=== PATIENT | female | born 1965 | race Caucasian/White ===

== ENCOUNTER 2017-11-10 23:12 | Inpatient (IN) ==
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
[2017-11-10 23:53] LABS: Basophils % 0.3 %; Eosinophils # 0.1 K/mcL (0.0-0.6); Eosinophils % 1.3 %; Hematocrit 29.4 % (35.3-44.9); Hemoglobin 9.9 g/dL (11.5-15.4); Immature Granulocytes % 0.4 % (0-4); Lymphocytes # 1.1 K/mcL (0.6-4.6); Lymphocytes % 15.2 %; Mean Corpuscular HGB Conc 33.7 g/dL (31.6-35.5); Mean Corpuscular Hemoglobin 29.4 pg (28.0-33.3); Mean Corpuscular Volume 87.2 fL (83.0-100.0); Mean Platelet Volume 10.5 fL (9.4-12.4); Monocytes # 0.7 K/mcL (0.0-1.3); Monocytes % 8.6 %; Neutrophils # 5.6 K/mcL (1.6-8.9); Platelet Count 255 K/mcL (140-400); Red Blood Count 3.37 M/mcL (3.82-4.97); Red Cell Distribution Width 12.6 % (11.5-14.5); Segmented Neutrophils % 74.2 %
[2017-11-11 00:05] LABS: BUN/Creatinine Ratio 14 (6-26); Blood Urea Nitrogen 47 mg/dL (6-20); Calcium 8.9 mg/dL (8.6-10.3); Carbon Dioxide 28 mEq/L (23-29); Chloride 93 mEq/L (98-107); Glucose 217 mg/dL (70-105); Osmolality,Calculated 301 (280-300); Potassium 3.4 mEq/L (3.5-5.1); Sodium 136 mEq/L (136-145); eGFR For African Americans 18 (> 60); eGFR For Non-African Americans 15 (> 60)
[2017-11-11 00:18] LABS: Bilirubin,Urine Negative (Negative); Blood,Urine Small (Negative); Clarity,Urine Turbid (Clear); Color,Urine Yellow (Yellow); Glucose,Urine (UA) 250 mg/dL (Normal); Ketones,Urine Negative (Negative); Leukocyte Esterase,Urine Large (Negative); Nitrite,Urine Negative (Negative); Protein,Urine Trace mg/dL (Neg-Trace); Specific Gravity,Urine 1.018 (1.010-1.025); Urobilinogen,Urine Normal (Normal)
[2017-11-11 00:23] LABS: Bacteria,Urine Many per hpf (None-Few); Squamous Epithelial Cell,Urine Many per lpf (None-Few); WBC,Urine TNTC per hpf (0-3)
[2017-11-11 00:45] LABS: Hyaline Casts,Urine Few per lpf (None-Few); Mucus,Urine Moderate (Few); Trichomonas,Urine Present (None Seen); Yeast,Urine Moderate per hpf (None Seen)
[2017-11-11 01:21] LABS: Acetaminophen < 10 mcg/mL (10-20); Ethanol < 10 mg/dL (Less than 10); Salicylate < 2.5 mg/dL (15.0-30.0)
[2017-11-11 01:24] LABS: Amphetamine Screen,Urine Negative ng/mL (Cutoff=1000); Barbiturate Screen,Urine Negative ng/mL (Cutoff=200); Benzodiazepines Screen,Urine Negative ng/mL (Cutoff=200); Cannabinoid Screen,Urine Negative ng/mL (Cutoff = 50); Cocaine Screen,Urine Positive ng/mL (Cutoff= 300); Opiate Screen,Urine Negative ng/mL (Cutoff=300); Phencyclidine Screen,Urine Negative ng/mL (Cutoff=25)
[2017-11-11] MEDS ORDERED: metroNIDAZOLE 500 MG TABLET PO ONE (02:34)
[2017-11-11] MEDS ORDERED: cefTRIAXone 1,000 MG in Water for inj. (sterile) 20 ML 10 ML IVP ONE (02:35)
[2017-11-11] MEDS ORDERED: 0.9 % Sodium Chloride 1,000 ML IVC ONE (02:35)
[2017-11-11] MEDS ORDERED: Naloxone 0.4 MG/ML INJ IVP PRN (05:39)
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
[2017-11-11] MEDS ORDERED: Dextrose Gel 15 GM/37.5 ML TUBE PO PRN ×2 (05:51)
[2017-11-11] MEDS ORDERED: *HR* Dextrose 50 % in Water (Syg) 50 ML SYRINGE IVP PRN (05:51)
[2017-11-11] MEDS ORDERED: D5% in Water 1,000 ML IVC PRN (05:51)
[2017-11-11] MEDS ORDERED: Artificial Tears SOLN 15 ML BOTTLE OP PRN (06:00)
[2017-11-11] MEDS: *HR* Heparin 5,000 UNIT/ML VIAL SQ SCH ×2 (07:03→17:53)
[2017-11-11] MEDS: 0.9 % Sodium Chloride 1,000 ML IVC SCH ×2 (07:06→13:20)
[2017-11-11] MEDS: Insulin DETEMIR 100 UNIT/ML X5UNITS SQ SCH (08:25)
[2017-11-11] MEDS: Insulin LISPRO 300 UNITS/3 ML VIAL SQ SCH ×4 (08:25→22:41)
[2017-11-11] MEDS: OXcarbazepine 150 MG TABLET PO SCH ×3 (15:43→23:48)
[2017-11-11] MEDS: Iron Polysaccharide Complex 150 MG CAPSULE PO SCH (15:53)
[2017-11-11] MEDS: Multivit/Ca/Min/Fe/FA 1 TAB TABLET PO SCH (15:53)
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
[2017-11-11] MEDS ORDERED: OXcarbazepine 150 MG TABLET PO SCH (21:00)
[2017-11-11] MEDS ORDERED: OXCARBAZEPINE 600 MG PO SCH (21:00)
[2017-11-11] MEDS: cefTRIAXone 1,000 MG in Water for inj. (sterile) 20 ML 10 ML IVP SCH (23:38)
[2017-11-12 04:26] LABS: Basophils % 0.6 %; Eosinophils # 0.1 K/mcL (0.0-0.6); Eosinophils % 2.3 %; Hematocrit 26.7 % (35.3-44.9); Hemoglobin 8.8 g/dL (11.5-15.4); Immature Granulocytes % 0.6 % (0-4); Lymphocytes # 1.4 K/mcL (0.6-4.6); Lymphocytes % 27.3 %; Mean Corpuscular Volume 88.1 fL (83.0-100.0); Mean Platelet Volume 11.1 fL (9.4-12.4); Monocytes # 0.5 K/mcL (0.0-1.3); Monocytes % 10.1 %; Platelet Count 225 K/mcL (140-400); Red Blood Count 3.03 M/mcL (3.82-4.97); Red Cell Distribution Width 12.6 % (11.5-14.5); Segmented Neutrophils % 59.1 %
[2017-11-12 04:39] LABS: Calcium 8.2 mg/dL (8.6-10.3); Magnesium 1.2 mg/dL (1.6-2.6); Potassium 3.5 mEq/L (3.5-5.1)
[2017-11-12] MEDS: *HR* Heparin 5,000 UNIT/ML VIAL SQ SCH ×2 (05:46→17:07)
[2017-11-12] MEDS: Multivit/Ca/Min/Fe/FA 1 TAB TABLET PO SCH (07:36)
[2017-11-12] MEDS: Iron Polysaccharide Complex 150 MG CAPSULE PO SCH (07:36)
[2017-11-12] MEDS: Insulin LISPRO 300 UNITS/3 ML VIAL SQ SCH ×4 (07:39→21:21)
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
[2017-11-12] MEDS: Insulin DETEMIR 100 UNIT/ML X5UNITS SQ SCH (12:21)
[2017-11-12] MEDS: cefTRIAXone 1,000 MG in Water for inj. (sterile) 20 ML 10 ML IVP SCH (17:07)
[2017-11-12] MEDS: OXcarbazepine 150 MG TABLET PO SCH (21:20)
[2017-11-13 05:41] LABS: Basophils # 0.1 K/mcL (0.0-0.2); Basophils % 0.7 %; Eosinophils # 0.2 K/mcL (0.0-0.6); Eosinophils % 3.2 %; Hematocrit 28.2 % (35.3-44.9); Hemoglobin 9.3 g/dL (11.5-15.4); Immature Granulocytes % 1.6 % (0-4); Lymphocytes # 1.8 K/mcL (0.6-4.6); Lymphocytes % 27.1 %; Mean Corpuscular Hemoglobin 29.3 pg (28.0-33.3); Mean Platelet Volume 10.9 fL (9.4-12.4); Monocytes # 0.5 K/mcL (0.0-1.3); Monocytes % 7.7 %; Platelet Count 261 K/mcL (140-400); Red Blood Count 3.17 M/mcL (3.82-4.97); Red Cell Distribution Width 12.7 % (11.5-14.5); Segmented Neutrophils % 59.7 %
[2017-11-13] MEDS: *HR* Heparin 5,000 UNIT/ML VIAL SQ SCH ×2 (05:44→16:59)
[2017-11-13 06:10] LABS: Calcium 8.4 mg/dL (8.6-10.3); Potassium 4.4 mEq/L (3.5-5.1)
[2017-11-13] MEDS: Insulin LISPRO 300 UNITS/3 ML VIAL SQ SCH ×4 (07:38→22:28)
[2017-11-13] MEDS: Insulin DETEMIR 100 UNIT/ML X5UNITS SQ SCH (08:38)
[2017-11-13] MEDS: Multivit/Ca/Min/Fe/FA 1 TAB TABLET PO SCH (08:38)
[2017-11-13] MEDS: Iron Polysaccharide Complex 150 MG CAPSULE PO SCH (08:38)
--- NOTE | 2017-11-13 10:10 | Urology - Consult Note ---
Date of Encounter: 11/13/17 Time of Encounter: 10:08 - Assessment and Plan (1) Hydronephrosis Current Visit: Yes Status: Acute Assessment and plan: 52-year-old woman with a history of right hydronephrosis. She is following with my partner, Dr. Boone, who is corning her workup. Although she does have a urinary tract infection, she does not show any signs of sepsis. There is preserved right renal function. No current need for right ureteral stent placement for right nephrostomy tube at this time. I discussed this case with Dr. Boone. He plans on following up with her as an outpatient which seems reasonable. I answered all of her questions. Qualifiers: Hydronephrosis type: with ureteropelvic junction obstruction Qualified Code (s): Q62.11 - Congenital occlusion of ureteropelvic junction (2) UTI (urinary tract infection) Current Visit: Yes Status: Acute Assessment and plan: 52-year-old woman with a history of a urinary tract infection growing out Staphylococcus. She is currently on ceftriaxone. We will see what the final cultures show for sensitivity. Hopefully, we will be able to transition her to an oral antibiotic such as Bactrim or dicloxacillin. Qualifiers: Urinary tract infection type: acute cystitis Hematuria presence: without hematuria Qualified Code(s): N30.00 - Acute cystitis without hematuria Urology CN:[facility] Consult date: 11/13/17 Reason for consult Urology: Hydronephrosis History of present illness: 52-year-old woman who is well-known to the urology service was seen in consultation for right-sided hydronephrosis. She was recently admitted for medical clearance prior to admission to a long-term. In her workup she was noted to have a urinary tract infection. Currently, gram-positive cocci are growing out. She has been treated for this infection. During her workup a renal and bladder ultrasound was performed which showed evidence of right hydronephrosis. She has a long history of right sided hydronephrosis and recently underwent a nuclear renal scan with IV Lasix. This showed concern for a partial right sided obstruction, but her renal function was well-preserved. She is not having much in the way of right-sided flank pain at this time. She does not show any signs of sepsis. She says she is urinating well. Past Med Surg Social Fam HX - Past Medical History Medical history: diabetes, other Psychiatric history: bipolar, depression - Past Surgical History Surgical History: no surgical history - Social History Smoking Status: Never smoker Smokeless Tobacco Status: No Alcohol use: none Drug use: cocaine, other - Family History Father Living Status: Still Living Medications and Allergies Artificial Tear Drops [Isopto Tears] 1 drop OP AD 04/01/15 [History] Cyclobenzaprine [Flexeril] 10 mg PO TID PRN 04/01/15 [History] Insulin ASPART [NovoLOG] 5 - 15 unit SQ TIDWM 04/01/15 [History] Calcitriol [Rocaltrol] 0.25 mcg PO MOWEFR 11/11/17 [History] Insulin Degludec [Tresiba Flextouch U-100] 20 unit SQ DAILY 11/11/17 [History] Iron Polysaccharide Complex [Pro Fe] 180 mg PO QAM 11/11/17 [History] Multivit-Minerals/Folic Acid [Adult Multi Gummies] 200 mcg PO DAILY 11/11/17 [ History] OXcarbazepine [Oxcarbazepine] 600 mg PO HS 11/11/17 [History] Sertraline [Zoloft] 25 mg PO DAILY 11/11/17 [History] 3 Allergy/AdvReac Type Severity Reaction Status Date / Time No Known Allergies Allergy Verified 11/11/17 12:56 Review of Systems - Constitutional no chills, no fever(s) - EENT Nose, mouth and throat: no dizziness - Cardiovascular no chest pain - Respiratory no dyspnea - Gastrointestinal no nausea, no vomiting - Genitourinary Genitourinary: no flank pain, no hematuria - Musculoskeletal no back pain - Integumentary no erythema, no rash - Neurological no weakness - Psychiatric no suicidal ideation - Hematologic/Lymphatic no easy bleeding - Allergic/Immunologic no wheezing Exam Initial Vital Signs Temp Pulse Resp BP Pulse Ox 98.6 F 88 18 98/64 96 11/10/17 23:14 11/10/17 23:14 11/10/17 23:14 11/10/17 23:14 11/10/17 23:14 - General physical appearance Present: well developed, well nourished, no distress - Eyes Absent: icteric - ENT Present: normal nares - Neck Present: trachea midline - Respiratory Present: normal respiratory effort - Cardiovascular Cardiovascular exam IM: RRR - Abdomen Abdomen: Present: soft Urology Results - Labs 11/13/17 04:45 11/13/17 04:45 Abnormal lab results RBC 3.17 M/mcL (3.82-4.97) L 11/13/17 04:45 Hgb 9.3 g/dL (11.5-15.4) L 11/13/17 04:45 Hct 28.2 % (35.3-44.9) L 11/13/17 04:45 BUN 34 mg/dL (6-20) H 11/13/17 04:45 Creatinine 2.18 mg/dL (0.60-1.20) H 11/13/17 04:45 Est GFR ( Amer) 29 (> 60) L 11/13/17 04:45 Est GFR (Non-Af Amer) 24 (> 60) L 11/13/17 04:45 Glucose 60 mg/dL (70-105) L 11/13/17 04:45 POC Glucose 229 mg/dL (58-89) H 11/12/17 19:09 Calcium 8.4 mg/dL (8.6-10.3) L 11/13/17 04:45 Magnesium 1.2 mg/dL (1.6-2.6) L 11/12/17 03:07 Urine Clarity Turbid (Clear) A 11/11/17 00:03 Urine Glucose (UA) 250 mg/dL (Normal) H 11/11/17 00:03 Urine Blood Small (Negative) H 11/11/17 00:03 Ur Leukocyte Esterase Large (Negative) H 11/11/17 00:03 Urine Microscopic RBC 3-5 per hpf (0-3) H 11/11/17 00:03 Urine Microscopic WBC TNTC per hpf (0-3) H 11/11/17 00:03 Ur Squamous Epith Cells Many per lpf (None-Few) H 11/11/17 00:03 Urine Bacteria Many per hpf (None-Few) H 11/11/17 00:03 Urine Mucus Moderate (Few) H 11/11/17 00:03 Urine Trichomonas Present (None Seen) A 11/11/17 00:03 Urine Yeast Moderate per hpf (None Seen) H 11/11/17 00:03 Salicylates < 2.5 mg/dL (15.0-30.0) L 11/10/17 23:32 Acetaminophen < 10 mcg/mL (10-20) L 11/10/17 23:32 Urine Cocaine Screen Positive ng/mL (Cutoff= 300) H 11/11/17 00:03 Diabetes panel 11/13/17 Range/Units 04:45 Sodium 139 (136-145) mEq/L Potassium 4.4 (3.5-5.1) mEq/L Chloride 101 (98-107) mEq/L Carbon Dioxide 29 (23-29) mEq/L BUN 34 H (6-20) mg/dL Creatinine 2.18 H (0.60-1.20) mg/dL Glucose 60 L (70-105) mg/dL Calcium 8.4 L (8.6-10.3) mg/dL Calcium panel 11/13/17 Range/Units 04:45 Calcium 8.4 L (8.6-10.3) mg/dL Pituitary panel 11/13/17 Range/Units 04:45 Sodium 139 (136-145) mEq/L Potassium 4.4 (3.5-5.1) mEq/L Chloride 101 (98-107) mEq/L Carbon Dioxide 29 (23-29) mEq/L BUN 34 H (6-20) mg/dL Creatinine 2.18 H (0.60-1.20) mg/dL Glucose 60 L (70-105) mg/dL Calcium 8.4 L (8.6-10.3) mg/dL Adrenal panel 11/13/17 Range/Units 04:45 Sodium 139 (136-145) mEq/L Potassium 4.4 (3.5-5.1) mEq/L Chloride 101 (98-107) mEq/L Carbon Dioxide 29 (23-29) mEq/L BUN 34 H (6-20) mg/dL Creatinine 2.18 H (0.60-1.20) mg/dL Glucose 60 L (70-105) mg/dL Calcium 8.4 L (8.6-10.3) mg/dL All other labs normal. - Imaging CT scan - abdomen: report reviewed, image reviewed CT scan - pelvis: report reviewed, image reviewed US - abdomen: report reviewed, image reviewed Additional studies: Nuclear renal scan reviewed. Consult Discharge Plan - Plan Referrals: Tanner Renteria, PAC [Primary Care Provider] -
[2017-11-13] MEDS ORDERED: hydrOXYzine pamoate 25 MG CAPSULE PO STA ×2 (11:20→16:20)
--- NOTE | 2017-11-13 12:25 | Nephrology Consult Note ---
<Jony Haley - Last Filed: 11/13/17 15:48> Date of Encounter: 11/13/17 Time of Encounter: 12:24 Assessment and Plan (1) Acute kidney injury superimposed on chronic kidney disease Status: Acute JAKE on CKD III. Patient reports CKD3 since 2014. Cr on admission was 3.30 ( baseline 1.5-1.75). Was improving, and is now stable around 2.18. Renal U/S identified a mild R hydronephrosis. And she also has a UTI on this admission, and has recently started using Crack Cocaine. All are most likely contributors to her JAKE. Will further workup JAKE. - Fifi, UCr, Ueosinophils, Uric Acid - pending. - renal diet - continue fluid resuscitation - avoid nephrotoxins. (2) Crack cocaine use Status: Acute Patient educated to quit using crack cocaine. (3) Hep C w/o coma, chronic Status: Acute Patient self reports hx of hep C. Ordered hep panel. (4) Stage 3 chronic kidney disease due to type 2 diabetes mellitus Status: Chronic see above (5) Trichomonas infection Status: Acute (6) UTI (urinary tract infection) Status: Acute per primary team Qualifiers: Urinary tract infection type: acute cystitis Hematuria presence: without hematuria Qualified Code(s): N30.00 - Acute cystitis without hematuria History of Present Illness - Reason for Consult Consult date: 11/13/17 Acute Kidney Injury, Chronic Kidney Disease Requesting physician: Satnam Vaca - Chief Complaint UTI - History of Present Illness Ms Kuhn is a 52 yo F w/ pmh of CKD presents with UTI, R hydro, trichomonas infection, DM. Nephrology is consulted due to JAKE on CKD. Patient is poor historian, and was talking tangentially. Patient states that she has had hx of ckd 3 since 2014, and that she take renal vitamins for it. Patient says she is stressed about her housing situation. Patient states she has been feeling tired for the last few months. She has been sober for 7 years, and decided 1 month ago to start smoking crack on an every other day basis with her new boyfriend. It helps her not to feel tired all the time. patient also states she has hep C and is interested in treatment. Patient denies current chest pain , sob, n/v/f/c. Past Med Surg Social Fam HX - Past Medical History Medical history: diabetes, other Psychiatric history: bipolar, depression - Past Surgical History Surgical History: no surgical history - Social History Smoking Status: Never smoker Smokeless Tobacco Status: No Alcohol use: none Drug use: cocaine, other - Family History Father Living Status: Still Living Medications and Allergies Artificial Tear Drops [Isopto Tears] 1 drop OP AD 04/01/15 [History] Cyclobenzaprine [Flexeril] 10 mg PO TID PRN 04/01/15 [History] Insulin ASPART [NovoLOG] 5 - 15 unit SQ TIDWM 04/01/15 [History] Calcitriol [Rocaltrol] 0.25 mcg PO MOWEFR 11/11/17 [History] Insulin Degludec [Tresiba Flextouch U-100] 20 unit SQ DAILY 11/11/17 [History] Iron Polysaccharide Complex [Pro Fe] 180 mg PO QAM 11/11/17 [History] Multivit-Minerals/Folic Acid [Adult Multi Gummies] 200 mcg PO DAILY 11/11/17 [ History] OXcarbazepine [Oxcarbazepine] 600 mg PO HS 11/11/17 [History] Sertraline [Zoloft] 25 mg PO DAILY 11/11/17 [History] Amoxicillin [Amoxil] 500 mg PO BIDWM #11 capsule 11/15/17 [Rx] 3 Allergy/AdvReac Type Severity Reaction Status Date / Time No Known Allergies Allergy Verified 11/11/17 12:56 Review of Systems All Systems: reviewed and no additional remarkable complaints except as stated Exam - Vital Signs Vital signs: Initial Vital Signs Temp Pulse Resp BP Pulse Ox 98.6 F 88 18 98/64 96 11/10/17 23:14 11/10/17 23:14 11/10/17 23:14 11/10/17 23:14 11/10/17 23:14 Vital Signs - Last 8 Hours Temp Pulse Resp BP Pulse Ox 11/13/17 10:25 99.4 F 90 18 143/73 99 11/13/17 10:17 98.6 F 82 15 111/66 100 11/13/17 08:41 100 11/13/17 07:25 97.6 F 72 16 98/63 100 Intake and Output 11/12/17 11/13/17 11/13/17 23:59 07:59 15:59 Intake Total 440 / 440 Output Total 800 / 800 0 / 0 Balance -360 / -360 0 / 0 Intake: Oral 440 / 440 Output: Urine 800 / 800 0 / 0 Other: Meal Dinner Percent of Meal Consumed 100% Weight 56.155 kg Blood Glucose* 229 99 250 Patient Weight 11/13/17 23:59 Weight 56.155 kg - General Appearance General appearance: appears started age, fatigue, anxious EENT: mucous membranes moist Neck: supple Respiratory: clear Cardiology: regular rate, regular rhythm Gastrointestinal: hypoactive bowel sounds Neurologic: alert and oriented x3 Psychiatric: pressured speech Results - Lab Results 11/13/17 04:45 11/13/17 04:45 Most recent lab results Calcium 8.4 mg/dL (8.6-10.3) L 11/13/17 04:45 Magnesium 1.2 mg/dL (1.6-2.6) L 11/12/17 03:07 Consult Discharge Plan - Plan Instructions: Acute Kidney Injury (DC), Urinary Tract Infection in Women (DC), Hydronephrosis (DC) Additional Instructions: Please follow up with your primary care physician within five days after your discharge from the hospital Please follow up with nephrology within two to four weeks after your discharge from the hospital. Please obtain the prescribed lab work prior to your follow up with your primary care physician. Continue oral antibiotics as prescribed. Resume all other home medications as prescribed by your primary care physician. Referrals: Galilea Jaffe [Advanced Practice Nurse] - 11/20/17 1:30 pm (Please follow up as schedule...) Gregg Kim DO [Partnered Physician] - 11/28/17 9:30 am (Please follow up as schedule...) Prescriptions: Amoxicillin [Amoxil] 500 mg PO BIDWM #11 capsule <Shirley Grant - Last Filed: 11/20/17 00:20> Date of Encounter: 11/13/17 Exam - Vital Signs Vital signs: Initial Vital Signs Temp Pulse Resp BP Pulse Ox 98.6 F 88 18 98/64 96 11/10/17 23:14 11/10/17 23:14 11/10/17 23:14 11/10/17 23:14 11/10/17 23:14 Results - Lab Results 11/15/17 05:31 11/15/17 05:31 Most recent lab results Calcium 8.6 mg/dL (8.6-10.3) 11/15/17 05:31 Phosphorus 4.3 mg/dL (2.7-4.5) 11/15/17 05:31 Magnesium 1.3 mg/dL (1.6-2.6) L 11/15/17 05:31 Urine Creatinine 45 mg/dL 11/13/17 15:59 Urine Sodium 96.5 mEq/L 11/13/17 15:59 - Attending Attestation I examined this patient and my medical decision-making was reviewed with the Resident Physician. I agree with the documented findings, disposition and treatment plan as described except to the extent set forth below. Pt seen and examined with PMH of stage 3 CKD admitted for "medical clearance" and found with elevated SCr from baseline. She was also noted with UTI and mild R hydronephrosis on US with urology consulted. Etiology of JAKE likley pre-renal vz obstructive, notable also is recent use of crack cocaine which can cause vasospams. Agree with continued fluid resuscitation. JAKE workup started. Avoid nephrotoxins if possible. 

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
[2017-11-13 17:25] LABS: Uric Acid 8.6 mg/dL (2.3-7.6)
[2017-11-13 18:35] LABS: Hepatitis A Antibody IgM Nonreactive (Nonreactive); Hepatitis B Core IgM Nonreactive (Nonreactive); Hepatitis B Surface Antigen Nonreactive (Nonreactive)
[2017-11-13] MEDS: OXcarbazepine 150 MG TABLET PO SCH (22:29)
[2017-11-13 23:54] LABS: Sodium, Urine 96.5 mEq/L
[2017-11-14 04:25] LABS: Basophils % 0.6 %; Eosinophils # 0.1 K/mcL (0.0-0.6); Hematocrit 26.5 % (35.3-44.9); Hemoglobin 8.7 g/dL (11.5-15.4); Lymphocytes # 1.8 K/mcL (0.6-4.6); Lymphocytes % 27.4 %; Mean Corpuscular HGB Conc 32.8 g/dL (31.6-35.5); Mean Corpuscular Hemoglobin 29.3 pg (28.0-33.3); Mean Corpuscular Volume 89.2 fL (83.0-100.0); Mean Platelet Volume 10.5 fL (9.4-12.4); Monocytes # 0.6 K/mcL (0.0-1.3); Monocytes % 9.8 %; Neutrophils # 3.7 K/mcL (1.6-8.9); Platelet Count 248 K/mcL (140-400); Red Blood Count 2.97 M/mcL (3.82-4.97); Red Cell Distribution Width 12.7 % (11.5-14.5); Segmented Neutrophils % 58.2 %
[2017-11-14 04:43] LABS: Calcium 8.3 mg/dL (8.6-10.3)
[2017-11-14] MEDS: *HR* Heparin 5,000 UNIT/ML VIAL SQ SCH ×2 (05:00→17:36)
[2017-11-14] MEDS: Iron Polysaccharide Complex 150 MG CAPSULE PO SCH (08:29)
[2017-11-14] MEDS: Multivit/Ca/Min/Fe/FA 1 TAB TABLET PO SCH (08:29)
[2017-11-14] MEDS: Insulin LISPRO 300 UNITS/3 ML VIAL SQ SCH ×4 (08:51→22:28)
[2017-11-14] MEDS: Insulin DETEMIR 100 UNIT/ML X5UNITS SQ SCH (08:51)
--- NOTE | 2017-11-14 08:52 | Nephrology Progress Note ---
<TeraJony - Last Filed: 11/14/17 12:50> Date of Encounter: 11/14/17 Time of Encounter: 08:52 - Assessment and Plan (1) Acute kidney injury superimposed on chronic kidney disease Status: Acute JAKE on CKD 3 most likely 2/2 ATN from crack cocaine induced ischemia, and dehydration. This is supported by FENa which is 3.4% suggestive of intrinsic renal damage. Cr has slight improvement and most likely plateaued at this time. Will continue to follow. Patient will need to be followed up outpatient with nephrology after discharge. No SOUND RECORDIST rrequired at this time. Patient is non -oliguric. - avoid nephrotoxins - renal diet - strict I/O - continue oral intake (2) Crack cocaine use Status: Acute advised cessation (3) Hep C w/o coma, chronic Status: Acute labs pending (4) Stage 3 chronic kidney disease due to type 2 diabetes mellitus Status: Chronic see above (5) Trichomonas infection Status: Acute per primary care team (6) UTI (urinary tract infection) Status: Acute per primary care team Qualifiers: Urinary tract infection type: acute cystitis Hematuria presence: without hematuria Qualified Code(s): N30.00 - Acute cystitis without hematuria Subjective Principal diagnosis: JAKE Interval history: Mr Kuhn is a 52 yo F w/ pmh of hep C, CKD3, crack cocaine usage presents with JAKE. Nephrology is consulted for JAKE. Patient is seen and examined. No events overnight and no new complaints. Patient denies f/c/n/v. Objective - Vital Signs Vital signs: Vital Signs Temp Pulse Resp BP Pulse Ox 11/14/17 07:29 97.4 F L 71 18 93/59 97 11/14/17 05:23 98.2 F 118 17 106/65 90 11/13/17 23:48 97.5 F L 71 16 106/68 100 11/13/17 21:07 98 F 70 16 93/61 99 11/13/17 15:20 98.4 F 80 15 132/81 100 11/13/17 10:25 99.4 F 90 18 143/73 99 11/13/17 10:17 98.6 F 82 15 111/66 100 Intake and Output 11/13/17 11/14/17 11/14/17 23:59 07:59 15:59 Intake Total 250 / 250 400 / 400 240 / 240 Output Total 500 / 500 Balance 250 / 250 -100 / -100 240 / 240 Intake: Oral 250 / 250 400 / 400 240 / 240 Output: Urine 500 / 500 Other: Meal Breakfast Percent of Meal Consumed 75% # Voids 2 2 Weight 55.5 kg Blood Glucose* 332 136 Patient Weight 11/14/17 23:59 Weight 55.5 kg - General Appearance General appearance: Present: well-developed, well-nourished, appears started age Neck: Present: supple Respiratory: Present: clear Cardiology: Present: no edema, regular rate, regular rhythm Gastrointestinal: Present: hypoactive bowel sounds, distended Integumentary: Present: warm and dry Neurologic: Present: alert and oriented x3 Psychiatric: Present: mood/affect appropriate, cooperative, pressured speech - Lab 11/14/17 03:59 11/14/17 03:59 Most recent lab results Calcium 8.3 mg/dL (8.6-10.3) L 11/14/17 03:59 Magnesium 1.2 mg/dL (1.6-2.6) L 11/12/17 03:07 Urine Creatinine 45 mg/dL 11/13/17 15:59 Urine Sodium 96.5 mEq/L 11/13/17 15:59 Consult Discharge Plan - Plan Instructions: Acute Kidney Injury (DC), Urinary Tract Infection in Women (DC), Hydronephrosis (DC) Additional Instructions: Please follow up with your primary care physician within five days after your discharge from the hospital Please follow up with nephrology within two to four weeks after your discharge from the hospital. Please obtain the prescribed lab work prior to your follow up with your primary care physician. Continue oral antibiotics as prescribed. Resume all other home medications as prescribed by your primary care physician. Referrals: Galilea Jaffe [Advanced Practice Nurse] - 11/20/17 1:30 pm (Please follow up as schedule...) Gregg Kim DO [Partnered Physician] - 11/28/17 9:30 am (Please follow up as schedule...) <Shirley Grant - Last Filed: 12/12/17 23:18> Date of Encounter: 11/14/17 Objective - Lab 11/15/17 05:31 11/15/17 05:31 Most recent lab results Calcium 8.6 mg/dL (8.6-10.3) 11/15/17 05:31 Phosphorus 4.3 mg/dL (2.7-4.5) 11/15/17 05:31 Magnesium 1.3 mg/dL (1.6-2.6) L 11/15/17 05:31 Urine Creatinine 45 mg/dL 11/13/17 15:59 Urine Sodium 96.5 mEq/L 11/13/17 15:59 - Attending Attestation I examined this patient and my medical decision-making was reviewed with the Resident Physician. I agree with the documented findings, disposition and treatment plan as described except to the extent set forth below. Pt seen and examined with elevated SCr from baseline consistent with JAKE likely from vasospasms from cocaine use and relative volume depletion. SCr now at 2.12 , GFR 24. UOP not documented. Continue IVF for now. Continue to avoid nephrotoxins if possible.
[2017-11-14 09:59] LABS: % Iron Saturation 45 % (15-50); Iron 133 mcg/dL (50-170); Transferrin 210 mg/dL (203-362)
[2017-11-14 10:22] LABS: Folate 16.4 ng/mL (3.0-16.0)
[2017-11-14] MEDS: hydrOXYzine pamoate 25 MG CAPSULE PO PRN (11:46)
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
[2017-11-14] MEDS: 0.9 % Sodium Chloride 1,000 ML IVC SCH ×2 (15:27→18:11)
[2017-11-14] MEDS: Acetaminophen 325 MG TABLET PO PRN (15:45)
[2017-11-14] MEDS: Amoxicillin 500 MG CAPSULE PO SCH (17:36)
[2017-11-14] MEDS: OXcarbazepine 150 MG TABLET PO SCH (22:28)
[2017-11-15] MEDS: Acetaminophen 325 MG TABLET PO PRN (05:06)
[2017-11-15] MEDS: hydrOXYzine pamoate 25 MG CAPSULE PO PRN (05:07)
[2017-11-15] MEDS: *HR* Heparin 5,000 UNIT/ML VIAL SQ SCH (05:07)
[2017-11-15 06:06] LABS: Basophils % 0.6 %; Eosinophils # 0.1 K/mcL (0.0-0.6); Eosinophils % 2.1 %; Hematocrit 28.6 % (35.3-44.9); Hemoglobin 9.1 g/dL (11.5-15.4); Immature Granulocytes % 2.3 % (0-4); Lymphocytes # 1.4 K/mcL (0.6-4.6); Lymphocytes % 21.1 %; Mean Corpuscular HGB Conc 31.8 g/dL (31.6-35.5); Mean Corpuscular Hemoglobin 28.7 pg (28.0-33.3); Mean Corpuscular Volume 90.2 fL (83.0-100.0); Mean Platelet Volume 11.7 fL (9.4-12.4); Monocytes # 0.6 K/mcL (0.0-1.3); Monocytes % 8.4 %; Neutrophils # 4.5 K/mcL (1.6-8.9); Platelet Count 183 K/mcL (140-400); Red Blood Count 3.17 M/mcL (3.82-4.97); Red Cell Distribution Width 12.9 % (11.5-14.5); Segmented Neutrophils % 65.5 %
[2017-11-15 06:23] LABS: Calcium 8.6 mg/dL (8.6-10.3); Magnesium 1.3 mg/dL (1.6-2.6); Phosphorous 4.3 mg/dL (2.7-4.5); Potassium 4.6 mEq/L (3.5-5.1)
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
[2017-11-15] MEDS: 0.9 % Sodium Chloride 1,000 ML IVC SCH (07:47)
[2017-11-15] MEDS: Insulin LISPRO 300 UNITS/3 ML VIAL SQ SCH ×2 (07:48→12:08)
[2017-11-15] MEDS: Amoxicillin 500 MG CAPSULE PO SCH (08:34)
[2017-11-15] MEDS: Multivit/Ca/Min/Fe/FA 1 TAB TABLET PO SCH (08:34)
[2017-11-15] MEDS: Iron Polysaccharide Complex 150 MG CAPSULE PO SCH (08:34)
[2017-11-15] MEDS: Insulin DETEMIR 100 UNIT/ML X5UNITS SQ SCH (08:35)
[2017-11-15] MEDS ORDERED: Magnesium Oxide 400 MG TABLET PO SCH (09:00)
[2017-11-15 09:19] LABS: Hepatitis C Virus Antibody Reactive (Nonreactive)
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
[2017-11-15 11:41] VITALS: BP 123/67
== END 2017-11-15 15:24 | disposition home or self-care (01) | DRG 683 ==
LOC: 2ANU 23:12 → EMEROO 23:12 → 2ANU 11-11 05:05 → SUATTDRO 11-11 05:39
PROVIDERS: ADMIT Internal Medicine Nephrology; ATTEND Internal Medicine

== ENCOUNTER 2017-11-27 12:29 | Inpatient (IN) ==
--- NOTE | 2017-11-27 12:38 | Emergency Department Note ---
Disposition Clinical Impression: Diabetes, Hypoglycemia Disposition: Home, Self-Care Condition: Good Instructions: How to Check Your Blood Sugar (ED), Diabetes Mellitus Type 1 in Adults (ED), Diabetic Hypoglycemia (ED) Reasons to Return/Additional Instructions: Please be sure to eat every time you take your insulin. You should eat food that has sugar in it if you notice that your blood sugar is below 60. Please follow-up with your primary care physician by Monday. If you have any questions or concerns or signs or symptoms are concerning to you please return to the emergency department. Referrals: Tanner Renteria, PAC [Primary Care Provider] - Forms: ED Satisfaction Letter, Work/School Release General Adult HPI - General Stated complaint: low sugar Time Seen by Provider: 11/27/17 12:32 - Related Data Home Medications Medication Instructions Recorded Confirmed Artificial Tear Drops [Isopto 1 drop OP AD 04/01/15 11/11/17 Tears] Cyclobenzaprine [Flexeril] 10 mg PO TID PRN 04/01/15 11/11/17 Insulin ASPART [NovoLOG] 5 - 15 unit SQ TIDWM 04/01/15 11/11/17 Calcitriol [Rocaltrol] 0.25 mcg PO MOWEFR 11/11/17 11/11/17 Insulin Degludec [Tresiba 20 unit SQ DAILY 11/11/17 11/11/17 Flextouch U-100] Iron Polysaccharide Complex [Pro 180 mg PO QAM 11/11/17 11/11/17 Fe] Multivit-Minerals/Folic Acid 200 mcg PO DAILY 11/11/17 11/11/17 [Adult Multi Gummies] OXcarbazepine [Oxcarbazepine] 600 mg PO HS 11/11/17 11/11/17 Sertraline [Zoloft] 25 mg PO DAILY 11/11/17 11/11/17 Previous Rx's Medication Instructions Recorded Amoxicillin [Amoxil] 500 mg PO BIDWM #11 capsule 11/15/17 Allergies Allergy/AdvReac Type Severity Reaction Status Date / Time No Known Allergies Allergy Verified 11/11/17 12:56 Past Medical History - Past Medical History Medical history: Reports: diabetes, other Surgical history: Reports: no surgical history Psychiatric history: Reports: bipolar, depression - Social History Smoking Status: Never smoker Smokeless Tobacco Status: No Alcohol use: Reports: none Drug use: Reports: cocaine, other Course Vital Signs Temperature 92 F L 11/27/17 12:38 Pulse Rate 62 11/27/17 12:38 Respiratory Rate 18 11/27/17 12:38 Blood Pressure 108/81 11/27/17 12:38 O2 Sat by Pulse Oximetry 100 11/27/17 12:38 Temperature 92 F L 11/27/17 12:38 Pulse Rate 62 11/27/17 12:38 Respiratory Rate 18 11/27/17 12:38 Blood Pressure 108/81 11/27/17 12:38 O2 Sat by Pulse Oximetry 100 11/27/17 12:38 Oxygen Delivery Oxygen Delivery Room Air Medical Decision Making - Lab Data Lab Results 11/27/17 Range/Units 12:36 POC Glucose 167 H (70-99) mg/dL Attestation Statement - Attestation Attestation: I examined this patient and my medical decision-making was reviewed with the Resident Physician. I agree with the documented findings, disposition and treatment plan as described except to the extent set forth below. 7 patient presents to the emergency department for low blood sugar. She was found in the 40s by EMS and given oral glucose and an amp of D50. She is now awake and alert but complains of being shaky. Patient's been a diabetic since the age of 29. Patient awake alert no distress on examination. Abdomen soft. Plan. Meal tray reevaluate. Patient is been monitored for 2 hours. Blood sugar over 200. She ate a meal tray. She is mentating at baseline. Patient is discharged home.
--- NOTE | 2017-11-27 14:17 | Emergency Department Note ---
Disposition Clinical Impression: Hypoglycemia, UTI (urinary tract infection), Sepsis, Crack cocaine use, Hypothermia Diabetes Qualifiers: Diabetes mellitus type: type 1 Diabetes mellitus complication status: without complication Qualified Code(s): E10.9 - Type 1 diabetes mellitus without complications Disposition: Admitted As Inpatient Condition: Good Instructions: How to Check Your Blood Sugar (ED), Diabetes Mellitus Type 1 in Adults (ED), Diabetic Hypoglycemia (ED) Reasons to Return/Additional Instructions: Please be sure to eat every time you take your insulin. You should eat food that has sugar in it if you notice that your blood sugar is below 60. Please follow-up with your primary care physician by Monday. If you have any questions or concerns or signs or symptoms are concerning to you please return to the emergency department. Referrals: Tanner Renteria, PAC [Primary Care Provider] - Forms: ED Satisfaction Letter, Work/School Release Time of Disposition: 14:19 General Adult HPI - General Chief complaint: ED General Medical Stated complaint: low sugar Time Seen by Provider: 11/27/17 12:32 Source: patient, EMS Nursing Notes Reviewed: Yes Vital Signs Reviewed: Yes - History of Present Illness HPI Narrative: Patient took her insulin this morning and did not eat. Found to be in the low 50s to high 40s by EMS. They gave her 1 amp of glucose. A was patient's blood sugar greater than 200. She is now around 125 while here. Mentating appropriately with no complaints Pain Scale: 0 - Related Data Home Medications Medication Instructions Recorded Confirmed Artificial Tear Drops [Isopto 1 drop OP AD 04/01/15 11/27/17 Tears] Insulin ASPART [NovoLOG] 0 unit SQ TID 04/01/15 11/27/17 Calcitriol [Rocaltrol] 0.25 mcg PO MOWEFR 11/11/17 11/27/17 Insulin Degludec [Tresiba 20 unit SQ QAM 11/11/17 11/27/17 Flextouch U-100] Iron Polysaccharide Complex [Pro 180 mg PO QAM 11/11/17 11/27/17 Fe] Multivit-Minerals/Folic Acid 200 mcg PO DAILY 11/11/17 11/27/17 [Adult Multi Gummies] OXcarbazepine [Oxcarbazepine] 600 mg PO HS 11/11/17 11/27/17 Sertraline [Zoloft] 25 mg PO DAILY 11/11/17 11/27/17 Cyclobenzaprine [Flexeril] 10 mg PO TID 11/27/17 11/27/17 lamoTRIgine [Lamictal] 25 mg PO BID 11/27/17 11/27/17 Allergies Allergy/AdvReac Type Severity Reaction Status Date / Time No Known Allergies Allergy Verified 11/27/17 18:07 All systems ED: reviewed and negative except as stated. Constitutional: Denies: fever, chills ENT ED: Denies: congestion Cardiovascular: Denies: chest pain, syncope Respiratory: Denies: cough, dyspnea Gastrointestinal: Denies: abdominal pain, nausea, vomiting, diarrhea Genitourinary: Denies: urgency, dysuria, frequency Musculoskeletal: Denies: back pain, neck pain Integumentary: Denies: rash, abrasion Neurological: Reports: weakness. Denies: headache Past Medical History - Past Medical History Attestation: Yes The following information was validated with the patient. Source: patient Medical history: Reports: diabetes, other Surgical history: Reports: no surgical history Psychiatric history: Reports: bipolar, depression - Social History Smoking Status: Never smoker Smokeless Tobacco Status: No Alcohol use: Reports: none Drug use: Reports: cocaine, other Physical Exam - General Limitations: no limitations General appearance: alert, in no apparent distress - Head Head exam: atraumatic, normocephalic, normal inspection - Eye Eye exam: Present: normal appearance, PERRL, EOMI. Absent: scleral icterus - ENT ENT exam: normal exam, normal oropharynx, mucous membranes moist - Neck Neck exam: Present: normal inspection, full ROM, trachea midline - Chest Chest inspection: Present: normal inspection, symmetric chest wall rise. Absent : tenderness - Respiratory Respiratory exam: Present: normal lung sounds bilaterally. Absent: respiratory distress - Cardiovascular Cardiovascular exam: Present: regular rate, normal rhythm, normal heart sounds - Abdominal Exam Abdominal exam: Present: soft, Non-Tender. Absent: organomegaly - Extremities Exam Extremities exam: Present: normal inspection, full ROM. Absent: tenderness, pedal edema - Back Exam Back exam: Present: normal inspection, full ROM. Absent: tenderness - Neurological Exam Neurological exam: Present: alert, oriented X3 - Psychiatric Psychiatric exam: Present: normal affect, normal mood - Skin Skin exam: Present: warm, dry, intact, normal color Course Course Narrative: Patient brought in by EMS for hypoglycemia was given 1 amp of D50 are to arrival. Blood sugar is within normal limits at this time. She has no complaints currently. We will feed patient and reassess. Uncertain clear heart tones are normal abdomen is soft and nontender. She states that she did take her insulin this morning and did not eat. She states this is happened about a month ago. She states that she attempted to get her blood sugar up prior to calling EMS however was unable to do this. On further evaluation she was taking sugar-free food in to increase her glucose. Education will be provided to the patient on how to control her blood sugar better and that she should eat with insulin administration. She has no complaints currently. - Reevaluation(s) Reevaluation #1: Patient reassessed. She has eaten her food with no issues. She is requesting discharge at this time. I feel this is reasonable. Her blood sugars back to normal limits. We will stress that she make sure to eat when she takes her insulin. Time: 14:16 Vital Signs Temperature 92 F L 11/27/17 12:38 Pulse Rate 62 11/27/17 12:38 Respiratory Rate 18 11/27/17 12:38 Blood Pressure 108/81 11/27/17 12:38 O2 Sat by Pulse Oximetry 100 11/27/17 12:38 Temperature 97 F L 11/27/17 16:43 Pulse Rate 70 11/27/17 16:43 Respiratory Rate 23 11/27/17 16:43 Blood Pressure 124/96 11/27/17 16:43 O2 Sat by Pulse Oximetry 99 11/27/17 16:43 Oxygen Delivery Oxygen Delivery Room Air Medical Decision Making - Lab Data Result diagrams: 11/27/17 14:34 11/27/17 17:17 Lab Results 11/27/17 11/27/17 11/27/17 Range/Units 12:36 14:02 14:21 WBC (4.3-11.1) K/mcL RBC (3.82-4.97) M/mcL Hgb (11.5-15.4) g/dL Hct (35.3-44.9) % MCV (83.0-100.0) fL MCH (28.0-33.3) pg MCHC (31.6-35.5) g/dL RDW (11.5-14.5) % Plt Count (140-400) K/mcL MPV (9.4-12.4) fL Immature Gran % (0-4) % Seg Neutrophils % % Lymphocytes % % Monocytes % % Eosinophils % % Basophils % % Neutrophils # (1.6-8.9) K/mcL Lymphocytes # (0.6-4.6) K/mcL Monocytes # (0.0-1.3) K/mcL Eosinophils # (0.0-0.6) K/mcL Basophils # (0.0-0.2) K/mcL Sodium Potassium Chloride Carbon Dioxide BUN Creatinine Est GFR ( Amer) Est GFR (Non-Af Amer) BUN/Creatinine Ratio Glucose POC Glucose 167 H 154 H 260 H (70-99) mg/dL Calculated Osmolality Lactic Acid (0.5-2.2) mmol/L Calcium Phosphorus Magnesium Total Bilirubin Direct Bilirubin Indirect Bilirubin AST ALT Alkaline Phosphatase Troponin I (< 0.04) ng/mL Serum Total Protein Albumin Globulin Albumin/Globulin Ratio Urine Color (Yellow) Urine Clarity (Clear) Urine pH (5.0-8.0) pH Units Ur Specific [place] (1.010-1.025) Urine Protein (Neg-Trace) mg/dL Urine Glucose (UA) (Normal) mg/dL Urine Ketones (Negative) mg/dL Urine Blood (Negative) Urine Nitrite (Negative) Urine Bilirubin (Negative) Urine Urobilinogen (Normal) mg/dL Ur Leukocyte Esterase (Negative) Urine Microscopic RBC (0-3) per hpf Urine Microscopic WBC (0-3) per hpf Ur Squamous Epith Cells (None-Few) per lpf Urine Bacteria (None-Few) per hpf Hyaline Casts (None-Few) per lpf Urine Yeast (None Seen) per hpf Ur Culture Indicated? (NO) Urine Test (Negative) Jane species DNA (Not Detect) Gardnerella DNA Probe (Not Detect) Trichomonas DNA Probe (Not Detect) Specimen Rejected 11/27/17 11/27/17 11/27/17 Range/Units 14:34 14:34 16:21 WBC 4.6 (4.3-11.1) K/mcL RBC 3.62 L (3.82-4.97) M/mcL Hgb 10.7 L (11.5-15.4) g/dL Hct 32.3 L (35.3-44.9) % MCV 89.2 (83.0-100.0) fL MCH 29.6 (28.0-33.3) pg MCHC 33.1 (31.6-35.5) g/dL RDW 13.1 (11.5-14.5) % Plt Count 129 L (140-400) K/mcL MPV 11.4 (9.4-12.4) fL Immature Gran % 0.2 (0-4) % Seg Neutrophils % 81.8 % Lymphocytes % 12.5 % Monocytes % 4.8 % Eosinophils % 0.0 % Basophils % 0.7 % Neutrophils # 3.7 (1.6-8.9) K/mcL Lymphocytes # 0.6 (0.6-4.6) K/mcL Monocytes # 0.2 (0.0-1.3) K/mcL Eosinophils # 0.0 (0.0-0.6) K/mcL Basophils # 0.0 (0.0-0.2) K/mcL Sodium Cancelled Potassium Cancelled Chloride Cancelled Carbon Dioxide Cancelled BUN Cancelled Creatinine Cancelled Est GFR ( Amer) Cancelled Est GFR (Non-Af Amer) Cancelled BUN/Creatinine Ratio Cancelled Glucose Cancelled POC Glucose (70-99) mg/dL Calculated Osmolality Cancelled Lactic Acid (0.5-2.2) mmol/L Calcium Cancelled Phosphorus Cancelled Magnesium Cancelled Total Bilirubin Cancelled Direct Bilirubin Cancelled Indirect Bilirubin Cancelled AST Cancelled ALT Cancelled Alkaline Phosphatase Cancelled Troponin I 0.04 H* (< 0.04) ng/mL Serum Total Protein Cancelled Albumin Cancelled Globulin Cancelled Albumin/Globulin Ratio Cancelled Urine Color Yellow (Yellow) Urine Clarity Cloudy A (Clear) Urine pH 7.5 (5.0-8.0) pH Units Ur Specific [place] 1.013 (1.010-1.025) Urine Protein Negative (Neg-Trace) mg/dL Urine Glucose (UA) >=1000 H (Normal) mg/dL Urine Ketones Negative (Negative) mg/dL Urine Blood Negative (Negative) Urine Nitrite Negative (Negative) Urine Bilirubin Negative (Negative) Urine Urobilinogen Normal (Normal) mg/dL Ur Leukocyte Esterase Moderate H (Negative) Urine Microscopic RBC 0-3 (0-3) per hpf Urine Microscopic WBC 30-50 H (0-3) per hpf Ur Squamous Epith Cells Many H (None-Few) per lpf Urine Bacteria None Seen (None-Few) per hpf Hyaline Casts None Seen (None-Few) per lpf Urine Yeast Few H (None Seen) per hpf Ur Culture Indicated? NO. (NO) Urine Test (Negative) Jane species DNA (Not Detect) Gardnerella DNA Probe (Not Detect) Trichomonas DNA Probe (Not Detect) Specimen Rejected 11/27/17 11/27/17 11/27/17 Range/Units 16:21 16:39 16:51 WBC (4.3-11.1) K/mcL RBC (3.82-4.97) M/mcL Hgb (11.5-15.4) g/dL Hct (35.3-44.9) % MCV (83.0-100.0) fL MCH (28.0-33.3) pg MCHC (31.6-35.5) g/dL RDW (11.5-14.5) % Plt Count (140-400) K/mcL MPV (9.4-12.4) fL Immature Gran % (0-4) % Seg Neutrophils % % Lymphocytes % % Monocytes % % Eosinophils % % Basophils % % Neutrophils # (1.6-8.9) K/mcL Lymphocytes # (0.6-4.6) K/mcL Monocytes # (0.0-1.3) K/mcL Eosinophils # (0.0-0.6) K/mcL Basophils # (0.0-0.2) K/mcL Sodium Potassium Chloride Carbon Dioxide BUN Creatinine Est GFR ( Amer) Est GFR (Non-Af Amer) BUN/Creatinine Ratio Glucose POC Glucose (70-99) mg/dL Calculated Osmolality Lactic Acid 2.7 H (0.5-2.2) mmol/L Calcium Phosphorus Magnesium Total Bilirubin Direct Bilirubin Indirect Bilirubin AST ALT Alkaline Phosphatase Troponin I (< 0.04) ng/mL Serum Total Protein Albumin Globulin Albumin/Globulin Ratio Urine Color (Yellow) Urine Clarity (Clear) Urine pH (5.0-8.0) pH Units Ur Specific [place] (1.010-1.025) Urine Protein (Neg-Trace) mg/dL Urine Glucose (UA) (Normal) mg/dL Urine Ketones (Negative) mg/dL Urine Blood (Negative) Urine Nitrite (Negative) Urine Bilirubin (Negative) Urine Urobilinogen (Normal) mg/dL Ur Leukocyte Esterase (Negative) Urine Microscopic RBC (0-3) per hpf Urine Microscopic WBC (0-3) per hpf Ur Squamous Epith Cells (None-Few) per lpf Urine Bacteria (None-Few) per hpf Hyaline Casts (None-Few) per lpf Urine Yeast (None Seen) per hpf Ur Culture Indicated? (NO) Urine Test Negative (Negative) Jane species DNA DETECTED A (Not Detect) Gardnerella DNA Probe DETECTED A (Not Detect) Trichomonas DNA Probe Not Detected (Not Detect) Specimen Rejected 11/27/17 11/27/17 11/27/17 Range/Units 16:51 17:17 17:59 WBC (4.3-11.1) K/mcL RBC (3.82-4.97) M/mcL Hgb (11.5-15.4) g/dL Hct (35.3-44.9) % MCV (83.0-100.0) fL MCH (28.0-33.3) pg MCHC (31.6-35.5) g/dL RDW (11.5-14.5) % Plt Count (140-400) K/mcL MPV (9.4-12.4) fL Immature Gran % (0-4) % Seg Neutrophils % % Lymphocytes % % Monocytes % % Eosinophils % % Basophils % % Neutrophils # (1.6-8.9) K/mcL Lymphocytes # (0.6-4.6) K/mcL Monocytes # (0.0-1.3) K/mcL Eosinophils # (0.0-0.6) K/mcL Basophils # (0.0-0.2) K/mcL Sodium 135 L Potassium 4.1 Chloride 100 Carbon Dioxide 25 BUN 43 H Creatinine 1.64 H Est GFR ( Amer) 40 L Est GFR (Non-Af Amer) 33 L BUN/Creatinine Ratio 26 Glucose 482 H POC Glucose 450 H* (70-99) mg/dL Calculated Osmolality 312 H Lactic Acid (0.5-2.2) mmol/L Calcium 9.2 Phosphorus 1.8 L Magnesium 1.3 L Total Bilirubin 0.3 Direct Bilirubin 0.1 Indirect Bilirubin 0.2 AST 65 H ALT 42 Alkaline Phosphatase 181 H Troponin I (< 0.04) ng/mL Serum Total Protein 7.3 Albumin 3.9 Globulin 3.4 Albumin/Globulin Ratio 1.1 Urine Color (Yellow) Urine Clarity (Clear) Urine pH (5.0-8.0) pH Units Ur Specific [place] (1.010-1.025) Urine Protein (Neg-Trace) mg/dL Urine Glucose (UA) (Normal) mg/dL Urine Ketones (Negative) mg/dL Urine Blood (Negative) Urine Nitrite (Negative) Urine Bilirubin (Negative) Urine Urobilinogen (Normal) mg/dL Ur Leukocyte Esterase (Negative) Urine Microscopic RBC (0-3) per hpf Urine Microscopic WBC (0-3) per hpf Ur Squamous Epith Cells (None-Few) per lpf Urine Bacteria (None-Few) per hpf Hyaline Casts (None-Few) per lpf Urine Yeast (None Seen) per hpf Ur Culture Indicated? (NO) Urine Test (Negative) Jane species DNA (Not Detect) Gardnerella DNA Probe (Not Detect) Trichomonas DNA Probe (Not Detect) Specimen Rejected Hemolyzed 11/27/17 Range/Units 18:00 WBC (4.3-11.1) K/mcL RBC (3.82-4.97) M/mcL Hgb (11.5-15.4) g/dL Hct (35.3-44.9) % MCV (83.0-100.0) fL MCH (28.0-33.3) pg MCHC (31.6-35.5) g/dL RDW (11.5-14.5) % Plt Count (140-400) K/mcL MPV (9.4-12.4) fL Immature Gran % (0-4) % Seg Neutrophils % % Lymphocytes % % Monocytes % % Eosinophils % % Basophils % % Neutrophils # (1.6-8.9) K/mcL Lymphocytes # (0.6-4.6) K/mcL Monocytes # (0.0-1.3) K/mcL Eosinophils # (0.0-0.6) K/mcL Basophils # (0.0-0.2) K/mcL Sodium Potassium Chloride Carbon Dioxide BUN Creatinine Est GFR ( Amer) Est GFR (Non-Af Amer) BUN/Creatinine Ratio Glucose POC Glucose 526 H* (70-99) mg/dL Calculated Osmolality Lactic Acid (0.5-2.2) mmol/L Calcium Phosphorus Magnesium Total Bilirubin Direct Bilirubin Indirect Bilirubin AST ALT Alkaline Phosphatase Troponin I (< 0.04) ng/mL Serum Total Protein Albumin Globulin Albumin/Globulin Ratio Urine Color (Yellow) Urine Clarity (Clear) Urine pH (5.0-8.0) pH Units Ur Specific [place] (1.010-1.025) Urine Protein (Neg-Trace) mg/dL Urine Glucose (UA) (Normal) mg/dL Urine Ketones (Negative) mg/dL Urine Blood (Negative) Urine Nitrite (Negative) Urine Bilirubin (Negative) Urine Urobilinogen (Normal) mg/dL Ur Leukocyte Esterase (Negative) Urine Microscopic RBC (0-3) per hpf Urine Microscopic WBC (0-3) per hpf Ur Squamous Epith Cells (None-Few) per lpf Urine Bacteria (None-Few) per hpf Hyaline Casts (None-Few) per lpf Urine Yeast (None Seen) per hpf Ur Culture Indicated? (NO) Urine Test (Negative) Jane species DNA (Not Detect) Gardnerella DNA Probe (Not Detect) Trichomonas DNA Probe (Not Detect) Specimen Rejected
[2017-11-27] MEDS ORDERED: 0.9 % Sodium Chloride 1,000 ML IVC ONE (14:33)
[2017-11-27 16:32] LABS: Basophils % 0.7 %; Hematocrit 32.3 % (35.3-44.9); Hemoglobin 10.7 g/dL (11.5-15.4); Immature Granulocytes % 0.2 % (0-4); Lymphocytes # 0.6 K/mcL (0.6-4.6); Lymphocytes % 12.5 %; Mean Corpuscular HGB Conc 33.1 g/dL (31.6-35.5); Mean Corpuscular Hemoglobin 29.6 pg (28.0-33.3); Mean Corpuscular Volume 89.2 fL (83.0-100.0); Mean Platelet Volume 11.4 fL (9.4-12.4); Monocytes # 0.2 K/mcL (0.0-1.3); Monocytes % 4.8 %; Neutrophils # 3.7 K/mcL (1.6-8.9); Platelet Count 129 K/mcL (140-400); Red Blood Count 3.62 M/mcL (3.82-4.97); Red Cell Distribution Width 13.1 % (11.5-14.5); Segmented Neutrophils % 81.8 %
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
[2017-11-27 16:49] LABS: Bilirubin,Urine Negative (Negative); Blood,Urine Negative (Negative); Clarity,Urine Cloudy (Clear); Color,Urine Yellow (Yellow); Glucose,Urine (UA) >=1000 mg/dL (Normal); Ketones,Urine Negative (Negative); Leukocyte Esterase,Urine Moderate (Negative); Nitrite,Urine Negative (Negative); PH,Urine 7.5 pH Units (5.0-8.0); Protein,Urine Negative (Neg-Trace); Specific Gravity,Urine 1.013 (1.010-1.025); Urobilinogen,Urine Normal (Normal)
[2017-11-27 16:52] LABS: Bacteria,Urine None Seen per hpf (None-Few); Hyaline Casts,Urine None Seen per lpf (None-Few); RBC,Urine 0-3 per hpf (0-3); Squamous Epithelial Cell,Urine Many per lpf (None-Few); WBC,Urine 30-50 per hpf (0-3)
[2017-11-27 17:09] LABS: Yeast,Urine Few per hpf (None Seen)
[2017-11-27 17:48] LABS: Albumin 3.9 g/dL (3.5-5.7); Albumin/Globulin Ratio 1.1 (1.1-2.2); Bilirubin,Direct 0.1 mg/dL (0.0-0.2); Bilirubin,Indirect 0.2 mg/dL (0.0-1.2); Bilirubin,Total 0.3 mg/dL (0.3-1.0); Calcium 9.2 mg/dL (8.6-10.3); Globulin 3.4 g/dL (2.4-3.5); Magnesium 1.3 mg/dL (1.6-2.6); Phosphorous 1.8 mg/dL (2.7-4.5); Potassium 4.1 mEq/L (3.5-5.1); Total Protein 7.3 g/dL (6.4-8.9)
[2017-11-27] MEDS ORDERED: cefTRIAXone 1,000 MG in Water for inj. (sterile) 20 ML 10 ML IVP ONE (17:57)
[2017-11-27] MEDS ORDERED: Insulin Regular, Human 100 UNIT/ML SQ ONE ×2 (18:05→21:00)
[2017-11-27 18:06] LABS: Candida DNA ***DETECTED*** (Not Detect); Gardnerella DNA ***DETECTED*** (Not Detect); Trichomonas DNA Not Detected (Not Detect)
[2017-11-27] MEDS ORDERED: metroNIDAZOLE 500 MG TABLET PO ONE ×2 (18:28→18:29)
[2017-11-27] MEDS ORDERED: SODIUM CHLORIDE 0.9% IVPB ONE (18:30)
[2017-11-27] MEDS ORDERED: GENTAMICIN IVPB ONE (18:30)
[2017-11-27] MEDS ORDERED: Dextrose Gel 15 GM/37.5 ML TUBE PO PRN ×2 (21:00)
[2017-11-27] MEDS ORDERED: *HR* Dextrose 50 % in Water (Syg) 50 ML SYRINGE IVP PRN (21:00)
[2017-11-27] MEDS ORDERED: D5% in Water 1,000 ML IVC PRN (21:00)
[2017-11-27] MEDS ORDERED: Insulin LISPRO 300 UNITS/3 ML VIAL SQ SCH (21:01)
[2017-11-27] MEDS ORDERED: Naloxone 0.4 MG/ML INJ IVP PRN (21:53)
[2017-11-27] MEDS ORDERED: Acetaminophen 325 MG TABLET PO PRN (21:53)
[2017-11-27] MEDS ORDERED: 0.9 % Sodium Chloride 1,000 ML IVC SCH (22:00)
[2017-11-27] MEDS ORDERED: Doxycycline 100 MG in 0.9 % Sodium Chloride Mini Bag 100 ML IVPB SCH (22:02)
[2017-11-27] MEDS ORDERED: OXcarbazepine 150 MG TABLET PO SCH (22:15)
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
[2017-11-27] MEDS: Insulin DETEMIR 100 UNIT/ML X5UNITS SQ SCH (23:15)
[2017-11-27] MEDS: Artificial Tears SOLN 15 ML BOTTLE OP SCH (23:15)
[2017-11-28 00:17] LABS: Amphetamine Screen,Urine Negative ng/mL (Cutoff=1000); Barbiturate Screen,Urine Negative ng/mL (Cutoff=200); Benzodiazepines Screen,Urine Negative ng/mL (Cutoff=200); Cannabinoid Screen,Urine Negative ng/mL (Cutoff = 50); Cocaine Screen,Urine Positive ng/mL (Cutoff= 300); Opiate Screen,Urine Negative ng/mL (Cutoff=300); Phencyclidine Screen,Urine Negative ng/mL (Cutoff=25)
[2017-11-28 01:40] LABS: Activated Partial Thrombo Time 31.6 Seconds (26.0-36.0)
[2017-11-28] MEDS ORDERED: D5% in 0.9% NACL 1,000 ML IVC SCH (02:45)
[2017-11-28 04:14] LABS: Basophils # 0.1 K/mcL (0.0-0.2); Basophils % 0.8 %; Eosinophils % 0.6 %; Hematocrit 31.6 % (35.3-44.9); Hemoglobin 10.3 g/dL (11.5-15.4); Immature Granulocytes % 0.3 % (0-4); Lymphocytes # 1.1 K/mcL (0.6-4.6); Lymphocytes % 17.4 %; Mean Corpuscular HGB Conc 32.6 g/dL (31.6-35.5); Mean Corpuscular Hemoglobin 29.6 pg (28.0-33.3); Mean Corpuscular Volume 90.8 fL (83.0-100.0); Monocytes # 0.5 K/mcL (0.0-1.3); Monocytes % 7.8 %; Neutrophils # 4.5 K/mcL (1.6-8.9); Platelet Count 271 K/mcL (140-400); Red Blood Count 3.48 M/mcL (3.82-4.97); Red Cell Distribution Width 13.2 % (11.5-14.5); Segmented Neutrophils % 73.1 %
[2017-11-28] MEDS: MetroNIDAZOLE 500 MG/100 ML 500 MG/100 ML BAG IVPB SCH ×2 (04:17→08:18)
[2017-11-28 04:33] LABS: Albumin 3.9 g/dL (3.5-5.7); Albumin/Globulin Ratio 1.1 (1.1-2.2); Bilirubin,Total 0.3 mg/dL (0.3-1.0); Calcium 9.3 mg/dL (8.6-10.3); Globulin 3.5 g/dL (2.4-3.5); Magnesium 1.5 mg/dL (1.6-2.6); Potassium 3.9 mEq/L (3.5-5.1); Total Protein 7.4 g/dL (6.4-8.9)
[2017-11-28] MEDS: *HR* Heparin 5,000 UNIT/ML VIAL SQ SCH ×2 (05:55→17:32)
[2017-11-28] MEDS ORDERED: Insulin LISPRO 300 UNITS/3 ML VIAL SQ SCH ×2 (07:30→21:00)
[2017-11-28] MEDS: Multivit/Ca/Min/Fe/FA 1 TAB TABLET PO SCH (08:17)
[2017-11-28] MEDS: lamoTRIgine 25 MG TABLET PO SCH ×3 (08:18→20:24)
[2017-11-28] MEDS: Insulin DETEMIR 100 UNIT/ML X5UNITS SQ SCH ×2 (08:18→20:26)
--- NOTE | 2017-11-28 10:22 | Internal Med Progress Note ---
<Sandy Rhodes - Last Filed: 11/28/17 14:59> Date of Encounter: 11/28/17 Time of Encounter: 10:21 - Assessment and plan (1) Sepsis Current Visit: Yes Status: Suspected Assessment and plan: Resolved Concern for possible sepsis at admission, Temperature 92F. WBC WNL, HR normal. Lactic acid 2.0 (2.7) Also consider secondary to hypoglycemia and/or illicit drug use. -Urinalysis growing leukocyte esterase and yeast -11/27/2017 blood cultures growing GPC -serology containing diana, gardnerella, Staphylococcus -repeat blood cultures and a.m. -continue PO doxycycline day 2 -continue Flagyl day 1 -start vancomycin pharmacy to dose -will give a one time dose of Diflucan for yeast in urine -consult infectious disease, recommendations appreciated -per history of IV drug use will test for HIV Qualifiers: Sepsis type: sepsis due to unspecified organism Qualified Code(s): A41.9 - Sepsis, unspecified organism (2) UTI (urinary tract infection) Current Visit: Yes Status: Acute Assessment and plan: Urinalysis demonstrated leukocyte esterase and yeast. -11/11/2017 urine culture grew S. Aureus -Patient received antibiotics in ER before urine culture collected. Plan -continue PO Doxycylcline based upon last culture results -will give a one time dose of Diflucan for yeast in urine -urine culture pending Qualifiers: Urinary tract infection type: acute cystitis Hematuria presence: without hematuria Qualified Code(s): N30.00 - Acute cystitis without hematuria (3) Hypoglycemia Current Visit: Yes Status: Acute Assessment and plan: Resolved. Likely secondary to not eating. Patient reported that she has been eating less to lose weight. Illicit drug use [place] contributed. -Will continue basal and SSI insulin, Accu checks, diabetic diet (4) Gardnerella vaginitis Current Visit: Yes Status: Acute Assessment and plan: Positive for Gardnerella vaginitis -continue Flagyl day 1 (5) Hypothermia Current Visit: Yes Status: Resolved Assessment and plan: Hypothermia resolved. May has been due to illicit drug use and hypoglycemia. Qualifiers: Encounter type: initial encounter Qualified Code(s): T68.XXXA - Hypothermia , initial encounter (6) Diabetes Current Visit: Yes Status: Chronic Assessment and plan: History of known diabetes on insulin. She reports variable eating due to wanting to lose weight. -see plan above Qualifiers: Diabetes mellitus type: type 1 Diabetes mellitus complication status: without complication Qualified Code(s): E10.9 - Type 1 diabetes mellitus without complications (7) Stage 3 chronic kidney disease due to type 2 diabetes mellitus Current Visit: No Status: Chronic Assessment and plan: She has a history of CKD stage III creatinine 1.55, is currently at baseline -will continue to monitor renal function, avoid nephrotoxic agents (8) IV drug abuse Current Visit: Yes Status: Acute Assessment and plan: She reported a history of IV drug abuse. She reported IV drug use for many years for which she was clean for 7 years and then most recently in August 2017 was the last time she used IV drugs. (9) Crack cocaine use Current Visit: Yes Status: Acute Assessment and plan: She currently uses crack cocaine. She was advised to quit. (10) DVT prophylaxis Current Visit: No Status: Acute Assessment and plan: Heparin SQ (11) Bacteremia Current Visit: Yes Status: Acute Assessment and plan: 11/27/2017 blood cultures growing GPC history of IVDU She does not currently meet Nelson criteria for endocarditis -Order echocardiogram to evaluate for valvular vegetations -start IV vancomycin -consult infectious disease, appreciate recommendations - Time Spent With Patient Total time spent is greater than 50% in coordination of care (as documented) at patient's floor/unit and/or counseling patient: - Subjective Interval history: Sitting up comfortably in bed. She reports only suprapubic tenderness. She denies fever, chills, nausea, chest pain, shortness of breath, dysuria, hematuria. Her only complaints at this time are the blood draws. - Constitutional Vitals: Temp Pulse Resp BP Pulse Ox 97.7 F 93 15 102/63 99 11/28/17 06:51 11/28/17 06:51 11/28/17 06:51 11/28/17 06:51 11/28/17 06:51 General appearance: Present: cooperative, A&O X 3, pleasant, no acute distress, answers questions appropriately Exam: Gen.: Vitals noted. No acute distress. AAOx3 HEENT: oropharynx clear, Normocephalic, atraumatic Neck: Supple. No adenopathy. Cardiac: RRR, no murmur, +S1/S2 Pulmonary: CTA bilaterally, no wheezes, rales or rhonchi, equal chest expansion Abdomen: soft, nontender, Bowel sounds noted, no guarding MSK: ROM intact, no joint swelling noted Extremities: no BLE edema, nontender calf, no cyanosis or clubbing Neuro: A&Ox3, moves all extremities, no focal deficits Psych: Appropriate mood and behavior Internal Medicine: Result - Labs CBC & Chem 7: 11/28/17 04:01 11/28/17 04:01 Labs: Short CBC 11/28/17 Range/Units 04:01 WBC 6.2 (4.3-11.1) K/mcL Hgb 10.3 L (11.5-15.4) g/dL Hct 31.6 L (35.3-44.9) % Plt Count 271 D (140-400) K/mcL Neutrophils # 4.5 (1.6-8.9) K/mcL BMP 11/28/17 04:01 Sodium 138 Potassium 3.9 Chloride 103 Carbon Dioxide 23 BUN 40 H Creatinine 1.55 H Glucose 215 H Calcium 9.3 Cardiac Enzymes 11/28/17 11/28/17 Range/Units 00:50 04:01 Troponin I 0.04 H* 0.05 H* (< 0.04) ng/mL Liver Function 11/28/17 Range/Units 04:01 Total Bilirubin 0.3 (0.3-1.0) mg/dL AST 58 H (13-39) Units/L ALT 40 (7-52) Units/L Alkaline Phosphatase 159 H (34-104) Units/L Albumin 3.9 (3.5-5.7) g/dL - ABG Interpretation ABG results: PT/INR, D-dimer PT 11.0 Seconds (9.4-12.1) 11/28/17 00:50 Consult Discharge Plan - Plan Referrals: Tanner Renteria, PAC [Primary Care Provider] - <Duran Kaiser - Last Filed: 11/28/17 16:44> Date of Encounter: 11/28/17 - Assessment and plan (1) DVT prophylaxis Current Visit: No Status: Acute (2) Stage 3 chronic kidney disease due to type 2 diabetes mellitus Current Visit: No Status: Chronic (3) UTI (urinary tract infection) Current Visit: Yes Status: Acute Qualifiers: Urinary tract infection type: acute cystitis Hematuria presence: without hematuria Qualified Code(s): N30.00 - Acute cystitis without hematuria (4) Diabetes Current Visit: Yes Status: Chronic Qualifiers: Diabetes mellitus type: type 1 Diabetes mellitus complication status: without complication Qualified Code(s): E10.9 - Type 1 diabetes mellitus without complications (5) Crack cocaine use Current Visit: Yes Status: Acute (6) Hypoglycemia Current Visit: Yes Status: Acute (7) Sepsis Current Visit: Yes Status: Suspected Qualifiers: Sepsis type: sepsis due to unspecified organism Qualified Code(s): A41.9 - Sepsis, unspecified organism (8) Hypothermia Current Visit: Yes Status: Resolved Qualifiers: Encounter type: initial encounter Qualified Code(s): T68.XXXA - Hypothermia , initial encounter (9) Gardnerella vaginitis Current Visit: Yes Status: Acute (10) IV drug abuse Current Visit: Yes Status: Acute (11) Bacteremia Current Visit: Yes Status: Acute - Time Spent With Patient Total time spent is greater than 50% in coordination of care (as documented) at patient's floor/unit and/or counseling patient: - Constitutional Vitals: Temp Pulse Resp BP Pulse Ox 98.1 F 77 15 115/72 98 11/28/17 14:46 11/28/17 14:46 11/28/17 14:46 11/28/17 14:46 11/28/17 14:46 Internal Medicine: Result - Labs CBC & Chem 7: 11/28/17 04:01 11/28/17 04:01 Labs: Short CBC 11/28/17 Range/Units 04:01 WBC 6.2 (4.3-11.1) K/mcL Hgb 10.3 L (11.5-15.4) g/dL Hct 31.6 L (35.3-44.9) % Plt Count 271 D (140-400) K/mcL Neutrophils # 4.5 (1.6-8.9) K/mcL BMP 11/28/17 04:01 Sodium 138 Potassium 3.9 Chloride 103 Carbon Dioxide 23 BUN 40 H Creatinine 1.55 H Glucose 215 H Calcium 9.3 Cardiac Enzymes 11/28/17 11/28/17 11/28/17 Range/Units 00:50 04:01 09:59 Troponin I 0.04 H* 0.05 H* < 0.03 (< 0.04) ng/mL Liver Function 04/17/18 Range/Units 04:01 Total Bilirubin 0.3 (0.3-1.0) mg/dL AST 58 H (13-39) Units/L ALT 40 (7-52) Units/L Alkaline Phosphatase 159 H (34-104) Units/L Albumin 3.9 (3.5-5.7) g/dL - ABG Interpretation ABG results: PT/INR, D-dimer PT 11.0 Seconds (9.4-12.1) 11/28/17 00:50 - Attending Attestation I examined this patient and my medical decision-making was reviewed with the Resident Physician Dr. Rhodes. I agree with the documented findings, disposition and treatment plan as described except to the extent set forth below. This is 52 y/o F [place] IVDA pt admitted with hypothermia, hypoglycemia and concern for sepsis. She does have yeast in urine . Pt states she is feeling better and wants to go home today. Gen: A, A, O x3 Chest: Diminished BS b/l Abd Soft, NT, BS Heart: S1S2+ RRR a/p 1. Sepsis 2. Severe hypoglycemia and hypothermia 3. Cocaine dependence 4. IVDA Blood cx growing staph concern for endocarditis no clear source of inf yet changed abx to Vanc ID consulted 2 D Echo ordered repeat blood cx in Am 5. UTI 6. Gardenlla vaginitis Diflucan x 1 dose PO Flagyl
--- NOTE | 2017-11-28 11:35 | Electrocardiograph Report ---
[employer] Test Date: 2017-11-27 Pat Name: Gracie Kuhn Department: 102 Room: 3A13 Gender: F Nsh Teacher: : 1965 Requested By: Melida See Order Number: [id number] Reading MD: Ari Stewart Measurements Intervals Errol Rate: 62 P: NM: 0 QRS: 32 QRSD: 97 T: 67 QT: 490 QTc: 495 Interpretive Statements SUPRAVENTRICULAR RHYTHM PROLONGED QT INTERVAL baseline artifact Electronically Signed On 11-28-2017 11:33:41 EDT by Ari Stewart
[2017-11-28 12:46] LABS: Enterococcus by PCR Not Detected (Not Detect); Staphylococcus aureus by PCR Not Detected (Not Detect); Streptococcus agalactiae(B)PCR Not Detected (Not Detect); Streptococcus by PCR Not Detected (Not Detect); Streptococcus pneumoniae PCR Not Detected (Not Detect); blaKPC Carbapenem-Resist Gene Not Detected (Not Detect); mecA Methicillin-Resist Gene Not Detected (Not Detect); vanA/B Vancomycin-Resist Genes Not Detected (Not Detect)
[2017-11-28 12:47] LABS: Acinetobacter baumannii by PCR Not Detected (Not Detect); Candida albicans by PCR Not Detected (Not Detect); Candida glabrata by PCR Not Detected (Not Detect); Candida krusei by PCR Not Detected (Not Detect); Candida parapsilosis by PCR Not Detected (Not Detect); Candida tropicalis by PCR Not Detected (Not Detect); Escherichia coli by PCR Not Detected (Not Detect); Klebsiella oxytoca by PCR Not Detected (Not Detect); Klebsiella pneumoniae by PCR Not Detected (Not Detect); Pseudomonas aeruginosa by PCR Not Detected (Not Detect); Serratia marcescens by PCR Not Detected (Not Detect); Streptococcus pyogenes (A) PCR Not Detected (Not Detect)
[2017-11-28] MEDS: OXcarbazepine 150 MG TABLET PO SCH ×2 (13:06→20:25)
[2017-11-28] MEDS: hydrOXYzine pamoate 25 MG CAPSULE PO SCH ×2 (13:06→20:24)
[2017-11-28] MEDS: Insulin LISPRO 300 UNITS/3 ML VIAL SQ SCH ×2 (13:06→17:31)
[2017-11-28] MEDS ORDERED: Doxycycline 100 MG in 0.9 % Sodium Chloride Mini Bag 100 ML IVPB SCH (16:00)
[2017-11-28] MEDS: Fluconazole 100 MG TABLET PO SCH (16:10)
[2017-11-28] MEDS: metroNIDAZOLE 500 MG TABLET PO SCH ×2 (16:11→20:24)
[2017-11-28] MEDS: Vancomycin 500 MG in 0.9 % Sodium Chloride Mini Bag 100 ML IVPB SCH (16:11)
[2017-11-28] MEDS: Doxycycline 100 MG CAPSULE PO SCH (20:24)
[2017-11-28] MEDS: Artificial Tears SOLN 15 ML BOTTLE OP SCH (23:25)
[2017-11-29] MEDS ORDERED: Insulin LISPRO 300 UNITS/3 ML VIAL SQ SCH ×3 (03:27→21:00)
[2017-11-29 05:53] LABS: Basophils # 0.1 K/mcL (0.0-0.2); Basophils % 1.1 %; Eosinophils # 0.2 K/mcL (0.0-0.6); Eosinophils % 3.8 %; Hematocrit 30.9 % (35.3-44.9); Immature Granulocytes % 0.2 % (0-4); Lymphocytes # 1.6 K/mcL (0.6-4.6); Lymphocytes % 34.7 %; Mean Corpuscular HGB Conc 32.4 g/dL (31.6-35.5); Mean Corpuscular Hemoglobin 28.8 pg (28.0-33.3); Mean Platelet Volume 9.6 fL (9.4-12.4); Monocytes # 0.4 K/mcL (0.0-1.3); Monocytes % 7.6 %; Neutrophils # 2.5 K/mcL (1.6-8.9); Platelet Count 274 K/mcL (140-400); Red Blood Count 3.47 M/mcL (3.82-4.97); Red Cell Distribution Width 13.4 % (11.5-14.5); Segmented Neutrophils % 52.6 %
[2017-11-29 06:12] LABS: Calcium 9.7 mg/dL (8.6-10.3); Potassium 4.6 mEq/L (3.5-5.1)
[2017-11-29] MEDS: *HR* Heparin 5,000 UNIT/ML VIAL SQ SCH (06:16)
[2017-11-29] MEDS: metroNIDAZOLE 500 MG TABLET PO SCH ×2 (09:33→15:39)
[2017-11-29] MEDS: OXcarbazepine 150 MG TABLET PO SCH (09:33)
[2017-11-29] MEDS: Insulin DETEMIR 100 UNIT/ML X5UNITS SQ SCH (09:33)
[2017-11-29] MEDS: Doxycycline 100 MG CAPSULE PO SCH (09:33)
[2017-11-29] MEDS: lamoTRIgine 25 MG TABLET PO SCH (09:33)
[2017-11-29] MEDS: Fluconazole 100 MG TABLET PO SCH (09:34)
[2017-11-29] MEDS: Multivit/Ca/Min/Fe/FA 1 TAB TABLET PO SCH (09:34)
[2017-11-29] MEDS: Insulin LISPRO 300 UNITS/3 ML VIAL SQ SCH ×2 (09:34→12:14)
[2017-11-29] MEDS: hydrOXYzine pamoate 25 MG CAPSULE PO SCH (09:34)
--- NOTE | 2017-11-29 11:28 | Internal Med Progress Note ---
Date of Encounter: 11/29/17 Time of Encounter: 08:30 - Assessment and plan (1) Sepsis Current Visit: Yes Status: Suspected Assessment and plan: Resolved Concern for possible sepsis at admission, Temperature 92F. WBC WNL, HR normal. Lactic acid 2.0 (2.7) Also consider secondary to hypoglycemia and/or illicit drug use. -Urinalysis growing G+ cocci; awaiting final report. Does have history of MSSA UTI. -11/27/2017 blood cultures growing G+ cocci -serology demonstrated diana, gardnerella, Staphylococcus -BCs recollected this AM and results are pending; will need to correlate BC findings with Urine Cx -cont IV Vanco until further culture data becomes available -d/c Doxy for now as patient is on Vanco IV -continue Flagyl day 2 -pt was given diflucan for diana -HIV test pending -consult infectious disease, awaiting recommendations Qualifiers: Sepsis type: sepsis due to unspecified organism Qualified Code(s): A41.9 - Sepsis, unspecified organism (2) Hypoglycemia Current Visit: Yes Status: Acute Assessment and plan: Likely primary factor for presenting condition and admission; pt has had episodic hypoglycemia on IP basis -- SSI customized to higher treatment threshold with Low-dose scale -- cont FSBG and ADA Diet; will strongly consider D/C Detemir if continues to have episodic hypoglycemia (3) Hypothermia Current Visit: Yes Status: Resolved Assessment and plan: Resolved; illicit drug use vs hypoglycemia as contributing factor. -- if continues to be a concern, may evaluate thyroid function Qualifiers: Encounter type: initial encounter Qualified Code(s): T68.XXXA - Hypothermia , initial encounter (4) Diabetes Current Visit: Yes Status: Chronic Assessment and plan: Known h/o diabetes on insulin; last A1c was 9.5%. All plans as above. Qualifiers: Diabetes mellitus type: type 1 Diabetes mellitus complication status: without complication Qualified Code(s): E10.9 - Type 1 diabetes mellitus without complications (5) Stage 3 chronic kidney disease due to type 2 diabetes mellitus Current Visit: No Status: Chronic Assessment and plan: She has a history of CKD stage III currently at baseline. -will continue to monitor renal function, avoid nephrotoxic agents (6) Bacteremia Current Visit: Yes Status: Acute Assessment and plan: 11/27/2017 blood cultures growing GPC history of IVDU and MSSA UTI She does not currently meet [place] criteria for endocarditis -repeated BC this AM; results pending -Order echocardiogram to evaluate for valvular vegetations; pending. -start IV vancomycin; continue until culture/sensitivity results come back. -consult infectious disease, appreciate recommendations -may need to consult urology depending on results of culture, i.e., whether Urine and Blood cultures coincide (7) IV drug abuse Current Visit: Yes Status: Acute Assessment and plan: She reported a history of IV drug abuse. She reported IV drug use for many years for which she was clean for 7 years and then most recently in August 2017 was the last time she used IV drugs. Plans as above. (8) UTI (urinary tract infection) Current Visit: Yes Status: Acute Assessment and plan: Urinalysis demonstrated leukocyte esterase and yeast; culture so far shows non- MRSA staph -11/11/2017 urine culture grew S. Aureus (virtually [place]-sensitive) -Patient received antibiotics in ER before urine culture collected. Plan -currently treating with IV Vanco & Flagyl; discontinued Doxy and Diflucan Qualifiers: Urinary tract infection type: acute cystitis Hematuria presence: without hematuria Qualified Code(s): N30.00 - Acute cystitis without hematuria (9) Gardnerella vaginitis Current Visit: Yes Status: Acute Assessment and plan: Positive for Gardnerella vaginitis -continue Flagyl day 2 (10) DVT prophylaxis Current Visit: No Status: Acute Assessment and plan: Heparin SQ - Time Spent With Patient Total time spent is greater than 50% in coordination of care (as documented) at patient's floor/unit and/or counseling patient: - Subjective Interval history: States feels fine this AM with no acute complaints and inquires as to when she will be discharged. She understands that several items of work up are pending which may delay discharge. Was hypoglycemic overnight with FSBG of 37. She was on Detemir 10U HS & LD-SSI ; customized LD-SSI to have same scale, but higher treatment threshold due to episodic hypoglycemia. New BCs pending and pt was transitioned to IV Vanco from Doxy for G+c on previous BCs. Was also staph positive in Urine Cx. Does have history of MSSA UTI. Will need to determine whether bacteremia is attributable to urine findings or possibly contaminant/incidental. Pt does have h/o IVDU, but [facility] has not used since August 2017. - Constitutional Vitals: Temp Pulse Resp BP Pulse Ox 97.3 F L 75 16 107/63 98 11/29/17 11:10 11/29/17 11:10 11/29/17 11:10 11/29/17 11:10 11/29/17 11:10 General appearance: Present: cooperative, A&O X 3, pleasant, no acute distress, answers questions appropriately - Head Head exam: Present: atraumatic, normocephalic - Eye Eye exam: Present: PERRL, conjuntiva pink, sclera anicteric. Absent: conjunctival injection, scleral icterus - Neck Neck exam general surgery: Present: supple, trachea midline. Absent: lymphadenopathy - Respiratory Respiratory exam: Present: CTAB. Absent: accessory muscle use, rales, respiratory distress, rhonchi, stridor, wheezes, tachypnea - Cardiovascular Cardiovascular exam: Present: RRR, +S1, +S2, systolic murmur (Grade I-II best heard over LUSB). Absent: diastolic murmur, gallop, rubs - GI/Abdominal GI/Abdominal exam: Present: soft. Absent: distended, guarding, tenderness - Extremities Exam Extremities exam: Present: warm, radial pulses palpable and symmetrical. Absent : calf tenderness, cyanotic, pedal edema - Neurological Exam Neurological exam: Present: alert, oriented X3 - Skin Skin exam: Present: dry, intact, normal color Internal Medicine: Result - Labs CBC & Chem 7: 11/29/17 05:35 11/29/17 05:35 Labs: Short CBC 11/29/17 Range/Units 05:35 WBC 4.7 (4.3-11.1) K/mcL Hgb 10.0 L (11.5-15.4) g/dL Hct 30.9 L (35.3-44.9) % Plt Count 274 (140-400) K/mcL Neutrophils # 2.5 (1.6-8.9) K/mcL BMP 11/29/17 05:35 Sodium 138 Potassium 4.6 Chloride 106 Carbon Dioxide 25 BUN 38 H Creatinine 1.43 H Glucose 207 H Calcium 9.7 - ABG Interpretation ABG results: PT/INR, D-dimer PT 11.0 Seconds (9.4-12.1) 11/28/17 00:50 Consult Discharge Plan - Plan Referrals: Tanner Renteria, PAC [Primary Care Provider] -
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
[2017-11-29] MEDS: Vancomycin 500 MG in 0.9 % Sodium Chloride Mini Bag 100 ML IVPB SCH (15:39)
[2017-11-29 16:00] VITALS: BP 138/73
--- NOTE | 2017-11-29 16:03 | Discharge Summary ---
- NOTES TO OUTPATIENT PROVIDER Notes to Outpatient Provider: f/u with PCP in one week. f//u with Meatcutter in 1-2 weeks. f/u with Urologist as scheduled before Orders not resulted at time of discharge: Pending orders 11/27/17 Culture,Urine [RM] Stat 11/29/17 05:35 Culture,Blood [BC] AM 0400 HIV Qualitative PCR(Detection) Routine 11/30/17 04:00 BMP [Basic Metabolic Panel] AM 0400 Complete Blood Count [HEME] AM 0400 12/01/17 04:00 BMP [Basic Metabolic Panel] AM 0400 Complete Blood Count [HEME] AM 0400 12/02/17 04:00 BMP [Basic Metabolic Panel] AM 0400 Complete Blood Count [HEME] AM 0400 Date of Encounter: 11/29/17 Time of Encounter: 16:01 - Discharge Diagnosis (1) Sepsis Priority: Primary Status: Suspected Qualifiers: Sepsis type: sepsis due to unspecified organism Qualified Code(s): A41.9 - Sepsis, unspecified organism (2) Bacteremia Priority: Secondary Status: Acute Comments: contaminated (3) Hypoglycemia Priority: Primary Status: Acute (4) Stage 3 chronic kidney disease due to type 2 diabetes mellitus Priority: Secondary Status: Chronic (5) UTI (urinary tract infection) Priority: Secondary Status: Acute Qualifiers: Urinary tract infection type: acute cystitis Hematuria presence: without hematuria Qualified Code(s): N30.00 - Acute cystitis without hematuria (6) Diabetes Priority: Secondary Status: Chronic Qualifiers: Diabetes mellitus type: type 1 Diabetes mellitus complication status: without complication Qualified Code(s): E10.9 - Type 1 diabetes mellitus without complications (7) Hypothermia Priority: Primary Status: Resolved Qualifiers: Encounter type: initial encounter Qualified Code(s): T68.XXXA - Hypothermia , initial encounter (8) Gardnerella vaginitis Priority: Secondary Status: Acute (9) IV drug abuse Priority: Primary Status: Acute (10) DVT prophylaxis Priority: Secondary Status: Acute Hospital course: Ms. Kuhn is a 52 year old female known DM, CKD-3, Recurrent UTI IVDA pt admitted with hypothermia, hypoglycemia and concern for sepsis. Pt was started on IV hydration and empirical abx. Her UA showed yeast, no bacteria. Her blood cx 1/2 sets came back as positive for Coag negative Staph. ID evaluated the pt and suggest contaminated bacteremia. No need of any antibiotic now. Also her Urine grew staph, which also seems to be contaminated and pt denied of any urinary symptoms. So ID did not recommend any abx treatment for UTI too. She does have Gardenella positive vaginitis so continued Flagyl for 5 more days. I did grief counselor the pt quitting drugs completely, her UDS came back as positive for cocaine now. Pt remained afebrile and her WBC WNL. Will d/c her home in stable condition today. - Time Spent with Patient Total time spent providing and/or coordinating discharge services: - Discharge Medications Prescriptions: metroNIDAZOLE [Flagyl] 500 mg PO TID #15 tablet Home Medications: Artificial Tear Drops [Isopto Tears] 1 drop OP AD 04/01/15 [History] Insulin ASPART [NovoLOG] 0 unit SQ TID 04/01/15 [History] Calcitriol [Rocaltrol] 0.25 mcg PO MOWEFR 11/11/17 [History] Insulin Degludec [Tresiba Flextouch U-100] 20 unit SQ QAM 11/11/17 [History] Iron Polysaccharide Complex [Pro Fe] 180 mg PO QAM 11/11/17 [History] Multivit-Minerals/Folic Acid [Adult Multi Gummies] 200 mcg PO DAILY 11/11/17 [ History] Sertraline [Zoloft] 25 mg PO DAILY 11/11/17 [History] Cyclobenzaprine [Flexeril] 10 mg PO TID 11/27/17 [History] lamoTRIgine [Lamictal] 25 mg PO BID 11/27/17 [History] DiphenhydraMINE [Benadryl] 25 mg PO HS 11/28/17 [History] OXcarbazepine [Trileptal] 300 mg PO BID 11/28/17 [History] hydrOXYzine pamoate [HydrOXYzine Pamoate] 25 mg PO BID 11/28/17 [History] metroNIDAZOLE [Flagyl] 500 mg PO TID #15 tablet 11/29/17 [Rx] Allergies/Adverse Reactions: 3 Allergy/AdvReac Type Severity Reaction Status Date / Time No Known Allergies Allergy Verified 11/27/17 18:07 Date of admission: 11/27/17 21:53 Primary care physician: Tanner Renteria Consults: 11/28/17 14:23 Consult to Infectious Diseases [CONS] Routine Consulting Provider: Infectious Disease Jessica Reason for Consult: GPC in blood. Hx IVDU. Call Completed: No - Constitutional Vitals: Temp Pulse Resp BP Pulse Ox 98.8 F 68 18 138/73 93 11/29/17 15:58 11/29/17 15:58 11/29/17 15:58 11/29/17 15:58 11/29/17 15:58 General appearance: Present: cooperative, A&O X 3, pleasant, no acute distress, answers questions appropriately - Head Head exam: Present: atraumatic, normal inspection - Respiratory Respiratory exam: Present: decreased breath sounds. Absent: respiratory distress, rhonchi, wheezes - Cardiovascular Cardiovascular exam: Present: RRR, +S1, +S2. Absent: systolic murmur, tachycardia - Extremities Exam Extremities exam: Absent: calf tenderness, pedal edema, tenderness - Back Exam Back exam: Absent: CVA tenderness (L), CVA tenderness (R) - Neurological Exam Neurological exam: Present: alert, oriented X3 - Psychiatric Psychiatric exam: Present: normal affect, normal mood - Patient Status Disposition: Home, Self-Care Condition: Good Overall status at discharge: patient is back to baseline - Discharge Instructions Follow Up With: Tanner Renteria, PAC [Primary Care Provider] - - Diet and Activity Activity: increase activity as tolerated Diet: advance to your usual diet
[2017-11-29] MEDS ORDERED: Aminoglycoside Consult 1 EACH MC ONE (18:15)
--- NOTE | 2017-12-01 14:49 | Electrocardiograph Report ---
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
== END 2017-11-29 18:16 | disposition home or self-care (01) | DRG 872 ==
LOC: 3ANU 12:29 → EMEROO 12:29 → 3ANU 20:14
PROVIDERS: ADMIT Internal Medicine; ATTEND Internal Medicine

== ENCOUNTER 2018-02-12 06:42 | Inpatient (IN) ==
--- NOTE | 2018-02-12 07:04 | Emergency Department Note ---
Disposition Clinical Impression: Hypothermia due to non-environmental cause, Hypoglycemia, Acute kidney injury superimposed on chronic kidney disease UTI (urinary tract infection) Qualifiers: Urinary tract infection type: acute cystitis Hematuria presence: without hematuria Qualified Code(s): N30.00 - Acute cystitis without hematuria Disposition: Admitted As Inpatient Condition: Fair Referrals: Tanner Renteria, PAC [Primary Care Provider] - Forms: ED Satisfaction Letter General Adult HPI - General Chief complaint: ED Neuro Symptoms/Deficit Source: EMS Limitations: no limitations Nursing Notes Reviewed: Yes Vital Signs Reviewed: Yes - History of Present Illness HPI Narrative: Patient is known type II diabetic who presents to the emergency department after being found hypoglycemic. Initial blood glucose was in the 40s. Patient was given 20 units of Tarceva. Patient states that her friend found her not being responsive and that is why she gave her the medicine. Patient states that she normally takes her insulin daily, but did not take any today. Patient never checks her blood glucose at home. Patient states that she has chills but no fever and reporting lower abdominal pain. Patient denies any use of antipsychotics. Patient reports IV drug abuse. Pain Scale: 0 - Related Data Home Medications Medication Instructions Recorded Confirmed Calcitriol [Rocaltrol] 0.25 mcg PO MOWEFR 11/11/17 02/12/18 Insulin Degludec [Tresiba 20 unit SQ QAM 11/11/17 02/12/18 Flextouch U-100] Iron Polysaccharide Complex [Pro 180 mg PO QAM 11/11/17 02/12/18 Fe] Multivit-Minerals/Folic Acid 200 mcg PO DAILY 11/11/17 02/12/18 [Adult Multi Gummies] Sertraline [Zoloft] 25 mg PO DAILY 11/11/17 02/12/18 lamoTRIgine [Lamictal] 25 mg PO BID 11/27/17 02/12/18 DiphenhydraMINE [Benadryl] 25 mg PO HS 11/28/17 02/12/18 OXcarbazepine [Trileptal] 300 mg PO BID 11/28/17 02/12/18 hydrOXYzine pamoate [HydrOXYzine 25 mg PO BID 11/28/17 02/12/18 Pamoate] Cyclobenzaprine [Flexeril] 10 mg PO TID PRN 02/12/18 02/12/18 Allergies Allergy/AdvReac Type Severity Reaction Status Date / Time No Known Allergies Allergy Verified 11/27/17 18:07 All systems ED: reviewed and negative except as stated. Review of Systems: As Per HPI Constitutional: Reports: chills Cardiovascular: Denies: chest pain Respiratory: Denies: cough, dyspnea Gastrointestinal: Reports: abdominal pain. Denies: nausea, vomiting Genitourinary: Denies: urgency, dysuria, frequency Musculoskeletal: Denies: back pain Integumentary: Denies: rash Neurological: Denies: headache Psychiatric: Reports: depression Endocrine: Reports: fatigue Past Medical History - Past Medical History Medical history: Reports: diabetes, renal disease, other Surgical history: Reports: no surgical history Psychiatric history: Reports: bipolar, depression - Social History Smoking Status: Never smoker Smokeless Tobacco Status: No Alcohol use: Reports: none Drug use: Reports: cocaine, other Physical Exam - General Limitations: no limitations General appearance: alert, in no apparent distress - Head Head exam: atraumatic, normocephalic - Eye Eye exam: Present: EOMI. Absent: scleral icterus - ENT ENT exam: normal oropharynx - Neck Neck exam: Present: trachea midline - Chest Chest inspection: Present: symmetric chest wall rise - Respiratory Respiratory exam: Present: normal lung sounds bilaterally. Absent: respiratory distress, accessory muscle use - Cardiovascular Cardiovascular exam: Present: regular rate, normal rhythm. Absent: systolic murmur, diastolic murmur - Abdominal Exam Abdominal exam: Present: soft, Non-Tender. Absent: distention, guarding, rebound, rigidity - Extremities Exam Extremities exam: Present: other (Delayed capillary refill) - Back Exam Back exam: Absent: CVA tenderness (R), CVA tenderness (L) - Neurological Exam Neurological exam: Present: alert, oriented X3, CN II-XII intact - Psychiatric Psychiatric exam: Present: normal affect, normal mood - Skin Skin exam: Present: other (Skin cool). Absent: rash Course Course Narrative: 53-year-old female presents emergency department with concern for hypoglycemia and hypothermia. Patient's current glucose here in the emergency department is 66. Patient given glucose through fruit juice as well as a meal. Patient's initial temperature is 93.3. Patient has difficulty gaining intravenous access. We have consulted the PICC team. We are obtaining CBC, BMP, hepatic panel, lactic acid, blood cultures, urinalysis, TSH. We will also obtain Chest x-ray. Patient has had bacteremia in the past with staph saprophyticus. Patient has been placed in a bear hugger. We will provide warmed intravenous fluids. - Reevaluation(s) Reevaluation #1: Patient's temperature is now 97.7. Patient has no complaints at this time. Still waiting on urinalysis. Patient has elevated creatinine. We have addressed this with 2 L of fluid. We will start vancomycin and Zosyn. Patient had difficult access. We inserted central line. Time: 09:30 Reevaluation #2: Patient has normal lactic acid. Creatinine is elevated at 2.11. Patient received vancomycin and Zosyn. She just received 2 L of fluid. The emergency department. This time, patient was admitted to Dr. Dominguez with both concern for hypoglycemia, hypothermia, acute renal insufficiency on chronic kidney disease. Patient agree with plan. Patient hemodynamically stable at time of admission. Time: 11:30 Vital Signs Temperature 93.3 F L 02/12/18 06:47 Pulse Rate 74 02/12/18 06:47 Respiratory Rate 14 02/12/18 06:47 Blood Pressure 145/100 02/12/18 06:47 O2 Sat by Pulse Oximetry 97 02/12/18 06:47 Temperature 98.1 F 02/12/18 11:16 Pulse Rate 71 02/12/18 11:16 Respiratory Rate 18 02/12/18 11:16 Blood Pressure 110/72 02/12/18 11:16 O2 Sat by Pulse Oximetry 95 02/12/18 11:16 Oxygen Delivery Oxygen Delivery Room Air Procedures - Central Line Placement Right IJ Central Line Inserted*: Yes Central Line Catheter Replacement*: Yes Central Line Insertion: emergent Consent Obtained: written consent Procedural Pause: assemble equipment and verify supplies, perform hand hygiene Patient Placed on Monitor/Pulse Ox: Yes During the Procedure: clinician is wearing sterile gloves, cap, mask,& gown during insertion, sterile field and sterile technique are maintained, patient's face is covered with drape or mask and wearing a cap, everyone in room is wearing a mask Central Line Prep: Povidone-Iodine 1% Prep the Procedure Site: apply chloraprep to the skin using a back and forth scrubbing motion Local Anesthetic: lidocaine 1%, with epi Amount of anesthesia used (mL): 5 Ultrasound Used for Placement: Yes Central Line Lumen Inserted: triple Post Procedure: sutured in place, good blood return, all ports aspirated, flushed, capped, sterile dressing applied, guide wire removed and visualized, dressing is dated Post Procedure X-Ray: tip of catheter in good position, no pneumothorax seen Patient Tolerated Procedure: well, no complications Complications: none Name of Clinician Inserting Central Line: Dr. Haris Lewis Clinician Assisting/Completing Checklist: Dr. Joe Metz Date: 02/12/18 Medical Decision Making - Lab Data Result diagrams: 02/12/18 07:10 02/12/18 07:10 Lab Results 02/12/18 02/12/18 02/12/18 Range/Units 07:10 07:10 07:10 WBC 5.2 (4.3-11.1) K/mcL RBC 3.99 (3.82-4.97) M/mcL Hgb 11.8 (11.5-15.4) g/dL Hct 36.4 (35.3-44.9) % MCV 91.2 (83.0-100.0) fL MCH 29.6 (28.0-33.3) pg MCHC 32.4 (31.6-35.5) g/dL RDW 12.7 (11.5-14.5) % Plt Count 207 (140-400) K/mcL MPV 10.8 (9.4-12.4) fL Immature Gran % 0.8 (0-4) % Seg Neutrophils % 61.1 % Lymphocytes % 29.2 % Monocytes % 6.8 % Eosinophils % 1.7 % Basophils % 0.4 % Neutrophils # 3.2 (1.6-8.9) K/mcL Lymphocytes # 1.5 (0.6-4.6) K/mcL Monocytes # 0.4 (0.0-1.3) K/mcL Eosinophils # 0.1 (0.0-0.6) K/mcL Basophils # 0.0 (0.0-0.2) K/mcL PT 10.2 (9.4-12.1) Seconds INR 0.9 APTT 33.9 (26.0-36.0) Seconds Sodium 143 (136-145) mEq/L Potassium 3.4 L (3.5-5.1) mEq/L Chloride 104 (98-107) mEq/L Carbon Dioxide 30 H (23-29) mEq/L BUN 49 H (6-20) mg/dL Creatinine 2.11 H (0.60-1.20) mg/dL Est GFR ( Amer) 30 L (> 60) Est GFR (Non-Af Amer) 24 L (> 60) BUN/Creatinine Ratio 23 (6-26) Glucose 132 H (70-105) mg/dL Calculated Osmolality 311 H (280-300) Lactic Acid (0.5-2.2) mmol/L Calcium 10.2 (8.6-10.3) mg/dL Total Bilirubin 0.4 (0.3-1.0) mg/dL Direct Bilirubin 0.1 (0.0-0.2) mg/dL Indirect Bilirubin 0.3 (0.0-1.2) mg/dL AST 80 H (13-39) Units/L ALT 84 H (7-52) Units/L Alkaline Phosphatase 172 H (34-104) Units/L Troponin I < 0.03 (< 0.04) ng/mL Serum Total Protein 7.5 (6.4-8.9) g/dL Albumin 4.4 (3.5-5.7) g/dL Globulin 3.1 (2.4-3.5) g/dL Albumin/Globulin Ratio 1.4 (1.1-2.2) Lipase 7 L (11-82) Units/L TSH 0.973 (0.340-5.600) mcIU/mL Urine Color (Yellow) Urine Clarity (Clear) Urine pH (5.0-8.0) pH Units Ur Specific [place] (1.010-1.025) Urine Protein (Neg-Trace) mg/dL Urine Glucose (UA) (Normal) mg/dL Urine Ketones (Negative) mg/dL Urine Blood (Negative) Urine Nitrite (Negative) Urine Bilirubin (Negative) Urine Urobilinogen (Normal) mg/dL Ur Leukocyte Esterase (Negative) Urine Microscopic RBC (0-3) per hpf Urine Microscopic WBC (0-3) per hpf Ur Squamous Epith Cells (None-Few) per lpf Urine Bacteria (None-Few) per hpf Hyaline Casts (None-Few) per lpf Urine Yeast (None Seen) per hpf Ur Culture Indicated? (NO) Urine Creatinine mg/dL Urine Sodium mEq/L Urine Opiates Screen (Lhqkve=183) ng/mL Ur Barbiturates Screen (Mdzett=809) ng/mL Ur Phencyclidine Scrn (Cutoff=25) ng/mL Ur Amphetamines Screen (Mvcgxj=3078) ng/mL U Benzodiazepines Scrn (Kjstff=809) ng/mL Urine Cocaine Screen (Cutoff= 300) ng/mL U Marijuana (THC) Screen (Cutoff = 50) ng/mL Ur Drug Screen Interp 02/12/18 02/12/18 02/12/18 Range/Units 07:42 10:30 10:30 WBC (4.3-11.1) K/mcL RBC (3.82-4.97) M/mcL Hgb (11.5-15.4) g/dL Hct (35.3-44.9) % MCV (83.0-100.0) fL MCH (28.0-33.3) pg MCHC (31.6-35.5) g/dL RDW (11.5-14.5) % Plt Count (140-400) K/mcL MPV (9.4-12.4) fL Immature Gran % (0-4) % Seg Neutrophils % % Lymphocytes % % Monocytes % % Eosinophils % % Basophils % % Neutrophils # (1.6-8.9) K/mcL Lymphocytes # (0.6-4.6) K/mcL Monocytes # (0.0-1.3) K/mcL Eosinophils # (0.0-0.6) K/mcL Basophils # (0.0-0.2) K/mcL PT (9.4-12.1) Seconds INR APTT (26.0-36.0) Seconds Sodium (136-145) mEq/L Potassium (3.5-5.1) mEq/L Chloride (98-107) mEq/L Carbon Dioxide (23-29) mEq/L BUN (6-20) mg/dL Creatinine (0.60-1.20) mg/dL Est GFR ( Amer) (> 60) Est GFR (Non-Af Amer) (> 60) BUN/Creatinine Ratio (6-26) Glucose (70-105) mg/dL Calculated Osmolality (280-300) Lactic Acid 1.3 (0.5-2.2) mmol/L Calcium (8.6-10.3) mg/dL Total Bilirubin (0.3-1.0) mg/dL Direct Bilirubin (0.0-0.2) mg/dL Indirect Bilirubin (0.0-1.2) mg/dL AST (13-39) Units/L ALT (7-52) Units/L Alkaline Phosphatase (34-104) Units/L Troponin I (< 0.04) ng/mL Serum Total Protein (6.4-8.9) g/dL Albumin (3.5-5.7) g/dL Globulin (2.4-3.5) g/dL Albumin/Globulin Ratio (1.1-2.2) Lipase (11-82) Units/L TSH (0.340-5.600) mcIU/mL Urine Color Yellow (Yellow) Urine Clarity Cloudy A (Clear) Urine pH 6.0 (5.0-8.0) pH Units Ur Specific [place] 1.016 (1.010-1.025) Urine Protein Negative (Neg-Trace) mg/dL Urine Glucose (UA) 500 H (Normal) mg/dL Urine Ketones Negative (Negative) mg/dL Urine Blood Negative (Negative) Urine Nitrite Negative (Negative) Urine Bilirubin Negative (Negative) Urine Urobilinogen Normal (Normal) mg/dL Ur Leukocyte Esterase Large H (Negative) Urine Microscopic RBC 0-3 (0-3) per hpf Urine Microscopic WBC 50-100 H (0-3) per hpf Ur Squamous Epith Cells Many H (None-Few) per lpf Urine Bacteria None Seen (None-Few) per hpf Hyaline Casts None Seen (None-Few) per lpf Urine Yeast Few H (None Seen) per hpf Ur Culture Indicated? NO. A (NO) Urine Creatinine mg/dL Urine Sodium mEq/L Urine Opiates Screen Negative (Faslvz=312) ng/mL Ur Barbiturates Screen Negative (Bkystd=095) ng/mL Ur Phencyclidine Scrn Negative (Cutoff=25) ng/mL Ur Amphetamines Screen Negative (Ziyxdx=1572) ng/mL U Benzodiazepines Scrn Negative (Biqyvn=856) ng/mL Urine Cocaine Screen Positive H (Cutoff= 300) ng/mL U Marijuana (THC) Screen Negative (Cutoff = 50) ng/mL Ur Drug Screen Interp See Below 02/12/18 Range/Units 10:30 WBC (4.3-11.1) K/mcL RBC (3.82-4.97) M/mcL Hgb (11.5-15.4) g/dL Hct (35.3-44.9) % MCV (83.0-100.0) fL MCH (28.0-33.3) pg MCHC (31.6-35.5) g/dL RDW (11.5-14.5) % Plt Count (140-400) K/mcL MPV (9.4-12.4) fL Immature Gran % (0-4) % Seg Neutrophils % % Lymphocytes % % Monocytes % % Eosinophils % % Basophils % % Neutrophils # (1.6-8.9) K/mcL Lymphocytes # (0.6-4.6) K/mcL Monocytes # (0.0-1.3) K/mcL Eosinophils # (0.0-0.6) K/mcL Basophils # (0.0-0.2) K/mcL PT (9.4-12.1) Seconds INR APTT (26.0-36.0) Seconds Sodium (136-145) mEq/L Potassium (3.5-5.1) mEq/L Chloride (98-107) mEq/L Carbon Dioxide (23-29) mEq/L BUN (6-20) mg/dL Creatinine (0.60-1.20) mg/dL Est GFR ( Amer) (> 60) Est GFR (Non-Af Amer) (> 60) BUN/Creatinine Ratio (6-26) Glucose (70-105) mg/dL Calculated Osmolality (280-300) Lactic Acid (0.5-2.2) mmol/L Calcium (8.6-10.3) mg/dL Total Bilirubin (0.3-1.0) mg/dL Direct Bilirubin (0.0-0.2) mg/dL Indirect Bilirubin (0.0-1.2) mg/dL AST (13-39) Units/L ALT (7-52) Units/L Alkaline Phosphatase (34-104) Units/L Troponin I (< 0.04) ng/mL Serum Total Protein (6.4-8.9) g/dL Albumin (3.5-5.7) g/dL Globulin (2.4-3.5) g/dL Albumin/Globulin Ratio (1.1-2.2) Lipase (11-82) Units/L TSH (0.340-5.600) mcIU/mL Urine Color (Yellow) Urine Clarity (Clear) Urine pH (5.0-8.0) pH Units Ur Specific [place] (1.010-1.025) Urine Protein (Neg-Trace) mg/dL Urine Glucose (UA) (Normal) mg/dL Urine Ketones (Negative) mg/dL Urine Blood (Negative) Urine Nitrite (Negative) Urine Bilirubin (Negative) Urine Urobilinogen (Normal) mg/dL Ur Leukocyte Esterase (Negative) Urine Microscopic RBC (0-3) per hpf Urine Microscopic WBC (0-3) per hpf Ur Squamous Epith Cells (None-Few) per lpf Urine Bacteria (None-Few) per hpf Hyaline Casts (None-Few) per lpf Urine Yeast (None Seen) per hpf Ur Culture Indicated? (NO) Urine Creatinine 47 mg/dL Urine Sodium 53.8 mEq/L Urine Opiates Screen (Wnkefc=975) ng/mL Ur Barbiturates Screen (Fpnsnl=639) ng/mL Ur Phencyclidine Scrn (Cutoff=25) ng/mL Ur Amphetamines Screen (Anafuw=3111) ng/mL U Benzodiazepines Scrn (Vzjokd=047) ng/mL Urine Cocaine Screen (Cutoff= 300) ng/mL U Marijuana (THC) Screen (Cutoff = 50) ng/mL Ur Drug Screen Interp - EKG Data EKG #1 EKG attestation: Yes I reviewed and interpreted this EKG. EKG results narrative: 7:23 Ventricular rate 71 bpm, QRS duration 86 ms, QT 430 ms, QTC 452 ms, normal axis. Sinus rhythm with ventricular rate of 71 bpm. There is no high-grade AV block. No changes from previous electrocardiogram obtained on 11/28/2017.
[2018-02-12] MEDS ORDERED: 0.9 % Sodium Chloride 1,000 ML IVC ONE ×2 (07:51→09:53)
[2018-02-12 07:59] LABS: Basophils % 0.4 %; Eosinophils # 0.1 K/mcL (0.0-0.6); Eosinophils % 1.7 %; Hematocrit 36.4 % (35.3-44.9); Hemoglobin 11.8 g/dL (11.5-15.4); Immature Granulocytes % 0.8 % (0-4); Lymphocytes # 1.5 K/mcL (0.6-4.6); Lymphocytes % 29.2 %; Mean Corpuscular HGB Conc 32.4 g/dL (31.6-35.5); Mean Corpuscular Hemoglobin 29.6 pg (28.0-33.3); Mean Corpuscular Volume 91.2 fL (83.0-100.0); Mean Platelet Volume 10.8 fL (9.4-12.4); Monocytes # 0.4 K/mcL (0.0-1.3); Monocytes % 6.8 %; Neutrophils # 3.2 K/mcL (1.6-8.9); Platelet Count 207 K/mcL (140-400); Red Blood Count 3.99 M/mcL (3.82-4.97); Red Cell Distribution Width 12.7 % (11.5-14.5); Segmented Neutrophils % 61.1 %
--- NOTE | 2018-02-12 08:00 | Emergency Department Note ---
Disposition Clinical Impression: Hypothermia due to non-environmental cause Disposition: Still a Patient Forms: ED Satisfaction Letter General Adult HPI - General Chief complaint: ED Neuro Symptoms/Deficit Source: EMS Limitations: no limitations - History of Present Illness Pain Scale: 0 - Related Data Home Medications Medication Instructions Recorded Confirmed Artificial Tear Drops [Isopto 1 drop OP AD 04/01/15 11/27/17 Tears] Insulin ASPART [NovoLOG] 0 unit SQ TID 04/01/15 11/27/17 Calcitriol [Rocaltrol] 0.25 mcg PO MOWEFR 11/11/17 11/27/17 Insulin Degludec [Tresiba 20 unit SQ QAM 11/11/17 11/27/17 Flextouch U-100] Iron Polysaccharide Complex [Pro 180 mg PO QAM 11/11/17 11/27/17 Fe] Multivit-Minerals/Folic Acid 200 mcg PO DAILY 11/11/17 11/27/17 [Adult Multi Gummies] Sertraline [Zoloft] 25 mg PO DAILY 11/11/17 11/27/17 Cyclobenzaprine [Flexeril] 10 mg PO TID 11/27/17 11/27/17 lamoTRIgine [Lamictal] 25 mg PO BID 11/27/17 11/27/17 DiphenhydraMINE [Benadryl] 25 mg PO HS 11/28/17 11/28/17 OXcarbazepine [Trileptal] 300 mg PO BID 11/28/17 11/28/17 hydrOXYzine pamoate [HydrOXYzine 25 mg PO BID 11/28/17 11/28/17 Pamoate] Previous Rx's Medication Instructions Recorded metroNIDAZOLE [Flagyl] 500 mg PO TID #15 tablet 11/29/17 Allergies Allergy/AdvReac Type Severity Reaction Status Date / Time No Known Allergies Allergy Verified 11/27/17 18:07 Constitutional: Reports: chills Cardiovascular: Denies: chest pain Respiratory: Denies: cough, dyspnea Gastrointestinal: Reports: abdominal pain. Denies: nausea, vomiting Genitourinary: Denies: urgency, dysuria, frequency Neurological: Denies: headache Endocrine: Reports: fatigue Past Medical History - Past Medical History Medical history: Reports: diabetes, renal disease, other Surgical history: Reports: no surgical history Psychiatric history: Reports: bipolar, depression - Social History Smoking Status: Never smoker Smokeless Tobacco Status: No Alcohol use: Reports: none Drug use: Reports: cocaine, other Physical Exam - General Limitations: no limitations General appearance: alert, in no apparent distress Course - Reevaluation(s) Reevaluation #1: Attestation note I examined this patient and my medical decision-making was reviewed with the emergency medicine resident. I agree with the documented findings, disposition and treatment plan as described except to the extent set forth below. Patient seen with emergency medicine resident Dr. Haris Lewis, Please see a copy of his note for details of the H&P, ED evaluation, management and disposition. I have independently evaluated the patient and confirmed appropriate portions of the history and physical exam. Briefly: 53-year-old female admitted history to active IV drug use. Use crack cocaine recently, arrival by EMS for hypoglycemia and sleepiness. Her blood sugar was 45 on scene. It possibly one of her friends gave her insulin. Patient is hypothermic at 93 rectally getting up air hunger patient does have a history of bacteremia in the past. Although no known history of endocarditis. Patient is getting active rewarming she will be getting a midline place by ultrasound. She will get warm IV fluids workup for sepsis among other pollock derangements. Providing 45 minutes critical care service for this patient, admission anticipated, disposition pending. Patient is awake and alert 3 no external signs of trauma Time: 07:58 Vital Signs Temperature 93.3 F L 02/12/18 06:47 Pulse Rate 74 02/12/18 06:47 Respiratory Rate 14 02/12/18 06:47 Blood Pressure 145/100 02/12/18 06:47 O2 Sat by Pulse Oximetry 97 02/12/18 06:47 Temperature 93.3 F L 02/12/18 06:47 Pulse Rate 74 02/12/18 06:47 Respiratory Rate 14 02/12/18 06:47 Blood Pressure 145/100 02/12/18 06:47 O2 Sat by Pulse Oximetry 97 02/12/18 06:47 Oxygen Delivery Oxygen Delivery Room Air
[2018-02-12 08:07] LABS: INR 0.9; Prothrombin Time 10.2 Seconds (9.4-12.1)
[2018-02-12 08:09] LABS: Activated Partial Thrombo Time 33.9 Seconds (26.0-36.0)
[2018-02-12 08:19] LABS: Troponin I < 0.03 ng/mL (< 0.04)
[2018-02-12 08:20] LABS: Alanine Aminotransferase 84 Units/L (7-52); Albumin 4.4 g/dL (3.5-5.7); Albumin/Globulin Ratio 1.4 (1.1-2.2); Alkaline Phosphatase 172 Units/L (34-104); Aspartate Amino Transferase 80 Units/L (13-39); BUN/Creatinine Ratio 23 (6-26); Bilirubin,Direct 0.1 mg/dL (0.0-0.2); Bilirubin,Indirect 0.3 mg/dL (0.0-1.2); Bilirubin,Total 0.4 mg/dL (0.3-1.0); Blood Urea Nitrogen 49 mg/dL (6-20); Calcium 10.2 mg/dL (8.6-10.3); Carbon Dioxide 30 mEq/L (23-29); Chloride 104 mEq/L (98-107); Globulin 3.1 g/dL (2.4-3.5); Glucose 132 mg/dL (70-105); Lipase 7 Units/L (11-82); Osmolality,Calculated 311 (280-300); Potassium 3.4 mEq/L (3.5-5.1); Sodium 143 mEq/L (136-145); Total Protein 7.5 g/dL (6.4-8.9); eGFR For African Americans 30 (> 60); eGFR For Non-African Americans 24 (> 60)
[2018-02-12 08:32] LABS: Thyroid Stimulating Hormone 0.973 mcIU/mL (0.340-5.600)
[2018-02-12] MEDS ORDERED: Piperacillin/Tazobactam 3.375 GM in 0.9 % Sodium Chloride Mini Bag 100 ML IVPB ONE (09:44)
[2018-02-12 10:40] LABS: Bilirubin,Urine Negative (Negative); Blood,Urine Negative (Negative); Clarity,Urine Cloudy (Clear); Color,Urine Yellow (Yellow); Glucose,Urine (UA) 500 mg/dL (Normal); Ketones,Urine Negative (Negative); Leukocyte Esterase,Urine Large (Negative); Nitrite,Urine Negative (Negative); Protein,Urine Negative (Neg-Trace); Specific Gravity,Urine 1.016 (1.010-1.025); Urobilinogen,Urine Normal (Normal)
[2018-02-12 10:42] LABS: Bacteria,Urine None Seen per hpf (None-Few); Hyaline Casts,Urine None Seen per lpf (None-Few); RBC,Urine 0-3 per hpf (0-3); Squamous Epithelial Cell,Urine Many per lpf (None-Few); WBC,Urine 50-100 per hpf (0-3)
[2018-02-12 10:57] LABS: Yeast,Urine Few per hpf (None Seen)
[2018-02-12 11:01] LABS: Amphetamine Screen,Urine Negative ng/mL (Cutoff=1000); Barbiturate Screen,Urine Negative ng/mL (Cutoff=200); Benzodiazepines Screen,Urine Negative ng/mL (Cutoff=200); Cannabinoid Screen,Urine Negative ng/mL (Cutoff = 50); Cocaine Screen,Urine Positive ng/mL (Cutoff= 300); Opiate Screen,Urine Negative ng/mL (Cutoff=300); Phencyclidine Screen,Urine Negative ng/mL (Cutoff=25)
[2018-02-12 11:17] LABS: Sodium, Urine 53.8 mEq/L
[2018-02-12] MEDS ORDERED: Naloxone 0.4 MG/ML INJ IVP PRN (12:00)
[2018-02-12] MEDS ORDERED: D5% in Water 1,000 ML IVC PRN (12:06)
[2018-02-12] MEDS ORDERED: Dextrose Gel 15 GM/37.5 ML TUBE PO PRN ×2 (12:06)
[2018-02-12] MEDS ORDERED: *HR* Dextrose 50 % in Water (Syg) 50 ML SYRINGE IVP PRN (12:06)
--- NOTE | 2018-02-12 12:16 | Internal Med History&Physical ---
<Jo Ann Rosen Severo - Last Filed: 02/12/18 12:13> Date of Encounter: 02/12/18 Time of Encounter: 12:14 Internal Medicine - H&P: HPI Chief complaint: Lethargy, hypothermia and hypoglycemia Admitted From: Home Plans for Post Hospital Care: Home History of present illness: Ms. Kuhn is a 53 year old female with history of drug abuse, DKA, DM, stage III CKD, Hep C, and IVDU. The patient indicated that she was lethargy at home and was able to call one of her friends who called the squad for he. She indicated that she had not been eating, she's been using crack alot lately and has not had any appetite. The patient states her last use was on Monday. She also reportedly had a friend give her a dose of insulin, trying to help her. I asked the patient if she takes her insulin at home and she was not sure, but she didn't think so. The patient was crying the entire interview, concerned because she doesn't have many friends and has had to move frequently. Temp was 93.3 on arrival, bs was 45, both were corrected in the ED. Wbc is 5.2, K was 3.4 , HGB is 11.8., creat was 2.11. The patient urine was + for cocaine. The UA showed infection, large leukocyte esterase, wbc 50-100, and urine glucose 500. Will continue IV zosyn, as started in the ED. A midline is in place. Past Med Surg Social Fam HX - Past Medical History Medical history: diabetes, renal disease, other Additional medical history: CKD Psychiatric history: bipolar, depression - Past Surgical History Surgical History: no surgical history - Social History Smoking Status: Never smoker Smokeless Tobacco Status: No Alcohol use: none Drug use: cocaine, other - Family History Father Living Status: Still Living Hx Family Cardiac Disorders: No Internal Medicine - H&P: Meds Calcitriol [Rocaltrol] 0.25 mcg PO MOWEFR 11/11/17 [History] Insulin Degludec [Tresiba Flextouch U-100] 20 unit SQ QAM 11/11/17 [History] Iron Polysaccharide Complex [Pro Fe] 180 mg PO QAM 11/11/17 [History] Multivit-Minerals/Folic Acid [Adult Multi Gummies] 200 mcg PO DAILY 11/11/17 [ History] Sertraline [Zoloft] 25 mg PO DAILY 11/11/17 [History] lamoTRIgine [Lamictal] 25 mg PO BID 11/27/17 [History] DiphenhydraMINE [Benadryl] 25 mg PO HS 11/28/17 [History] OXcarbazepine [Trileptal] 300 mg PO BID 11/28/17 [History] hydrOXYzine pamoate [HydrOXYzine Pamoate] 25 mg PO BID 11/28/17 [History] Cyclobenzaprine [Flexeril] 10 mg PO TID PRN 02/12/18 [History] 3 Allergy/AdvReac Type Severity Reaction Status Date / Time No Known Allergies Allergy Verified 11/27/17 18:07 All Systems PM: A 10-system review of systems was performed and is negative for pertinent findings except as documented above in the HPI. - Constitutional Constitutional: no chills, no fever(s), no night sweats - EENT Eyes: no change in vision, no discharge, no pain, no photophobia Ears: no ear discharge, no ear pain, no tinnitus Nose, mouth and throat: no dysphagia, no nasal discharge, no neck pain, no sore throat - Cardiovascular Cardiovascular ROS IM: no chest pain, no diaphoresis, no dyspnea, no lightheadedness, no palpitations, no syncope - Respiratory Respiratory: no cough, no dyspnea, no wheezing, no excessive phlegm production - Gastrointestinal Gastrointestinal: no abdominal pain, no diarrhea, no hematemesis, no hematochezia, no melena, no nausea, no vomiting - Genitourinary Genitourinary: no change in urinary stream, no dysuria, no flank pain, no hematuria - Musculoskeletal Musculoskeletal ROS IM: no numbness, no tingling - Integumentary Integumentary IM: no rash, no unusual bruising - Neurological Neurological ROS: other (Lethargy), no confusion, no convulsions, no focal weakness, no numbness, no tingling, no tremor(s) - Endocrine Endocrine IM: other (Hypothermic) - Hematologic/Lymphatic Hematologic/Lymphatic: no easy bruising - Constitutional Vitals: Temp Pulse Resp BP Pulse Ox 98.1 F 71 18 110/72 95 02/12/18 11:16 02/12/18 11:16 02/12/18 11:16 02/12/18 11:16 02/12/18 11:16 General appearance: Present: A&O X 3, answers questions appropriately - Head Head exam: Present: atraumatic, normocephalic - Eye Eye exam: Present: PERRL, conjuntiva pink, sclera anicteric Pupils: Present: PERRL - Neck Neck exam general surgery: Present: supple, trachea midline. Absent: lymphadenopathy - Respiratory Respiratory exam: Present: CTAB. Absent: accessory muscle use, rales, rhonchi, wheezes - Cardiovascular Cardiovascular exam: Present: RRR, +S1, +S2. Absent: diastolic murmur, gallop, rubs, systolic murmur - GI/Abdominal GI/Abdominal exam: Present: normal bowel sounds, soft, no peritoneal signs. Absent: distended, tenderness - Extremities Exam Extremities exam: Present: warm, radial pulses palpable and symmetrical. Absent : calf tenderness, cyanotic, pedal edema - Neurological Exam Neurological exam: Present: CN II-XII intact, oriented X3, no focal deficits. Absent: pronater drift, facial droop, speech deficit - Skin Skin exam: Present: dry, intact Internal Med - H&P Results - Labs CBC & Chem 7: 02/12/18 07:10 02/12/18 07:10 - Assessment and plan (1) Hypoglycemia Current Visit: Yes Status: Acute Assessment and plan: Accu checks q 2 x3 then will reevaluate Diabetic diet Monitor daily labs IVF's (2) Hypothermia due to non-environmental cause Current Visit: Yes Status: Acute Assessment and plan: Likely 2/2 the patient hypoglycemic status Monitor vital signs Monitor daily labs IVF'S (3) Acute kidney injury superimposed on chronic kidney disease Current Visit: Yes Status: Acute Assessment and plan: Creat up to 2.1, likely due to dehydration Will continue IVF's Monitor daily labs (4) Hypokalemia Current Visit: No Status: Resolved Assessment and plan: Will supplement with 20 meq kcl x1 Monitor serum k -via daily labs (5) UTI (urinary tract infection) Current Visit: Yes Status: Acute Assessment and plan: Continuous IVF's IV zosyn q8h Monitor daily labs Qualifiers: Urinary tract infection type: acute cystitis Hematuria presence: without hematuria Qualified Code(s): N30.00 - Acute cystitis without hematuria (6) Crack cocaine use Current Visit: No Status: Acute Assessment and plan: Elicit drug use, Last use was Monday Social service consult Will add ativan prn (7) Hepatitis C Current Visit: No Status: Acute Assessment and plan: Management outpatient Qualifiers: Viral hepatitis chronicity: chronic Hepatic coma status: without hepatic coma Qualified Code(s): B18.2 - Chronic viral hepatitis C (8) Anxiety Current Visit: No Status: Chronic Assessment and plan: Will add ativan prn Resume home meds - Time Spent With Patient Total time spent is greater than 50% in coordination of care (as documented) at patient's floor/unit and/or counseling patient: less than 15 minutes <Arlet Massey - Last Filed: 02/12/18 14:05> Date of Encounter: 02/12/18 Time of Encounter: 13:59 Internal Medicine - H&P: HPI History of present illness: Ms. Kuhn is a 53 year old female All Systems PM: A 10-system review of systems was performed and is negative for pertinent findings except as documented above in the HPI. - Constitutional Vitals: Temp Pulse Resp BP Pulse Ox 98.1 F 77 14 116/81 100 02/12/18 13:12 02/12/18 13:12 02/12/18 13:12 02/12/18 13:12 02/12/18 13:12 Internal Med - H&P Results - Labs CBC & Chem 7: 02/12/18 07:10 02/12/18 07:10 - Attending Attestation I examined this patient and my medical decision-making was reviewed with the Nurse Practitioner, Jo Ann Rosen. I agree with the documented findings, disposition and treatment plan as described with any changes as documented below. 53-year-old female patient with history of polysubstance abuse presented to the ER with complaints of decreased mentation due to hypoglycemia with hypothermia. She received dextrose solution in the ER with improvement in her blood sugars and her mental status. Her hypothermia has also resolved. Patient denies any complaints at this time. No chest pain or palpitations. She feels much better. On examination, patient appears dry. Heart sounds are normal. Breath sounds are normal. Patient is oriented. Labs show elevated BUN and creatinine slightly above her baseline although within her prior range. She does have chronic kidney disease stage III. Hypoglycemia: Improved. Patient may have received long-acting insulin. We will monitor blood sugars closely. Hypothermia: Likely from hypoglycemia. Now resolved. Prior bacteremia: ED physician concerned that patient had prior bacteremia and may be having another episode of bacteremia. However I do not see any clinical features of this and reviewing her labs it appears that she had one positive blood culture with staph saprophyticus previously. This was most likely contaminant as another set of blood culture drawn at the same time was negative. I recommended following up on blood cultures as outpatient. However the ED physician was not comfortable letting the patient go from the ER. I discussed this with the patient. Patient also wishes to stay in the hospital overnight. I do not believe she needs any further antibiotics at this time. We will await culture results. Cocaine abuse: Patient admits to using cocaine yesterday. Counseled about cessation. 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 Possible UTI: Patient notes urinalysis shows 50-100 WBC but many squamous epithelial cells. She received antibiotics in the ER. We will stop Zosyn. Place patient on ceftriaxone. - Time Spent With Patient Total time spent is greater than 50% in coordination of care (as documented) at patient's floor/unit and/or counseling patient:
[2018-02-12] MEDS ORDERED: *HR* LORazepam 0.5 MG TABLET PO PRN (12:53)
[2018-02-12 13:13] LABS: Estimated Average Glucose 163 mg/dl; Hemoglobin A1C 7.3 %
[2018-02-12] MEDS: 0.9 % Sodium Chloride 1,000 ML IVC SCH (13:50)
[2018-02-12] MEDS: Piperacillin/Tazobactam 3.375 GM in 0.9 % Sodium Chloride Mini Bag 100 ML IVPB SCH (17:25)
[2018-02-12] MEDS: OXcarbazepine 150 MG TABLET PO SCH (21:12)
[2018-02-12] MEDS: lamoTRIgine 25 MG TABLET PO SCH (21:12)
[2018-02-12] MEDS: hydrOXYzine pamoate 25 MG CAPSULE PO SCH (21:12)
[2018-02-12] MEDS: Insulin LISPRO 300 UNITS/3 ML VIAL SQ SCH (21:29)
[2018-02-12] MEDS ORDERED: Piperacillin/Tazobactam 3.375 GM in 0.9 % Sodium Chloride Mini Bag 100 ML IVPB SCH (22:00)
[2018-02-13] MEDS: 0.9 % Sodium Chloride 1,000 ML IVC SCH (02:16)
[2018-02-13] MEDS: Piperacillin/Tazobactam 3.375 GM in 0.9 % Sodium Chloride Mini Bag 100 ML IVPB SCH (02:16)
[2018-02-13 04:01] LABS: Basophils % 0.7 %; Eosinophils # 0.1 K/mcL (0.0-0.6); Eosinophils % 2.6 %; Hematocrit 26.4 % (35.3-44.9); Immature Granulocytes % 0.2 % (0-4); Lymphocytes # 1.5 K/mcL (0.6-4.6); Lymphocytes % 35.9 %; Mean Corpuscular Hemoglobin 30.4 pg (28.0-33.3); Mean Corpuscular Volume 92.3 fL (83.0-100.0); Mean Platelet Volume 10.4 fL (9.4-12.4); Monocytes # 0.4 K/mcL (0.0-1.3); Monocytes % 9.5 %; Neutrophils # 2.2 K/mcL (1.6-8.9); Platelet Count 154 K/mcL (140-400); Red Blood Count 2.86 M/mcL (3.82-4.97); Red Cell Distribution Width 12.8 % (11.5-14.5); Segmented Neutrophils % 51.1 %
[2018-02-13 04:11] LABS: Hemoglobin 8.7 g/dL (11.5-15.4)
[2018-02-13 04:19] LABS: Calcium 8.7 mg/dL (8.6-10.3); Potassium 3.9 mEq/L (3.5-5.1)
--- NOTE | 2018-02-13 06:22 | Electrocardiograph Report ---
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
[2018-02-13] MEDS: lamoTRIgine 25 MG TABLET PO SCH ×2 (08:27→21:02)
[2018-02-13] MEDS: OXcarbazepine 150 MG TABLET PO SCH ×2 (08:28→21:02)
[2018-02-13] MEDS: Insulin LISPRO 300 UNITS/3 ML VIAL SQ SCH ×4 (08:28→21:02)
[2018-02-13] MEDS: Iron Polysaccharide Complex 150 MG CAPSULE PO SCH (08:28)
[2018-02-13] MEDS: hydrOXYzine pamoate 25 MG CAPSULE PO SCH ×2 (08:28→21:02)
[2018-02-13] MEDS: Multivit/Ca/Min/Fe/FA 1 TAB TABLET PO SCH (08:28)
--- NOTE | 2018-02-13 20:40 | Internal Med Progress Note ---
Date of Encounter: 02/13/18 Time of Encounter: 09:30 - Assessment and plan (1) Hypoglycemia Current Visit: Yes Status: Resolved Assessment and plan: hypoglycemic on admission, reports compliants with insulin regimen BS had been sporadic with very minimal sliding scale coverage Hold long acting insulin at this time and continue to monitor. A1c 7.3 range, likely would not need insulin. Would start on Trulicity on discharge rather than resuming insulin again before seeing PCP. (2) Acute kidney injury superimposed on chronic kidney disease Current Visit: Yes Status: Acute Assessment and plan: JAKE 2/2 dehydration IVF support. Cr improving. monitor BMPs (3) Hypothermia due to non-environmental cause Current Visit: Yes Status: Resolved Assessment and plan: Likely 2/2 hypoglycemia, resolved (4) UTI (urinary tract infection) Current Visit: Yes Status: Acute Assessment and plan: urine not clean, patient afebrile with no leukocytosis Not likely need any antibiotics. Will reassess for any symptoms. Zosyn discontinued. Qualifiers: Urinary tract infection type: acute cystitis Hematuria presence: without hematuria Qualified Code(s): N30.00 - Acute cystitis without hematuria - Time Spent With Patient Total time spent is greater than 50% in coordination of care (as documented) at patient's floor/unit and/or counseling patient: - Subjective Interval history: Reports feeling fine. No acute events overnight, denies any complaints today. - Constitutional Vitals: Temp Pulse Resp BP Pulse Ox 98.7 F 70 17 111/65 96 02/13/18 20:12 02/13/18 20:12 02/13/18 20:12 02/13/18 20:12 02/13/18 20:12 General appearance: Present: A&O X 3, answers questions appropriately Exam: General: Alert and oriented. Somewhat lethargic with eyes mostly closed but is fully alert when communicating. Skin: Normal color, no rash, no lesions. HEENT: EOMI, pupils equal, round and reactive. Cardiovascular: Regular rate, regular rythm. No murmurs appreciated. Lungs:Normal breath sounds, no wheezes or crackles. Abdomen:Soft, non-tender, no rigidity. Extremities:No deformity, no edema or tenderness, no joint swelling or clubbing. Neurological:Normal cognition, no weakness, no numbness. Rest of the physical exam is non contributory Internal Medicine: Result - Labs CBC & Chem 7: 02/13/18 03:30 02/13/18 03:30 Labs: Short CBC 02/13/18 Range/Units 03:30 WBC 4.2 L (4.3-11.1) K/mcL Hgb 8.7 L D (11.5-15.4) g/dL Hct 26.4 L (35.3-44.9) % Plt Count 154 (140-400) K/mcL Neutrophils # 2.2 (1.6-8.9) K/mcL BMP 02/13/18 03:30 Sodium 146 H Potassium 3.9 Chloride 114 H Carbon Dioxide 24 BUN 41 H Creatinine 1.88 H Glucose 93 Calcium 8.7 - ABG Interpretation ABG results: PT/INR, D-dimer PT 10.2 Seconds (9.4-12.1) 02/12/18 07:10 Consult Discharge Plan - Plan Referrals: Tanner Renteria, PAC [Primary Care Provider] -
[2018-02-14] MEDS: Insulin LISPRO 300 UNITS/3 ML VIAL SQ SCH ×3 (07:53→18:07)
[2018-02-14] MEDS: Iron Polysaccharide Complex 150 MG CAPSULE PO SCH (08:01)
[2018-02-14] MEDS: Multivit/Ca/Min/Fe/FA 1 TAB TABLET PO SCH (08:01)
[2018-02-14] MEDS: OXcarbazepine 150 MG TABLET PO SCH ×2 (08:01→20:02)
[2018-02-14] MEDS: lamoTRIgine 25 MG TABLET PO SCH ×2 (08:02→20:02)
[2018-02-14] MEDS: hydrOXYzine pamoate 25 MG CAPSULE PO SCH ×2 (08:02→20:02)
[2018-02-14] MEDS ORDERED: Aminoglycoside Consult 1 EACH MC ONE (08:19)
[2018-02-14 09:29] LABS: Eosinophils # 0.2 K/mcL (0.0-0.6); Eosinophils % 4.1 %; Immature Granulocytes % 0.3 % (0-4); Lymphocytes # 1.4 K/mcL (0.6-4.6); Lymphocytes % 36.7 %; Mean Corpuscular HGB Conc 33.3 g/dL (31.6-35.5); Mean Corpuscular Hemoglobin 30.1 pg (28.0-33.3); Mean Corpuscular Volume 90.3 fL (83.0-100.0); Mean Platelet Volume 10.2 fL (9.4-12.4); Monocytes # 0.4 K/mcL (0.0-1.3); Monocytes % 8.9 %; Neutrophils # 1.9 K/mcL (1.6-8.9); Platelet Count 151 K/mcL (140-400); Red Blood Count 2.99 M/mcL (3.82-4.97); Red Cell Distribution Width 12.8 % (11.5-14.5)
[2018-02-14 09:52] LABS: Albumin 3.3 g/dL (3.5-5.7); Albumin/Globulin Ratio 1.5 (1.1-2.2); Bilirubin,Total 0.4 mg/dL (0.3-1.0); Globulin 2.2 g/dL (2.4-3.5); Potassium 4.5 mEq/L (3.5-5.1); Total Protein 5.5 g/dL (6.4-8.9)
[2018-02-14] MEDS: *HR* Heparin 5,000 UNIT/ML VIAL SQ SCH ×2 (10:19→18:08)
[2018-02-14] MEDS ORDERED: Insulin LISPRO 300 UNITS/3 ML VIAL SQ SCH (11:18)
--- NOTE | 2018-02-14 15:32 | Internal Med Progress Note ---
Date of Encounter: 02/14/18 Time of Encounter: 12:00 - Assessment and plan (1) Hypoglycemia Current Visit: Yes Status: Resolved Assessment and plan: hypoglycemic on admission, reports compliant with insulin regimen BS had been sporadic with very minimal sliding scale coverage. BS has been ranging from 100-300s but can go as low as 40 and high as 500. Endocrine consulted. Cautious with giving insulin at this time but may need a small dose of long acting insulin, should not cause an acute drop in BS. A1c 7.3 (2) Acute kidney injury superimposed on chronic kidney disease Current Visit: Yes Status: Acute Assessment and plan: JAKE 2/2 dehydration IVF support. Cr improved since admission but still elevated. monitor BMPs (3) UTI (urinary tract infection) Current Visit: Yes Status: Suspected Assessment and plan: Suspected UTI, however asymptomatic UA not a clean catch with many squamous epithelial cells Not likely UTI, will treat if patient develop symptoms Qualifiers: Urinary tract infection type: acute cystitis Hematuria presence: without hematuria Qualified Code(s): N30.00 - Acute cystitis without hematuria - Time Spent With Patient Total time spent is greater than 50% in coordination of care (as documented) at patient's floor/unit and/or counseling patient: - Subjective Interval history: Denies any complaints today, feels fine. Afraid of BS dropping too low and has expressed not wanting to take coverage sliding scale insulin. - Constitutional Vitals: Temp Pulse Resp BP Pulse Ox 98.4 F 82 16 128/73 99 02/14/18 11:06 02/14/18 11:06 02/14/18 11:06 02/14/18 11:06 02/14/18 11:06 General appearance: Present: A&O X 3, answers questions appropriately Exam: General: Alert and oriented. Somewhat lethargic with eyes mostly closed but is fully alert when communicating. Skin: Normal color, no rash, no lesions. HEENT: EOMI, pupils equal, round and reactive. Cardiovascular: Regular rate, regular rhythm. No murmurs appreciated. Lungs:Normal breath sounds, no wheezes or crackles. Abdomen:Soft, non-tender, no rigidity. Extremities:No deformity, no edema or tenderness, no joint swelling or clubbing. Neurological:Normal cognition, no weakness, no numbness. Internal Medicine: Result - Labs CBC & Chem 7: 02/14/18 09:11 02/14/18 09:11 - ABG Interpretation ABG results: PT/INR, D-dimer PT 10.2 Seconds (9.4-12.1) 02/12/18 07:10 Consult Discharge Plan - Plan Referrals: Tanner Renteria, PAC [Primary Care Provider] -
[2018-02-14] MEDS: Insulin DETEMIR 100 UNIT/ML X5UNITS SQ SCH (16:09)
[2018-02-15] MEDS: Insulin DETEMIR 100 UNIT/ML X5UNITS SQ SCH (01:21)
[2018-02-15] MEDS: *HR* Heparin 5,000 UNIT/ML VIAL SQ SCH (06:05)
[2018-02-15] MEDS: Multivit/Ca/Min/Fe/FA 1 TAB TABLET PO SCH (07:59)
[2018-02-15] MEDS: Iron Polysaccharide Complex 150 MG CAPSULE PO SCH (07:59)
[2018-02-15] MEDS: OXcarbazepine 150 MG TABLET PO SCH (07:59)
[2018-02-15] MEDS: hydrOXYzine pamoate 25 MG CAPSULE PO SCH (07:59)
[2018-02-15] MEDS: lamoTRIgine 25 MG TABLET PO SCH (07:59)
[2018-02-15] MEDS: Insulin LISPRO 300 UNITS/3 ML VIAL SQ SCH ×2 (08:00→11:42)
[2018-02-15 08:47] LABS: Basophils % 0.6 %; Eosinophils # 0.2 K/mcL (0.0-0.6); Eosinophils % 3.6 %; Hematocrit 28.6 % (35.3-44.9); Hemoglobin 9.7 g/dL (11.5-15.4); Immature Granulocytes % 0.2 % (0-4); Lymphocytes # 1.7 K/mcL (0.6-4.6); Lymphocytes % 36.7 %; Mean Corpuscular HGB Conc 33.9 g/dL (31.6-35.5); Mean Corpuscular Hemoglobin 29.8 pg (28.0-33.3); Mean Corpuscular Volume 87.7 fL (83.0-100.0); Mean Platelet Volume 10.7 fL (9.4-12.4); Monocytes # 0.4 K/mcL (0.0-1.3); Monocytes % 8.1 %; Neutrophils # 2.4 K/mcL (1.6-8.9); Platelet Count 170 K/mcL (140-400); Red Blood Count 3.26 M/mcL (3.82-4.97); Red Cell Distribution Width 12.3 % (11.5-14.5); Segmented Neutrophils % 50.8 %
[2018-02-15 09:11] LABS: Albumin 3.7 g/dL (3.5-5.7); Albumin/Globulin Ratio 1.4 (1.1-2.2); Bilirubin,Total 0.4 mg/dL (0.3-1.0); Calcium 9.5 mg/dL (8.6-10.3); Globulin 2.6 g/dL (2.4-3.5); Potassium 4.6 mEq/L (3.5-5.1); Total Protein 6.3 g/dL (6.4-8.9)
[2018-02-15] MEDS ORDERED: Insulin DETEMIR 100 UNIT/ML X5UNITS SQ SCH (09:45)
[2018-02-15 12:26] VITALS: BP 145/83
--- NOTE | 2018-02-15 17:38 | Discharge Summary ---
- NOTES TO OUTPATIENT PROVIDER Notes to Outpatient Provider: Patient left AMA prior to establishing good insulin/BS control. Please follow up. Date of Encounter: 02/15/18 Time of Encounter: 10:00 - Discharge Diagnosis (1) Hypoglycemia Priority: Primary Status: Resolved Assessment and Plan: hypoglycemic on admission, reports compliant with insulin regimen BS had been sporadic with very minimal sliding scale coverage. BS has been ranging from 100-300s but can go as low as 40 and high as 500. Hypoglycemia likely 2/2 JAKE with kidneys not clearing insulin and patient not eating. Has not had anymore hypoglycemic episodes now that kidney functions are recovering. Tried to give long acting insulin levemir yesterday to prevent rapid spikes but patient refused. Was able to give low dose Levemir this morning but patient signed out AMA prior to observing BS response. Will need to adjust regimen outpatient with PMD (2) Acute kidney injury superimposed on chronic kidney disease Priority: Secondary Status: Acute Assessment and Plan: JAKE 2/2 dehydration IVF support. Cr improved since admission (3) UTI (urinary tract infection) Priority: Secondary Status: Suspected Assessment and Plan: Suspected UTI, however asymptomatic UA not a clean catch with many squamous epithelial cells Qualifiers: Urinary tract infection type: acute cystitis Hematuria presence: without hematuria Qualified Code(s): N30.00 - Acute cystitis without hematuria Hospital course: Ms. Kuhn is a 53 year old female with PMH DM on insulin and substance abuse presented to the ED after having episodes of hypoglycemia. BS very erratic while in patient likely because of JAKE not allowing insulin to clear. Hypoglycemia had improved but patient was refusing insulin with fear of becoming hypoglycemic again. Finally allowed nurse to give Levemir this morning however left AMA before response can be assessed. I was not able to speak to patient after being notified that she was leaving AMA as she already left by the time I returned. Discharge discussed with: nurse - Time Spent with Patient Total time spent providing and/or coordinating discharge services: - Discharge Medications Home Medications: Calcitriol [Rocaltrol] 0.25 mcg PO MOWEFR 11/11/17 [History] Insulin Degludec [Tresiba Flextouch U-100] 20 unit SQ QAM 11/11/17 [History] Iron Polysaccharide Complex [Pro Fe] 180 mg PO QAM 11/11/17 [History] Multivit-Minerals/Folic Acid [Adult Multi Gummies] 200 mcg PO DAILY 11/11/17 [ History] Sertraline [Zoloft] 25 mg PO DAILY 11/11/17 [History] lamoTRIgine [Lamictal] 25 mg PO BID 11/27/17 [History] DiphenhydraMINE [Benadryl] 25 mg PO HS 11/28/17 [History] OXcarbazepine [Trileptal] 300 mg PO BID 11/28/17 [History] hydrOXYzine pamoate [HydrOXYzine Pamoate] 25 mg PO BID 11/28/17 [History] Cyclobenzaprine [Flexeril] 10 mg PO TID PRN 02/12/18 [History] Allergies/Adverse Reactions: 3 Allergy/AdvReac Type Severity Reaction Status Date / Time No Known Allergies Allergy Verified 11/27/17 18:07 Date of admission: 02/14/18 10:53 Primary care physician: Tanner Renteria - Constitutional Vitals: Temp Pulse Resp BP Pulse Ox 97.6 F 84 18 145/83 98 02/15/18 12:24 02/15/18 12:24 02/15/18 12:24 02/15/18 12:24 02/15/18 12:24 General appearance: Present: A&O X 3, answers questions appropriately Exam: General: Alert and oriented. More energetic today. Skin: Normal color, no rash, no lesions. HEENT: EOMI, pupils equal, round and reactive. Cardiovascular: Regular rate, regular rhythm. No murmurs appreciated. Lungs:Normal breath sounds, no wheezes or crackles. Abdomen:Soft, non-tender, no rigidity. Extremities:No deformity, no edema or tenderness, no joint swelling or clubbing. Neurological:Normal cognition, no weakness, no numbness. - Patient Status Disposition: Left Against Medical Advice Overall status at discharge: patient is progressing back to baseline - Discharge Instructions Follow Up With: Tanner Renteria PAC [Primary Care Provider] - - Diet and Activity Activity: resume usual activities as tolerated
== END 2018-02-15 15:20 | disposition left against medical advice (07) | DRG 682 ==
LOC: 2ANU 06:42 → EMEROO 06:42 → 2ANU 12:00 → SUATTDRO 02-14 10:53
PROVIDERS: ADMIT Internal Medicine; ATTEND Student in an Organized Health Care Education/Training Program

== ENCOUNTER 2019-02-28 13:56 | Observation (INO) ==
[2019-02-28] MEDS ORDERED: 0.9 % Sodium Chloride 2,000 ML ONE (14:13)
[2019-02-28] MEDS: 0.9 % Sodium Chloride 1,000 ML IVC SCH ×3 (14:15→19:01)
--- NOTE | 2019-02-28 14:21 | Emergency Department Note ---
Disposition Clinical Impression: Hyperglycemic crisis in diabetes mellitus, Hyperkalemia CKD (chronic kidney disease) Qualifiers: Chronic kidney disease stage: unspecified stage Qualified Code(s): N18.9 - Chronic kidney disease, unspecified Disposition: Admitted As Inpatient Condition: Fair Forms: ED Satisfaction Letter, Work/School Release Time of Disposition: 17:13 General Adult HPI - General Chief complaint: ED General Medical Stated complaint: hyperglycemia Time Seen by Provider: 02/28/19 14:06 - History of Present Illness Pain Scale: 0 - Related Data Home Medications Medication Instructions Recorded Confirmed Calcitriol [Rocaltrol] 0.25 mcg PO MOWEFR 11/11/17 02/12/18 Insulin Degludec [Tresiba 20 unit SQ QAM 11/11/17 02/12/18 Flextouch U-100] Iron Polysaccharide Complex [Pro 180 mg PO QAM 11/11/17 02/12/18 Fe] Multivit-Minerals/Folic Acid 200 mcg PO DAILY 11/11/17 02/12/18 [Adult Multi Gummies] Sertraline [Zoloft] 25 mg PO DAILY 11/11/17 02/12/18 lamoTRIgine [Lamictal] 25 mg PO BID 11/27/17 02/12/18 DiphenhydraMINE [Benadryl] 25 mg PO HS 11/28/17 02/12/18 OXcarbazepine [Trileptal] 300 mg PO BID 11/28/17 02/12/18 hydrOXYzine pamoate [Vistaril] 25 mg PO BID 11/28/17 02/12/18 Cyclobenzaprine [Flexeril] 10 mg PO TID PRN 02/12/18 02/12/18 Previous Rx's Medication Instructions Recorded Cephalexin [Keflex] 500 mg PO BID #14 capsule 01/20/19 Allergies Allergy/AdvReac Type Severity Reaction Status Date / Time No Known Allergies Allergy Verified 11/27/17 18:07 Past Medical History - Past Medical History Medical history: Reports: diabetes, renal disease, other Surgical history: Reports: no surgical history Psychiatric history: Reports: bipolar, depression 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 - Social History Smoking Status: Never smoker Smokeless Tobacco Status: No Alcohol use: Reports: none Drug use: Reports: cocaine, IV Drug Use, other Physical Exam - General General appearance: alert, in no apparent distress Course Vital Signs Temperature 98.0 F 02/28/19 14:02 Pulse Rate 62 02/28/19 14:02 Respiratory Rate 18 02/28/19 14:02 Blood Pressure 108/75 02/28/19 14:02 O2 Sat by Pulse Oximetry 100 02/28/19 14:02 Temperature 98.0 F 02/28/19 14:02 Pulse Rate 62 02/28/19 14:02 Respiratory Rate 18 02/28/19 14:02 Blood Pressure 108/75 02/28/19 14:02 O2 Sat by Pulse Oximetry 100 02/28/19 14:02 Oxygen Delivery Oxygen Delivery Room Air Medical Decision Making - Lab Data Lab results reviewed: Yes I reviewed the patient's lab results. Result diagrams: 02/28/19 14:13 02/28/19 14:13 Lab Results 02/28/19 02/28/19 02/28/19 Range/Units 14:13 14:13 14:13 WBC 3.7 L (4.3-11.1) K/mcL RBC 3.83 (3.82-4.97) M/mcL Hgb 11.2 L (11.5-15.4) g/dL Hct 34.3 L (35.3-44.9) % MCV 89.6 (83.0-100.0) fL MCH 29.2 (28.0-33.3) pg MCHC 32.7 (31.6-35.5) g/dL RDW 12.0 (11.5-14.5) % Plt Count 156 (140-400) K/mcL MPV 11.3 (9.4-12.4) fL Immature Gran % 0.0 (0-4) % Seg Neutrophils % 73.4 % Lymphocytes % 18.0 % Monocytes % 6.7 % Eosinophils % 1.1 % Basophils % 0.8 % Neutrophils # 2.7 (1.6-8.9) K/mcL Lymphocytes # 0.7 (0.6-4.6) K/mcL Monocytes # 0.3 (0.0-1.3) K/mcL Eosinophils # 0.0 (0.0-0.6) K/mcL Basophils # 0.0 (0.0-0.2) K/mcL VBG pH (7.32-7.42) pH Units VBG pCO2 (41-51) mmHg VBG pO2 (25-50) mmHg VBG HCO3 (21-27) mEq/L Sodium 124 L (136-145) mEq/L Potassium 5.9 H (3.5-5.1) mEq/L Chloride 87 L (98-107) mEq/L Carbon Dioxide 29 (23-29) mEq/L BUN 55 H (6-20) mg/dL Creatinine 2.45 H (0.60-1.20) mg/dL Est GFR ( Amer) 25 L (> 60) Est GFR (Non-Af Amer) 20 L (> 60) BUN/Creatinine Ratio 22 (6-26) Glucose 821 H* (70-105) mg/dL Calculated Osmolality 313 H (280-300) Calcium 10.1 (8.6-10.3) mg/dL Beta-Hydroxybutyric Acd 0.15 (0.02-0.27) mmol/L Urine Color (Yellow) Urine Clarity (Clear) Urine pH (5.0-8.0) pH Units Ur Specific [place] (1.010-1.025) Urine Protein (Neg-Trace) mg/dL Urine Glucose (UA) (Normal) mg/dL Urine Ketones (Negative) mg/dL Urine Blood (Negative) Urine Nitrite (Negative) Urine Bilirubin (Negative) Urine Urobilinogen (Normal) mg/dL Ur Leukocyte Esterase (Negative) Urine Microscopic RBC (0-3) per hpf Urine Microscopic WBC (0-3) per hpf Ur Squamous Epith Cells (None-Few) per lpf Urine Bacteria (None-Few) per hpf Hyaline Casts (None-Few) per lpf Urine Yeast (None Seen) per hpf Ur Culture Indicated? (NO) 02/28/19 02/28/19 Range/Units 14:26 16:00 WBC (4.3-11.1) K/mcL RBC (3.82-4.97) M/mcL Hgb (11.5-15.4) g/dL Hct (35.3-44.9) % MCV (83.0-100.0) fL MCH (28.0-33.3) pg MCHC (31.6-35.5) g/dL RDW (11.5-14.5) % Plt Count (140-400) K/mcL MPV (9.4-12.4) fL Immature Gran % (0-4) % Seg Neutrophils % % Lymphocytes % % Monocytes % % Eosinophils % % Basophils % % Neutrophils # (1.6-8.9) K/mcL Lymphocytes # (0.6-4.6) K/mcL Monocytes # (0.0-1.3) K/mcL Eosinophils # (0.0-0.6) K/mcL Basophils # (0.0-0.2) K/mcL VBG pH 7.35 (7.32-7.42) pH Units VBG pCO2 51 (41-51) mmHg VBG pO2 80 H (25-50) mmHg VBG HCO3 28 H (21-27) mEq/L Sodium (136-145) mEq/L Potassium (3.5-5.1) mEq/L Chloride (98-107) mEq/L Carbon Dioxide (23-29) mEq/L BUN (6-20) mg/dL Creatinine (0.60-1.20) mg/dL Est GFR ( Amer) (> 60) Est GFR (Non-Af Amer) (> 60) BUN/Creatinine Ratio (6-26) Glucose (70-105) mg/dL Calculated Osmolality (280-300) Calcium (8.6-10.3) mg/dL Beta-Hydroxybutyric Acd (0.02-0.27) mmol/L Urine Color Yellow (Yellow) Urine Clarity Clear (Clear) Urine pH 6.5 (5.0-8.0) pH Units Ur Specific [place] 1.017 (1.010-1.025) Urine Protein Negative (Neg-Trace) mg/dL Urine Glucose (UA) >=1000 H (Normal) mg/dL Urine Ketones Negative (Negative) mg/dL Urine Blood Trace H (Negative) Urine Nitrite Negative (Negative) Urine Bilirubin Negative (Negative) Urine Urobilinogen Normal (Normal) mg/dL Ur Leukocyte Esterase Moderate H (Negative) Urine Microscopic RBC 0-3 (0-3) per hpf Urine Microscopic WBC 50-100 H (0-3) per hpf Ur Squamous Epith Cells Many H (None-Few) per lpf Urine Bacteria None Seen (None-Few) per hpf Hyaline Casts None Seen (None-Few) per lpf Urine Yeast Few H (None Seen) per hpf Ur Culture Indicated? YES A (NO) - Radiology Data Radiology results reviewed: Yes I reviewed the patient's radiology results. Chest X-Ray 02/28/19 14:06 IMPRESSION: Normal chest. D/ / Srinath Tellez MD / Srinath Tellez MD Interpreting Provider: Srinath Tellez MD Critical Care Time Critical Care Time: Yes Total Critical Care Time: 35 Attestation: Critical care time not including separable billable procedures of 35 minutes given the patient's abnormal metabolic panel including a glucose greater than 800 in conjunction with a potassium level of 5.9 necessitating IV infusion treatment and management in conjunction with coordination of admission. Attestation Statement - Attestation Attestation: I, Remy Castro.Sam, examined this patient and my medical decision-making was reviewed with the Resident Physician. I agree with the documented findings, disposition and treatment plan as described except to the extent set forth below. Face to face time provided. This is a 54-year-old female with a history of chronic kidney disease, stage IV followed by nephrology, insulin dependent diabetes who presents to the ER via EMS with a complaint of hyperglycemia. Patient states she ran out of her insulin on Monday due to financial issues. States that she checked her glucose today and it was high. She denies any recent vomiting or abdominal pain. She did feel nauseous today. No dysuria or hematuria. No cough. She states she was admitted to the ICU once before for her diabetes but that was many years ago. She was planning on going to the grocery store today but was not feeling well for home. No other complaints. General: Alert, no acute distress HENT: Normocephalic, Atraumatic Neck: No JVD Cardiovascular: Regular rate and rhythm. No appreciable murmurs Respiratory: Lungs CTAB. No wheezing/rhonchi Abdominal: Soft, non tender. No peritoneal findings Extremities: No peripheral edema Neuro: Alert, Mentating appropriately, No focal deficits Skin: Warm, Dry Plan: Patient is well-appearing here. Suspicion is low for DKA. Glucose checked at bedside just retired. Plan for labs to evaluate for potential DKA, IV fluids, disposition. ED Procedure Note: EKG interpretation - I agree with the resident physician's d ocumentation and interpretation of the patient's EKG. Demonstrates sinus rhythm with a rate of 60 beats or minute. Normal axis. Normal intervals. Normal R-wave progression. J-point elevations in the anterior leads. No depressions. No acute ischemic findings. Labs reviewed. She does have a glucose of over 800. She also is hyperkalemic at 5.9. No EKG changes. Plan to start an insulin drip, continue IV fluid resuscitation and treatment for HHN. Patient to be admitted to the hospitalist service.
--- NOTE | 2019-02-28 14:23 | Emergency Department Note ---
Disposition Clinical Impression: Hyperglycemic crisis in diabetes mellitus, Hyperkalemia CKD (chronic kidney disease) Qualifiers: Chronic kidney disease stage: unspecified stage Qualified Code(s): N18.9 - Chronic kidney disease, unspecified Disposition: Admitted As Inpatient Condition: Fair Time of Disposition: 16:00 General Adult HPI - General Chief complaint: ED General Medical Stated complaint: hyperglycemia Time Seen by Provider: 02/28/19 14:06 Source: patient, EMS Mode of arrival: EMS Limitations: no limitations Nursing Notes Reviewed: Yes Vital Signs Reviewed: Yes - History of Present Illness HPI Narrative: 54-year-old female that presents with complaints for hyperglycemia as well as shortness of breath but just started over the last day or so. Patient states she ran out of her long-acting insulin and the last time she had any was this past Monday when she took a half dose. She states she took 10 units of the long-acting and she supposed to take 20 units. She notes she was out of insulin due to financial concerns. Patient states she was walking to the grocery store today when she started to feel very overheated and short of breath. When she got home she noted that her glucometer was just reading "high". Patient called EMS who brought her here. Patient notes previous admissions for diabetes, as well as ICU admissions. Patient also notes that she has chronic kidney disease stage IV, but notes that she does still make urine. Patient's kidney disease is managed by Dr. Winkler. Patient notes she was recently diagnosed with UTI and started on Keflex, although she notes she was not able to start the Keflex until a week later. Patient no she finished the Keflex this Monday. She does not have any urinary concerns at this time. Pain Scale: 0 - Related Data Home Medications Medication Instructions Recorded Confirmed Calcitriol [Rocaltrol] 0.25 mcg PO MOWEFR 11/11/17 02/28/19 Insulin Degludec [Tresiba 20 unit SQ QAM 11/11/17 02/28/19 Flextouch U-100] Iron Polysaccharide Complex [Pro 180 mg PO QAM 11/11/17 02/28/19 Fe] Multivit-Minerals/Folic Acid 200 mcg PO DAILY 11/11/17 02/28/19 [Adult Multi Gummies] Sertraline [Zoloft] 25 mg PO DAILY 11/11/17 02/12/18 lamoTRIgine [Lamictal] 25 mg PO BID 11/27/17 02/12/18 DiphenhydraMINE [Benadryl] 25 mg PO BID PRN 11/28/17 02/28/19 OXcarbazepine [Trileptal] 300 mg PO BID 11/28/17 02/12/18 hydrOXYzine pamoate [Vistaril] 25 mg PO PRN PRN 11/28/17 02/28/19 Cyclobenzaprine [Flexeril] 10 mg PO TID PRN 02/12/18 02/28/19 Previous Rx's Medication Instructions Recorded Cephalexin [Keflex] 500 mg PO BID #14 capsule 01/20/19 Allergies Allergy/AdvReac Type Severity Reaction Status Date / Time No Known Allergies Allergy Verified 11/27/17 18:07 Review of Systems: In addition to that documented in the HPI above, the additional ROS was ob tained: Constitutional: Denies fevers or chills Eyes: Denies vision changes ENMT: Denies sore throat CV: Denies chest pain Resp: Reports SOB GI: Denies vomiting or diarrhea Reports nausea : Denies painful urination MSK: Denies recent trauma Skin: Denies new rashes Neuro: Denies new numbness or tingling or weakness Endocrine: Denies unexpected weight loss Heme: Denies bleeding disorders Past Medical History - Past Medical History Attestation: Yes The following information was validated with the patient. 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 No acute distress. Thin female. Head: atraumatic, normocephalic. ENT: No conjunctival injection, no scleral icterus. PERRLA. EOMI. Oropharynx non- erythematous. mucous membranes moist. Neuro: No focal deficits, no speech deficit, no facial droop, mentating well. BUE/BLE Str 5/5. Pulm: Lungs CTAB A/P. No wheezes, rales, ronchi. Cardio: RRR no m/r/g. Chest not tender to palpation. Abd: Soft, non-distended. Normoactive bowel sounds. Non-tender to palpation. No guarding. Non rigid. Extremities: Radial pulses 2+ jessica, dorsalis pedis/posterior tibialis 2+ jessica. No LE edema. No cyanosis, clubbing. Skin: warm, dry, intact. No rashes. Psych: Appropriate mood and affect. Answers questions appropriately. Cooperative with exam. - General General appearance: alert, in no apparent distress Course Vital Signs Temperature 98.0 F 02/28/19 14:02 Pulse Rate 62 02/28/19 14:02 Respiratory Rate 18 02/28/19 14:02 Blood Pressure 108/75 02/28/19 14:02 O2 Sat by Pulse Oximetry 100 02/28/19 14:02 Temperature 97.7 F 02/28/19 18:28 Pulse Rate 65 02/28/19 20:41 Respiratory Rate 02/28/19 18:28 Blood Pressure 91/67 02/28/19 18:28 O2 Sat by Pulse Oximetry 100 02/28/19 18:28 Oxygen Delivery Oxygen Delivery Room Air Medical Decision Making - MDM Narrative Medical decision making narrative: 54-year-old female that presents for concerns of hyperglycemia she has been out of her long-acting insulin for the last 4 days. Patient is sitting up on the cart talking in full sentences in no acute distress. She is breathing at a regular rate. Her initial vital signs are all within normal limits. She will be screened with laboratory evaluation including CBC, BMP, LFTs, beta hydroxybutyrate, VBG, EKG, chest x-ray, urinalysis. Initial bedside glucose both read high the first 2 times, BMP showed a glucose in excess of 800 with an osmolality in excess of 300. Patient was given 2 large-bore IVs, 3 L of fluid while in the department, started on an insulin drip. Initial potassium was 5.9, corrected sodium was 135. Patient was admitted to the hospitalist Dr. Chavez, who agreed to accept the patient to his service. Results of the workup including any imaging and/or labwork was shared with the patient at bedside. Patient was given an opportunity to ask questions at bedside and all of their concerns were addressed. Patient verbalized understanding and agreement with plan of care. Pt remained stable while in the department. - Medical Records Medical records reviewed: Yes I reviewed the patient's medical records. - Lab Data Lab results reviewed: Yes I reviewed the patient's lab results. Result diagrams: 02/28/19 14:13 02/28/19 18:32 Lab Results 02/28/19 02/28/19 02/28/19 Range/Units 14:13 14:13 14:13 WBC 3.7 L (4.3-11.1) K/mcL RBC 3.83 (3.82-4.97) M/mcL Hgb 11.2 L (11.5-15.4) g/dL Hct 34.3 L (35.3-44.9) % MCV 89.6 (83.0-100.0) fL MCH 29.2 (28.0-33.3) pg MCHC 32.7 (31.6-35.5) g/dL RDW 12.0 (11.5-14.5) % Plt Count 156 (140-400) K/mcL MPV 11.3 (9.4-12.4) fL Immature Gran % 0.0 (0-4) % Seg Neutrophils % 73.4 % Lymphocytes % 18.0 % Monocytes % 6.7 % Eosinophils % 1.1 % Basophils % 0.8 % Neutrophils # 2.7 (1.6-8.9) K/mcL Lymphocytes # 0.7 (0.6-4.6) K/mcL Monocytes # 0.3 (0.0-1.3) K/mcL Eosinophils # 0.0 (0.0-0.6) K/mcL Basophils # 0.0 (0.0-0.2) K/mcL VBG pH (7.32-7.42) pH Units VBG pCO2 (41-51) mmHg VBG pO2 (25-50) mmHg VBG HCO3 (21-27) mEq/L Sodium 124 L (136-145) mEq/L Potassium 5.9 H (3.5-5.1) mEq/L Chloride 87 L (98-107) mEq/L Carbon Dioxide 29 (23-29) mEq/L BUN 55 H (6-20) mg/dL Creatinine 2.45 H (0.60-1.20) mg/dL Est GFR ( Amer) 25 L (> 60) Est GFR (Non-Af Amer) 20 L (> 60) BUN/Creatinine Ratio 22 (6-26) Glucose 821 H* (70-105) mg/dL Calculated Osmolality 313 H (280-300) Calcium 10.1 (8.6-10.3) mg/dL Beta-Hydroxybutyric Acd 0.15 (0.02-0.27) mmol/L Urine Color (Yellow) Urine Clarity (Clear) Urine pH (5.0-8.0) pH Units Ur Specific [place] (1.010-1.025) Urine Protein (Neg-Trace) mg/dL Urine Glucose (UA) (Normal) mg/dL Urine Ketones (Negative) mg/dL Urine Blood (Negative) Urine Nitrite (Negative) Urine Bilirubin (Negative) Urine Urobilinogen (Normal) mg/dL Ur Leukocyte Esterase (Negative) Urine Microscopic RBC (0-3) per hpf Urine Microscopic WBC (0-3) per hpf Ur Squamous Epith Cells (None-Few) per lpf Urine Bacteria (None-Few) per hpf Hyaline Casts (None-Few) per lpf Urine Yeast (None Seen) per hpf Ur Culture Indicated? (NO) 02/28/19 02/28/19 Range/Units 14:26 16:00 WBC (4.3-11.1) K/mcL RBC (3.82-4.97) M/mcL Hgb (11.5-15.4) g/dL Hct (35.3-44.9) % MCV (83.0-100.0) fL MCH (28.0-33.3) pg MCHC (31.6-35.5) g/dL RDW (11.5-14.5) % Plt Count (140-400) K/mcL MPV (9.4-12.4) fL Immature Gran % (0-4) % Seg Neutrophils % % Lymphocytes % % Monocytes % % Eosinophils % % Basophils % % Neutrophils # (1.6-8.9) K/mcL Lymphocytes # (0.6-4.6) K/mcL Monocytes # (0.0-1.3) K/mcL Eosinophils # (0.0-0.6) K/mcL Basophils # (0.0-0.2) K/mcL VBG pH 7.35 (7.32-7.42) pH Units VBG pCO2 51 (41-51) mmHg VBG pO2 80 H (25-50) mmHg VBG HCO3 28 H (21-27) mEq/L Sodium (136-145) mEq/L Potassium (3.5-5.1) mEq/L Chloride (98-107) mEq/L Carbon Dioxide (23-29) mEq/L BUN (6-20) mg/dL Creatinine (0.60-1.20) mg/dL Est GFR ( Amer) (> 60) Est GFR (Non-Af Amer) (> 60) BUN/Creatinine Ratio (6-26) Glucose (70-105) mg/dL Calculated Osmolality (280-300) Calcium (8.6-10.3) mg/dL Beta-Hydroxybutyric Acd (0.02-0.27) mmol/L Urine Color Yellow (Yellow) Urine Clarity Clear (Clear) Urine pH 6.5 (5.0-8.0) pH Units Ur Specific [place] 1.017 (1.010-1.025) Urine Protein Negative (Neg-Trace) mg/dL Urine Glucose (UA) >=1000 H (Normal) mg/dL Urine Ketones Negative (Negative) mg/dL Urine Blood Trace H (Negative) Urine Nitrite Negative (Negative) Urine Bilirubin Negative (Negative) Urine Urobilinogen Normal (Normal) mg/dL Ur Leukocyte Esterase Moderate H (Negative) Urine Microscopic RBC 0-3 (0-3) per hpf Urine Microscopic WBC 50-100 H (0-3) per hpf Ur Squamous Epith Cells Many H (None-Few) per lpf Urine Bacteria None Seen (None-Few) per hpf Hyaline Casts None Seen (None-Few) per lpf Urine Yeast Few H (None Seen) per hpf Ur Culture Indicated? YES A (NO) - Radiology Data Radiology results reviewed: Yes I reviewed the patient's radiology results. Chest X-Ray 02/28/19 14:06 IMPRESSION: Normal chest. D/ / 02/28/2019 14:22:50 Srinath Tellez MD / [email or web address] Interpreting Provider: Srinath Tellez MD - EKG Data EKG #1 EKG attestation: Yes I reviewed and interpreted this EKG. EKG results narrative: Heart rate 60, rhythm sinus, axis normal. Intervals within normal limits. Less than [address] elevation in leads V2 and V3 without reciprocal depressions. Patient has no chest pain during examination. No old EKG available for comparison. Attestation Statement - Attestation Attestation: I, Ravinder Patton D.O., examined this patient and my medical decision-making was reviewed with the Resident Physician. I agree with the documented findings, disposition and treatment plan as described except to the extent set forth below. Face to face time provided.
[2019-02-28 14:27] LABS: Basophils % 0.8 %; Eosinophils % 1.1 %; Hematocrit 34.3 % (35.3-44.9); Hemoglobin 11.2 g/dL (11.5-15.4); Lymphocytes # 0.7 K/mcL (0.6-4.6); Mean Corpuscular HGB Conc 32.7 g/dL (31.6-35.5); Mean Corpuscular Hemoglobin 29.2 pg (28.0-33.3); Mean Corpuscular Volume 89.6 fL (83.0-100.0); Mean Platelet Volume 11.3 fL (9.4-12.4); Monocytes # 0.3 K/mcL (0.0-1.3); Monocytes % 6.7 %; Neutrophils # 2.7 K/mcL (1.6-8.9); Platelet Count 156 K/mcL (140-400); Red Blood Count 3.83 M/mcL (3.82-4.97); Segmented Neutrophils % 73.4 %; White Blood Count 3.7 K/mcL (4.3-11.1)
[2019-02-28 14:30] LABS: VBG HCO3 28 mEq/L (21-27); VBG PCO2 51 mmHg (41-51); VBG PH 7.35 pH Units (7.32-7.42); VBG PO2 80 mmHg (25-50)
[2019-02-28 15:26] LABS: Calcium 10.1 mg/dL (8.6-10.3); Potassium 5.9 mEq/L (3.5-5.1)
[2019-02-28] MEDS ORDERED: *HR* Dextrose 50 % in Water (Syg) 50 ML SYRINGE IVP PRN ×2 (15:47→17:40)
[2019-02-28] MEDS ORDERED: 0.9 % Sodium Chloride 1,000 ML IVC ONE (15:51)
[2019-02-28] MEDS ORDERED: Insulin Human Regular 100 UNIT in 0.9 % Sodium Chloride 100 ML IVC SCH (16:00)
[2019-02-28 16:26] LABS: Bilirubin,Urine Negative (Negative); Blood,Urine Trace (Negative); Clarity,Urine Clear (Clear); Color,Urine Yellow (Yellow); Glucose,Urine (UA) >=1000 mg/dL (Normal); Ketones,Urine Negative (Negative); Leukocyte Esterase,Urine Moderate (Negative); Nitrite,Urine Negative (Negative); PH,Urine 6.5 pH Units (5.0-8.0); Protein,Urine Negative (Neg-Trace); Specific Gravity,Urine 1.017 (1.010-1.025); Urobilinogen,Urine Normal (Normal)
[2019-02-28 16:28] LABS: Bacteria,Urine None Seen per hpf (None-Few); Hyaline Casts,Urine None Seen per lpf (None-Few); RBC,Urine 0-3 per hpf (0-3); Squamous Epithelial Cell,Urine Many per lpf (None-Few); WBC,Urine 50-100 per hpf (0-3)
[2019-02-28 16:54] LABS: Yeast,Urine Few per hpf (None Seen)
[2019-02-28] MEDS ORDERED: D5% in 0.45% NACL 1,000 ML IVC PRN (17:40)
[2019-02-28] MEDS ORDERED: D5% in 0.45% NACL w KCl 20 MEQ/1,000 ML MLS IVC PRN (17:40)
[2019-02-28] MEDS ORDERED: Naloxone 0.4 MG/ML INJ IVP PRN (17:45)
[2019-02-28] MEDS ORDERED: Ondansetron 4 MG/2 ML VIAL IVP PRN (17:45)
--- NOTE | 2019-02-28 17:54 | Internal Med History&Physical ---
Date of Encounter: 02/28/19 Time of Encounter: 17:00 Internal Medicine - H&P: HPI Chief complaint: Hyperglycemia Admitted From: Emergency Dept Plans for Post Hospital Care: Home History of present illness: Ms. Kuhn is a 54 year old female with a past medical history of insulin- dependent diabetes mellitus, presented to the hospital because of the hyperglycemia. Patient ran out of her long-acting insulin last Monday as she did not have the money to buy the new insulin. Today, when the patient was going for the grocery store she felt short of breath and weak. When she went home, checked her blood glucose levels as high on the glucometer. Patient called the EMS and was brought to 90. Patient denies fever, chills, rigors. Patient denied dysuria, nature, nocturia. Patient denies diarrhea, constipation. Patient denies chest pain, shortness of breath. Patient was hemodynamically stable in the ED. Laboratory workup showed the baby to count of 3.7, normal pH, sodium of 124, potassium of 5.9, creatinine of 2.45, blood glucose levels of 821, beta- hydroybutyric acid level of 0.15. UA showed moderate leukocyte esterase activity. Patient was started on IV fluids, IV insulin and was admitted for further management. Past Med Surg Social Fam HX - Past Medical History Medical history: diabetes, hepatitis, renal disease, other Additional medical history: CKD Psychiatric history: bipolar, depression - Past Surgical History Surgical History: no surgical history - Social History Smoking Status: Never smoker Smokeless Tobacco Status: No Alcohol use: none Drug use: cocaine, IV Drug Use, other - Family History Father Living Status: Still Living Hx Family Cardiac Disorders: No Internal Medicine - H&P: Meds Calcitriol [Rocaltrol] 0.25 mcg PO MOWEFR 11/11/17 [History] Insulin Degludec [Tresiba Flextouch U-100] 20 unit SQ QAM 11/11/17 [History] Iron Polysaccharide Complex [Pro Fe] 180 mg PO QAM 11/11/17 [History] Multivit-Minerals/Folic Acid [Adult Multi Gummies] 200 mcg PO DAILY 11/11/17 [History] Sertraline [Zoloft] 25 mg PO DAILY 11/11/17 [History] lamoTRIgine [Lamictal] 25 mg PO BID 11/27/17 [History] DiphenhydraMINE [Benadryl] 25 mg PO HS 11/28/17 [History] OXcarbazepine [Trileptal] 300 mg PO BID 11/28/17 [History] hydrOXYzine pamoate [Vistaril] 25 mg PO BID 11/28/17 [History] Cyclobenzaprine [Flexeril] 10 mg PO TID PRN 02/12/18 [History] Cephalexin [Keflex] 500 mg PO BID #14 capsule 01/20/19 [Rx] Allergy/AdvReac Type Severity Reaction Status Date / Time No Known Allergies Allergy Verified 11/27/17 18:07 All Systems PM: A 10-system review of systems was performed and is negative for pertinent findings except as documented above in the HPI. Review of systems: General: Negative for fever, chills, rigors. HEENT: Negative for swelling, discharge from nose, discharge from ears. EYES: Negative for any discharge from the eyes. Respiratory: Negative for shortness of breath, orthopnea, exertional dyspnea. Cardiovascular: Negative for chest pain, shortness of breath, orthopnea, PND. Gastrintestical: Negative for diarrhea, constipation, blood in stools. Genitourinary: Negative for dysuria, hematuria, nocturia, increased frequency of urine. Hematological: Negative for blood loss, negative for active cancer. Neurological: Negative for headache, dizziness, blurry vision, loss os power and sensations. Endocrinology: See HPI Psychiatric: Negative for anxiety or depression. - Constitutional Vitals: Temp Pulse Resp BP Pulse Ox 98.0 F 62 18 108/75 100 02/28/19 14:02 02/28/19 14:02 02/28/19 14:02 02/28/19 14:02 02/28/19 14:02 Exam: General: Alert and oriented, no physical distress, able to follow commands. HEENT: No thyromegaly, no lymphadenopathy, no discharge. Eyes: No discharge. Respiratory: Normal vesicular breathing, no added sounds, breathing equal in both sides. CVS: Normal heart sounds, no murmurs, no edema. Extremities: No peripheral edema, peripheral pulses intact. Lymph nodes: No lymphadenopathy Gastrointestinal: Soft, nontender abdomen, normal abdominal sounds. No distention noted. Genitourinary: No paravertebral tenderness. Neurological: Alert and oriented. No focal deficits. Cranial nerves II-XII intact. Internal Med - H&P Results - Labs CBC & Chem 7: 02/28/19 14:13 02/28/19 14:13 Labs: Short CBC 02/28/19 Range/Units 14:13 WBC 3.7 L (4.3-11.1) K/mcL Hgb 11.2 L (11.5-15.4) g/dL Hct 34.3 L (35.3-44.9) % Plt Count 156 (140-400) K/mcL Neutrophils # 2.7 (1.6-8.9) K/mcL BMP 02/28/19 14:13 Sodium 124 L Potassium 5.9 H Chloride 87 L Carbon Dioxide 29 BUN 55 H Creatinine 2.45 H Glucose 821 H* Calcium 10.1 Urine 02/28/19 Range/Units 16:00 Urine Color Yellow (Yellow) Urine Clarity Clear (Clear) Urine pH 6.5 (5.0-8.0) pH Units Ur Specific [place] 1.017 (1.010-1.025) Urine Protein Negative (Neg-Trace) mg/dL Urine Glucose (UA) >=1000 H (Normal) mg/dL - ABG Interpretation ABG results: 02/28/19 14:26 VBG pH 7.35 VBG pCO2 51 VBG pO2 80 H VBG HCO3 28 H - Impressions ITS Impressions Chest X-Ray 02/28/19 14:06 IMPRESSION: Normal chest. D/ / 02/28/2019 14:22:50 [facility]rinath [facility]elle[facility] Interpreting Provider: Srinath Tellez MD - Assessment and Plan (1) Diabetic hyperosmolar non-ketotic state Current Visit: Yes Status: Acute Assessment and plan: Likely etiology noncompliance. Patient most recent blood glucose level is 502. Currently on IV insulin and IV normal saline. Plan: Continue the IV insulin drip as per protocol. Continue IV normal saline. Recheck the patient labs We will start the patient on potassium containing IV fluids if the potassium levels get low -Start on subcutaneous insulin once the patient blood glucose levels get below 200, with the transition to call consistent diet. Stop the IV drip at that point. BMP every 3 hours. Blood glucose check every hour. 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 pharmacy consult. -ALthough UA is positve, pt is asymtomatic, we will hold offf on antibiotics, pending cultre results (2) DVT prophylaxis Current Visit: Yes Status: Acute Assessment and plan: -Subq insulin (3) Hyperkalemia Current Visit: Yes Status: Acute Assessment and plan: -Likely in context of HHS -COntinue to minotor (4) Stage 3 chronic kidney disease due to type 2 diabetes mellitus Current Visit: No Status: Chronic Assessment and plan: -Has outpatient follow up with nephrology -Jean-Paul 2/2 diabetes (5) JAKE (acute kidney injury) Current Visit: No Status: Resolved Assessment and plan: -Dehydration secondary to hyperglycemia -Curnt cr is 2.45, baseline is 1.94 -COntinue the IV fludis -Repat BMP tomorrow morning -Avoid nephrotixins (6) Hyponatremia Current Visit: No Status: Resolved Assessment and plan: Likely psuedohyponatrmia in context of elevated blood glucose levels -Repat electrolytes - Time Spent With Patient Total time spent is greater than 50% in coordination of care (as documented) at patient's floor/unit and/or counseling patient:
[2019-02-28 19:01] LABS: Potassium 4.9 mEq/L (3.5-5.1)
[2019-02-28] MEDS: *HR* Heparin 5,000 UNIT/ML VIAL SQ SCH (19:02)
[2019-02-28 22:03] LABS: Potassium 4.9 mEq/L (3.5-5.1)
[2019-02-28] MEDS ORDERED: Insulin DETEMIR 100 UNIT/ML X5UNITS SQ ONE (22:58)
[2019-03-01] MEDS ORDERED: hydrOXYzine pamoate 25 MG CAPSULE PO PRN (03:08)
[2019-03-01] MEDS: 0.9 % Sodium Chloride 1,000 ML IVC SCH ×2 (05:17→08:46)
[2019-03-01] MEDS: *HR* Heparin 5,000 UNIT/ML VIAL SQ SCH (05:29)
[2019-03-01 05:36] LABS: Basophils % 0.6 %; Eosinophils # 0.2 K/mcL (0.0-0.6); Eosinophils % 3.2 %; Hemoglobin 10.2 g/dL (11.5-15.4); Immature Granulocytes % 0.4 % (0-4); Lymphocytes # 1.6 K/mcL (0.6-4.6); Lymphocytes % 32.6 %; Mean Corpuscular HGB Conc 32.9 g/dL (31.6-35.5); Mean Corpuscular Hemoglobin 29.1 pg (28.0-33.3); Mean Corpuscular Volume 88.6 fL (83.0-100.0); Mean Platelet Volume 10.8 fL (9.4-12.4); Monocytes # 0.4 K/mcL (0.0-1.3); Monocytes % 7.6 %; Neutrophils # 2.8 K/mcL (1.6-8.9); Platelet Count 158 K/mcL (140-400); Red Cell Distribution Width 12.4 % (11.5-14.5); Segmented Neutrophils % 55.6 %
[2019-03-01 05:54] LABS: Magnesium 1.5 mg/dL (1.6-2.6); Phosphorous 2.6 mg/dL (2.7-4.5)
[2019-03-01 05:55] LABS: Calcium 9.4 mg/dL (8.6-10.3); Potassium 4.1 mEq/L (3.5-5.1)
[2019-03-01] MEDS ORDERED: Dextrose Gel 15 GM/37.5 ML TUBE PO PRN ×2 (06:23)
[2019-03-01] MEDS ORDERED: D5% in Water 1,000 ML IVC PRN (06:23)
[2019-03-01] MEDS: Insulin LISPRO 300 UNITS/3 ML VIAL SQ SCH ×2 (08:46→11:27)
[2019-03-01 09:01] LABS: Estimated Average Glucose 275 mg/dl
--- NOTE | 2019-03-01 10:12 | Discharge Summary ---
- NOTES TO OUTPATIENT PROVIDER Notes to Outpatient Provider: Will need close follow-up for diabetes control and for her chronic kidney disease with nephrology. Will need follow up bmp for renal function in 7-10 days Orders not resulted at time of discharge: Pending orders 02/28/19 14:13 ECG 12 lead ECG [ECG] Stat 02/28/19 16:00 Culture,Urine [RM] Stat Date of Encounter: 03/01/19 Time of Encounter: 10:11 - Discharge Diagnosis (1) Hyponatremia Priority: Secondary Status: Resolved (2) Stage 3 chronic kidney disease due to type 2 diabetes mellitus Priority: Secondary Status: Chronic (3) JAKE (acute kidney injury) Priority: Primary Status: Resolved (4) Hyperkalemia Priority: Secondary Status: Acute (5) Diabetic hyperosmolar non-ketotic state Priority: Primary Status: Acute (6) DVT prophylaxis Priority: Secondary Status: Acute Hospital course: Ms. Kuhn is a 54 year old female past medical history of insulin dependent diabetes, history of drug abuse, bipolar, depression, chronic kidney disease came in with complain of elevated blood sugars. Patient has ran out of her long-acting insulin tresiba. Patient was not in DKA and chest in a state of hyperglycemic hyperosmolar without defect on mental status associated with hyperkalemia and JAKE on CKD. She was started on IV fluids and insulin drip. Her renal function has improved and hypoglycemia normalized. She wishes to go home. She will need to follow up with PCP for BMP checked in 1 week. We will give a prescription for Tresiba. She was also using NovoLog before and has not filled since September. We will give one prescription for that with low intensity sliding scale. Discussed importance to how close follow-up with PCP and monitoring. She has supplies for monitoring her blood sugars at home and discussed to be complaint with insulin use. I asked to follow with PCP within 1-2 weeks. Also given a prescription for BMP checked within a week. I asked to keep herself rehydrated. Discharge discussed with: patient, nurse, social work - Time Spent with Patient Total time spent providing and/or coordinating discharge services: Time spent: Greater than 30 minutes (35) - Discharge Medications Prescriptions: New Insulin ASPART [Novolog Flexpen] See Protocol SQ TIDWM #1 Continued Iron Polysaccharide Complex [Pro Fe] 180 mg PO QAM Multivit-Minerals/Folic Acid [Adult Multi Gummies] 200 mcg PO DAILY hydrOXYzine pamoate [Vistaril] 25 mg PO TID PRN PRN Reason: Anxiety DiphenhydraMINE [Benadryl] 25 mg PO BID PRN PRN Reason: Anxiety Insulin Degludec [Tresiba Flextouch U-100] 30 unit SQ QAM #1 insuln.pen Home Medications: Iron Polysaccharide Complex [Pro Fe] 180 mg PO QAM 11/11/17 [History] Multivit-Minerals/Folic Acid [Adult Multi Gummies] 200 mcg PO DAILY 11/11/17 [History] DiphenhydraMINE [Benadryl] 25 mg PO BID PRN 11/28/17 [History] hydrOXYzine pamoate [Vistaril] 25 mg PO TID PRN 11/28/17 [History] Insulin ASPART [Novolog Flexpen] See Protocol SQ TIDWM #1 03/01/19 [Rx] Insulin Degludec [Tresiba Flextouch U-100] 30 unit SQ QAM #1 insuln.pen 03/01/19 [Rx] Allergies/Adverse Reactions: Allergy/AdvReac Type Severity Reaction Status Date / Time No Known Allergies Allergy Verified 11/27/17 18:07 Date of admission: 02/28/19 17:41 Primary care physician: PCP NONE Consults: 02/28/19 17:40 Consult for Pharmacy Education [CONS] Routine Reason for Consult: [facility] Call Completed: No 02/28/19 18:08 Consult to Advisory Internship [CONS] Routine Reason for Consult: Pt unable to afford insulin , preseneted with [facility] Discharging clinician: Pa Gutiérrezel - Constitutional Vitals: Temp Pulse Resp BP Pulse Ox 98.0 F 60 16 115/64 98 03/01/19 07:07 03/01/19 07:07 03/01/19 07:07 03/01/19 07:07 03/01/19 07:07 Exam: General: In no acute distress. Respiratory exam: CTAB. no accessory muscle use, rales, rhonchi, wheezes Cardiovascular exam: RRR, +S1, +S2. no murmur, gallop, rubs. GI/Abdominal exam: Non-tender, Non-distended, normal bowel sounds, soft, no peritoneal signs. Extremities exam: no pedal edema, pulses palpable in b/l lower extremities. no calf tenderness Neurological exam: CN II-XII intact, AO X3, no focal deficits. Skin exam: No skin rash - Patient Status Disposition: Home, Self-Care Condition: Fair - Discharge Instructions Follow Up With: Heather Lutz DO [Resident] - 03/08/19 2:00 pm (Please fill out the new patient packet that will be arriving in the mail and take with you to your appointment. Show up 15 mins. Early. Take with you to your appointment your INS. Cards, Picture ID, and a list of all medications including over the counter meds. If you need to cancel please call [phone] 24 hours prior to your appointment. This office does not give out controlled meds. If you do not receive your new patient packet in the mail please arrive 30 minutes early to your appointment to fill out your paper work.) Judith Alva, ASHKAN [Advanced Practice Nurse] - 03/04/19 10:00 am - Diet and Activity Activity: increase activity as tolerated
[2019-03-01 11:17] VITALS: BP 132/75
[2019-03-01] MEDS ORDERED: Insulin LISPRO 300 UNITS/3 ML VIAL SQ SCH (21:00)
--- NOTE | 2019-03-02 00:13 | Electrocardiograph Report ---
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
== END 2019-03-01 15:50 | disposition home or self-care (01) ==
LOC: 2NNU 13:56 → EMEROOARM 13:56 → SUATTDRO 17:41 → 2NNU 18:07
PROVIDERS: ADMIT Student in an Organized Health Care Education/Training Program; ATTEND Internal Medicine

== ENCOUNTER 2019-04-01 09:55 | Observation (INO) ==
[2019-04-01] MEDS ORDERED: 0.9 % Sodium Chloride 1,000 ML IVC ONE (10:26)
--- NOTE | 2019-04-01 11:08 | Emergency Department Note ---
Disposition Clinical Impression: Hyperglycemia, Insulin dependent diabetes mellitus Disposition: Admitted As Inpatient Time of Disposition: 14:00 General Adult HPI - General Chief complaint: ED General Medical Stated complaint: high blood glucose Time Seen by Provider: 04/01/19 10:21 Source: patient, EMS Limitations: no limitations Nursing Notes Reviewed: Yes Vital Signs Reviewed: Yes - History of Present Illness Pain Scale: 0 - Related Data Home Medications Medication Instructions Recorded Confirmed Iron Polysaccharide Complex [Pro 180 mg PO DAILY 11/11/17 04/01/19 Fe] Calcitriol [Rocaltrol] 0.25 mcg PO MOWEFR 04/01/19 04/01/19 DiphenhydraMINE [Benadryl] 25 mg PO HS PRN 04/01/19 04/01/19 Insulin ASPART [Novolog Flexpen] 0 unit SQ TIDWM 04/01/19 04/01/19 Insulin Degludec [Tresiba 20 unit SQ QAM 04/01/19 04/01/19 Flextouch U-100] Multivitamin [One Daily Essential] 1 tab PO DAILY 04/01/19 04/01/19 Allergies Allergy/AdvReac Type Severity Reaction Status Date / Time No Known Allergies Allergy Verified 04/01/19 12:56 Past Medical History - Past Medical History Medical history: Reports: diabetes, glaucoma, hepatitis, IV drug use, liver disease, renal disease, other Surgical history: Reports: no surgical history Psychiatric history: Reports: bipolar, depression 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 OPERATOR history - Social History Smoking Status: Never smoker Smokeless Tobacco Status: No Alcohol use: Reports: none Drug use: Reports: cocaine, IV Drug Use Physical Exam - General Limitations: no limitations General appearance: alert, in no apparent distress Course Vital Signs Temperature 97.3 F L 04/01/19 10:12 Pulse Rate 71 04/01/19 10:12 Respiratory Rate 16 04/01/19 10:12 Blood Pressure 96/63 04/01/19 10:12 O2 Sat by Pulse Oximetry 99 04/01/19 10:12 Temperature 97.3 F L 04/01/19 10:16 Pulse Rate 65 04/01/19 12:09 Respiratory Rate 16 04/01/19 13:51 Blood Pressure 130/79 04/01/19 13:51 O2 Sat by Pulse Oximetry 100 04/01/19 12:09 Oxygen Delivery Oxygen Delivery Room Air Medical Decision Making - MDM Narrative Medical decision making narrative: 1238 hrs.: Patient's blood sugars elevated. So services seen her she does not have her insulin at home, and she is homeless. I think it might be better to go and bring her into the hospital that way we can help her with her social work supervisor needs get her sugar better controlled as I fear if she goes home she will just be back with elevated blood sugars and possible DKA. - Lab Data Result diagrams: 04/01/19 10:52 04/01/19 10:52 Lab Results 04/01/19 04/01/19 04/01/19 Range/Units 10:52 10:52 10:52 WBC 4.2 L (4.3-11.1) K/mcL RBC 4.52 (3.82-4.97) M/mcL Hgb 13.4 D (11.5-15.4) g/dL Hct 39.7 (35.3-44.9) % MCV 87.8 (83.0-100.0) fL MCH 29.6 (28.0-33.3) pg MCHC 33.8 (31.6-35.5) g/dL RDW 12.7 (11.5-14.5) % Plt Count 184 D (140-400) K/mcL MPV 12.1 (9.4-12.4) fL Immature Gran % 0.5 (0-4) % Seg Neutrophils % 50.0 % Lymphocytes % 36.6 % Monocytes % 8.5 % Eosinophils % 3.5 % Basophils % 0.9 % Neutrophils # 2.1 (1.6-8.9) K/mcL Lymphocytes # 1.6 (0.6-4.6) K/mcL Monocytes # 0.4 (0.0-1.3) K/mcL Eosinophils # 0.2 (0.0-0.6) K/mcL Basophils # 0.0 (0.0-0.2) K/mcL Sodium 131 L (136-145) mEq/L Potassium 3.5 (3.5-5.1) mEq/L Chloride 92 L (98-107) mEq/L Carbon Dioxide 28 (23-29) mEq/L BUN 61 H (6-20) mg/dL Creatinine 2.30 H (0.60-1.20) mg/dL Est GFR ( Amer) 27 L (> 60) Est GFR (Non-Af Amer) 22 L (> 60) BUN/Creatinine Ratio 27 H (6-26) Glucose 447 H (70-105) mg/dL Calculated Osmolality 309 H (280-300) Calcium 10.4 H (8.6-10.3) mg/dL Total Bilirubin 0.7 (0.3-1.0) mg/dL AST TNP ALT 84 H (7-52) Units/L Alkaline Phosphatase 257 H (34-104) Units/L Serum Total Protein 8.8 (6.4-8.9) g/dL Albumin 4.9 (3.5-5.7) g/dL Globulin 3.9 H (2.4-3.5) g/dL Albumin/Globulin Ratio 1.3 (1.1-2.2) Lipase 23 (11-82) Units/L Ur Specimen Adequacy Urine Color (Yellow) Urine Clarity (Clear) Urine pH (5.0-8.0) pH Units Ur Specific [place] (1.010-1.025) Urine Protein (Neg-Trace) mg/dL Urine Glucose (UA) (Normal) mg/dL Urine Ketones (Negative) mg/dL Urine Blood (Negative) Urine Nitrite (Negative) Urine Bilirubin (Negative) Urine Urobilinogen (Normal) mg/dL Ur Leukocyte Esterase (Negative) Urine Microscopic RBC (0-3) per hpf Urine Microscopic WBC (0-3) per hpf Ur Squamous Epith Cells (None-Few) per lpf Urine Bacteria (None-Few) per hpf Hyaline Casts (None-Few) per lpf Ur Culture Indicated? (NO) Urine Opiates Screen (Eomhyt=705) ng/mL Ur Buprenorphine Scrn (Cutoff=5) ng/mL Ur Barbiturates Screen (Ghtzbb=371) ng/mL Ur Phencyclidine Scrn (Cutoff=25) ng/mL Ur Amphetamines Screen (Hauuwn=6102) ng/mL U Benzodiazepines Scrn (Pymktc=776) ng/mL Urine Cocaine Screen (Cutoff= 300) ng/mL U Marijuana (THC) Screen (Cutoff = 50) ng/mL Ur Drug Screen Interp Ethyl Alcohol < 10 (Less than 10) mg/dL Specimen Rejected Hemolyzed 04/01/19 04/01/19 04/01/19 Range/Units 11:38 11:38 11:52 WBC (4.3-11.1) K/mcL RBC (3.82-4.97) M/mcL Hgb (11.5-15.4) g/dL Hct (35.3-44.9) % MCV (83.0-100.0) fL MCH (28.0-33.3) pg MCHC (31.6-35.5) g/dL RDW (11.5-14.5) % Plt Count (140-400) K/mcL MPV (9.4-12.4) fL Immature Gran % (0-4) % Seg Neutrophils % % Lymphocytes % % Monocytes % % Eosinophils % % Basophils % % Neutrophils # (1.6-8.9) K/mcL Lymphocytes # (0.6-4.6) K/mcL Monocytes # (0.0-1.3) K/mcL Eosinophils # (0.0-0.6) K/mcL Basophils # (0.0-0.2) K/mcL Sodium (136-145) mEq/L Potassium (3.5-5.1) mEq/L Chloride (98-107) mEq/L Carbon Dioxide (23-29) mEq/L BUN (6-20) mg/dL Creatinine (0.60-1.20) mg/dL Est GFR ( Amer) (> 60) Est GFR (Non-Af Amer) (> 60) BUN/Creatinine Ratio (6-26) Glucose (70-105) mg/dL Calculated Osmolality (280-300) Calcium (8.6-10.3) mg/dL Total Bilirubin (0.3-1.0) mg/dL AST 60 H ALT (7-52) Units/L Alkaline Phosphatase (34-104) Units/L Serum Total Protein (6.4-8.9) g/dL Albumin (3.5-5.7) g/dL Globulin (2.4-3.5) g/dL Albumin/Globulin Ratio (1.1-2.2) Lipase (11-82) Units/L Ur Specimen Adequacy See below A Urine Color Light Yellow (Yellow) Urine Clarity Clear (Clear) Urine pH 6.0 (5.0-8.0) pH Units Ur Specific [place] 1.022 (1.010-1.025) Urine Protein Negative (Neg-Trace) mg/dL Urine Glucose (UA) >=1000 H (Normal) mg/dL Urine Ketones Negative (Negative) mg/dL Urine Blood Negative (Negative) Urine Nitrite Negative (Negative) Urine Bilirubin Negative (Negative) Urine Urobilinogen Normal (Normal) mg/dL Ur Leukocyte Esterase Moderate H (Negative) Urine Microscopic RBC 0-3 (0-3) per hpf Urine Microscopic WBC 30-50 H (0-3) per hpf Ur Squamous Epith Cells Many H (None-Few) per lpf Urine Bacteria None Seen (None-Few) per hpf Hyaline Casts None Seen (None-Few) per lpf Ur Culture Indicated? YES A (NO) Urine Opiates Screen Negative (Rymams=857) ng/mL Ur Buprenorphine Scrn Negative (Cutoff=5) ng/mL Ur Barbiturates Screen Negative (Bhqujk=942) ng/mL Ur Phencyclidine Scrn Negative (Cutoff=25) ng/mL Ur Amphetamines Screen Negative (Szfdja=3662) ng/mL U Benzodiazepines Scrn Negative (Nyigtx=238) ng/mL Urine Cocaine Screen Positive H (Cutoff= 300) ng/mL U Marijuana (THC) Screen Negative (Cutoff = 50) ng/mL Ur Drug Screen Interp See Below Ethyl Alcohol (Less than 10) mg/dL Specimen Rejected Attestation Statement - Attestation Attestation: This documentation is done with the assistance of Dragon dictation. Despite efforts made to ensure accuracy, there may be inaccuracies in supervisor cigarette making department or spelling and typographical errors. I examined this patient and my medical decision-making was reviewed with the Resident Physician. I agree with the documented findings, disposition and treatment plan as described except to the extent set forth below. Patient was seen and evaluated by Dr. Paz, I agree with their evaluation and management plan, I supervised care the patient's stay. Patient presents today due to elevated blood sugar. She was here previously and states she is homeless has been going to get her insulin. And she said her blood sugar was in the 460s when she was at home. Here she is in the 440s. director of employer services see her do a workup to make sure she is not in DKA and see we can do to get her sugars under better control. She may need admission. I reviewed the residents documentation and agree with the residents assessment and plan of care. I have personally had face to face time with the patient. (Brief History, Brief Exam, and MDM) I personally supervised and was present for the anaya/critical portions of the following procedures completed by the resident: EKG was interpreted by the resident under my supervision, I agree with their interpretation.
[2019-04-01 11:21] LABS: Basophils % 0.9 %; Eosinophils # 0.2 K/mcL (0.0-0.6); Eosinophils % 3.5 %; Hematocrit 39.7 % (35.3-44.9); Hemoglobin 13.4 g/dL (11.5-15.4); Immature Granulocytes % 0.5 % (0-4); Lymphocytes # 1.6 K/mcL (0.6-4.6); Lymphocytes % 36.6 %; Mean Corpuscular HGB Conc 33.8 g/dL (31.6-35.5); Mean Corpuscular Hemoglobin 29.6 pg (28.0-33.3); Mean Corpuscular Volume 87.8 fL (83.0-100.0); Mean Platelet Volume 12.1 fL (9.4-12.4); Monocytes # 0.4 K/mcL (0.0-1.3); Monocytes % 8.5 %; Neutrophils # 2.1 K/mcL (1.6-8.9); Platelet Count 184 K/mcL (140-400); Red Blood Count 4.52 M/mcL (3.82-4.97); Red Cell Distribution Width 12.7 % (11.5-14.5); White Blood Count 4.2 K/mcL (4.3-11.1)
[2019-04-01 11:33] LABS: Alanine Aminotransferase 84 Units/L (7-52); Albumin 4.9 g/dL (3.5-5.7); Albumin/Globulin Ratio 1.3 (1.1-2.2); Alkaline Phosphatase 257 Units/L (34-104); BUN/Creatinine Ratio 27 (6-26); Bilirubin,Total 0.7 mg/dL (0.3-1.0); Blood Urea Nitrogen 61 mg/dL (6-20); Calcium 10.4 mg/dL (8.6-10.3); Carbon Dioxide 28 mEq/L (23-29); Chloride 92 mEq/L (98-107); Ethanol < 10 mg/dL (Less than 10); Globulin 3.9 g/dL (2.4-3.5); Glucose 447 mg/dL (70-105); Lipase 23 Units/L (11-82); Osmolality,Calculated 309 (280-300); Potassium 3.5 mEq/L (3.5-5.1); Sodium 131 mEq/L (136-145); Total Protein 8.8 g/dL (6.4-8.9); eGFR For African Americans 27 (> 60); eGFR For Non-African Americans 22 (> 60)
--- NOTE | 2019-04-01 11:52 | Emergency Department Note ---
Disposition Clinical Impression: Hyperglycemia, Insulin dependent diabetes mellitus Disposition: Admitted As Inpatient Forms: ED Satisfaction Letter, Work/School Release Time of Disposition: 13:03 General Adult HPI - General Chief complaint: ED General Medical Stated complaint: high blood glucose Time Seen by Provider: 04/01/19 10:21 Source: patient, EMS Mode of arrival: EMS Limitations: no limitations Nursing Notes Reviewed: Yes Vital Signs Reviewed: Yes - History of Present Illness HPI Narrative: 54F with history of insulin-dependent diabetes who is currently homeless presents emergency Department with reports of high blood sugar home. She admits to generalized abdominal pain, chest pain, shortness of breath. She has not been able to obtain any insulin. She has been seen here several times over the past 2 days and social work has been involved in trying to get her placed in a jail somewhere and help her get insulin. Patient has not had any fevers, chills, cough, nausea vomiting or dysuria. Pain Scale: 0 - Related Data Home Medications Medication Instructions Recorded Confirmed Iron Polysaccharide Complex [Pro 180 mg PO DAILY 11/11/17 04/01/19 Fe] Calcitriol [Rocaltrol] 0.25 mcg PO MOWEFR 04/01/19 04/01/19 DiphenhydraMINE [Benadryl] 25 mg PO HS PRN 04/01/19 04/01/19 Insulin Degludec [Tresiba 20 unit SQ QAM 04/01/19 04/01/19 Flextouch U-100] Multivitamin [One Daily Essential] 1 tab PO DAILY 04/01/19 04/01/19 Allergies Allergy/AdvReac Type Severity Reaction Status Date / Time No Known Allergies Allergy Verified 04/01/19 12:56 All systems ED: reviewed and negative except as stated. Review of Systems: As Per HPI Constitutional: Denies: fever, chills, weakness Cardiovascular: Reports: chest pain, dyspnea on exertion. Denies: palpitations Respiratory: Denies: cough, dyspnea, wheezes Gastrointestinal: Reports: abdominal pain. Denies: nausea, vomiting, diarrhea Genitourinary: Denies: dysuria, hematuria Musculoskeletal: Denies: back pain Integumentary: Denies: rash Neurological: Denies: headache Endocrine: Reports: fatigue Past Medical History - Past Medical History Attestation: Yes The following information was validated with the patient. Source: patient Medical history: Reports: diabetes, glaucoma, hepatitis, IV drug use, liver disease, renal disease, other Surgical history: Reports: no surgical history Psychiatric history: Reports: bipolar, depression [employer] history: Reports: no [employer] history - Social History Smoking Status: Never smoker Smokeless Tobacco Status: No Alcohol use: Reports: none Drug use: Reports: cocaine, IV Drug Use Physical Exam - General Limitations: no limitations General appearance: alert, in no apparent distress - Head Head exam: atraumatic, normocephalic - Eye Eye exam: Present: normal appearance, EOMI - Neck Neck exam: Present: normal inspection. Absent: tenderness - Chest Chest inspection: Present: normal inspection. Absent: tenderness, rash - Respiratory Respiratory exam: Present: normal lung sounds bilaterally. Absent: wheezes - Cardiovascular Cardiovascular exam: Present: regular rate, normal rhythm - Abdominal Exam Abdominal exam: Present: soft, tenderness. Absent: distention, guarding, rebound, rigidity Abdominal tenderness: Present: diffuse, mild - Extremities Exam Extremities exam: Present: normal inspection. Absent: tenderness, pedal edema - Neurological Exam Neurological exam: Present: alert, oriented X3 - Psychiatric Psychiatric exam: Present: normal affect, normal mood - Skin Skin exam: Present: warm, dry, intact Course Vital Signs Temperature 97.3 F L 04/01/19 10:12 Pulse Rate 71 04/01/19 10:12 Respiratory Rate 16 04/01/19 10:12 Blood Pressure 96/63 04/01/19 10:12 O2 Sat by Pulse Oximetry 99 04/01/19 10:12 Temperature 97.3 F L 04/01/19 10:16 Pulse Rate 65 04/01/19 12:09 Respiratory Rate 16 04/01/19 12:09 Blood Pressure 132/103 04/01/19 12:09 O2 Sat by Pulse Oximetry 100 04/01/19 12:09 Oxygen Delivery Oxygen Delivery Room Air Medical Decision Making - [facility] Narrative Medical decision making narrative: Patient presents with complaints of high blood sugar and inability to obtain her insulin. [id number] blood sugar done here was in the 400s. We will obtain EKG, basic lab work and urinalysis on this patient and consult with social work for continued help in management of her case. 1300 - patient's lab work shows a glucose which is 447, creatinine under baseline and no other acute abnormalities. We will plan on admission for this patient due to her inability to require insulin and her recent homelessness as she needs more help with social work at this point in time. Patient has been accepted to the hospital by Dr. Hanson. 1 L of fluids were given and the patient will be given subcutaneous insulin for further management of her blood sugars. - Medical Records Medical records reviewed: Yes I reviewed the patient's medical records. - Lab Data Lab results reviewed: Yes I reviewed the patient's lab results. Result diagrams: 04/01/19 10:52 04/01/19 10:52 Lab Results 04/01/19 04/01/19 04/01/19 Range/Units 10:52 10:52 10:52 WBC 4.2 L (4.3-11.1) K/mcL RBC 4.52 (3.82-4.97) M/mcL Hgb 13.4 D (11.5-15.4) g/dL Hct 39.7 (35.3-44.9) % MCV 87.8 (83.0-100.0) fL MCH 29.6 (28.0-33.3) pg MCHC 33.8 (31.6-35.5) g/dL RDW 12.7 (11.5-14.5) % Plt Count 184 D (140-400) K/mcL MPV 12.1 (9.4-12.4) fL Immature Gran % 0.5 (0-4) % Seg Neutrophils % 50.0 % Lymphocytes % 36.6 % Monocytes % 8.5 % Eosinophils % 3.5 % Basophils % 0.9 % Neutrophils # 2.1 (1.6-8.9) K/mcL Lymphocytes # 1.6 (0.6-4.6) K/mcL Monocytes # 0.4 (0.0-1.3) K/mcL Eosinophils # 0.2 (0.0-0.6) K/mcL Basophils # 0.0 (0.0-0.2) K/mcL Sodium 131 L (136-145) mEq/L Potassium 3.5 (3.5-5.1) mEq/L Chloride 92 L (98-107) mEq/L Carbon Dioxide 28 (23-29) mEq/L BUN 61 H (6-20) mg/dL Creatinine 2.30 H (0.60-1.20) mg/dL Est GFR ( Amer) 27 L (> 60) Est GFR (Non-Af Amer) 22 L (> 60) BUN/Creatinine Ratio 27 H (6-26) Glucose 447 H (70-105) mg/dL Calculated Osmolality 309 H (280-300) Calcium 10.4 H (8.6-10.3) mg/dL Total Bilirubin 0.7 (0.3-1.0) mg/dL AST TNP ALT 84 H (7-52) Units/L Alkaline Phosphatase 257 H (34-104) Units/L Serum Total Protein 8.8 (6.4-8.9) g/dL Albumin 4.9 (3.5-5.7) g/dL Globulin 3.9 H (2.4-3.5) g/dL Albumin/Globulin Ratio 1.3 (1.1-2.2) Lipase 23 (11-82) Units/L Ur Specimen Adequacy Urine Color (Yellow) Urine Clarity (Clear) Urine pH (5.0-8.0) pH Units Ur Specific [place] (1.010-1.025) Urine Protein (Neg-Trace) mg/dL Urine Glucose (UA) (Normal) mg/dL Urine Ketones (Negative) mg/dL Urine Blood (Negative) Urine Nitrite (Negative) Urine Bilirubin (Negative) Urine Urobilinogen (Normal) mg/dL Ur Leukocyte Esterase (Negative) Urine Microscopic RBC (0-3) per hpf Urine Microscopic WBC (0-3) per hpf Ur Squamous Epith Cells (None-Few) per lpf Urine Bacteria (None-Few) per hpf Hyaline Casts (None-Few) per lpf Ur Culture Indicated? (NO) Urine Opiates Screen (Lwdojw=636) ng/mL Ur Buprenorphine Scrn (Cutoff=5) ng/mL Ur Barbiturates Screen (Nlbfvg=833) ng/mL Ur Phencyclidine Scrn (Cutoff=25) ng/mL Ur Amphetamines Screen (Qtopag=0278) ng/mL U Benzodiazepines Scrn (Gkwwbz=888) ng/mL Urine Cocaine Screen (Cutoff= 300) ng/mL U Marijuana (THC) Screen (Cutoff = 50) ng/mL Ur Drug Screen Interp Ethyl Alcohol < 10 (Less than 10) mg/dL Specimen Rejected Hemolyzed 04/01/19 04/01/19 04/01/19 Range/Units 11:38 11:38 11:52 WBC (4.3-11.1) K/mcL RBC (3.82-4.97) M/mcL Hgb (11.5-15.4) g/dL Hct (35.3-44.9) % MCV (83.0-100.0) fL MCH (28.0-33.3) pg MCHC (31.6-35.5) g/dL RDW (11.5-14.5) % Plt Count (140-400) K/mcL MPV (9.4-12.4) fL Immature Gran % (0-4) % Seg Neutrophils % % Lymphocytes % % Monocytes % % Eosinophils % % Basophils % % Neutrophils # (1.6-8.9) K/mcL Lymphocytes # (0.6-4.6) K/mcL Monocytes # (0.0-1.3) K/mcL Eosinophils # (0.0-0.6) K/mcL Basophils # (0.0-0.2) K/mcL Sodium (136-145) mEq/L Potassium (3.5-5.1) mEq/L Chloride (98-107) mEq/L Carbon Dioxide (23-29) mEq/L BUN (6-20) mg/dL Creatinine (0.60-1.20) mg/dL Est GFR ( Amer) (> 60) Est GFR (Non-Af Amer) (> 60) BUN/Creatinine Ratio (6-26) Glucose (70-105) mg/dL Calculated Osmolality (280-300) Calcium (8.6-10.3) mg/dL Total Bilirubin (0.3-1.0) mg/dL AST 60 H ALT (7-52) Units/L Alkaline Phosphatase (34-104) Units/L Serum Total Protein (6.4-8.9) g/dL Albumin (3.5-5.7) g/dL Globulin (2.4-3.5) g/dL Albumin/Globulin Ratio (1.1-2.2) Lipase (11-82) Units/L Ur Specimen Adequacy See below A Urine Color Light Yellow (Yellow) Urine Clarity Clear (Clear) Urine pH 6.0 (5.0-8.0) pH Units Ur Specific [place] 1.022 (1.010-1.025) Urine Protein Negative (Neg-Trace) mg/dL Urine Glucose (UA) >=1000 H (Normal) mg/dL Urine Ketones Negative (Negative) mg/dL Urine Blood Negative (Negative) Urine Nitrite Negative (Negative) Urine Bilirubin Negative (Negative) Urine Urobilinogen Normal (Normal) mg/dL Ur Leukocyte Esterase Moderate H (Negative) Urine Microscopic RBC 0-3 (0-3) per hpf Urine Microscopic WBC 30-50 H (0-3) per hpf Ur Squamous Epith Cells Many H (None-Few) per lpf Urine Bacteria None Seen (None-Few) per hpf Hyaline Casts None Seen (None-Few) per lpf Ur Culture Indicated? YES A (NO) Urine Opiates Screen Negative (Vaezek=284) ng/mL Ur Buprenorphine Scrn Negative (Cutoff=5) ng/mL Ur Barbiturates Screen Negative (Zuwigw=842) ng/mL Ur Phencyclidine Scrn Negative (Cutoff=25) ng/mL Ur Amphetamines Screen Negative (Ybtmsh=4510) ng/mL U Benzodiazepines Scrn Negative (Rzzfde=014) ng/mL Urine Cocaine Screen Positive H (Cutoff= 300) ng/mL U Marijuana (THC) Screen Negative (Cutoff = 50) ng/mL Ur Drug Screen Interp See Below Ethyl Alcohol (Less than 10) mg/dL Specimen Rejected - Radiology Data Radiology results reviewed: Yes I reviewed the patient's radiology results. - EKG Data EKG #1 EKG attestation: Yes I reviewed and interpreted this EKG. EKG results narrative: EKG obtained at 1042 on 04/01/2019 Heart rate 57 bpm, MI interval 174, QRS duration 97, QTC 443, QTC 432 Sinus rhythm with probable left ventricular hypertrophy. No signs of ST segment elevations or depressions. No other T-wave abnormalities. No old EKG for comparison at this time.
[2019-04-01 11:54] LABS: Bilirubin,Urine Negative (Negative); Blood,Urine Negative (Negative); Clarity,Urine Clear (Clear); Glucose,Urine (UA) >=1000 mg/dL (Normal); Ketones,Urine Negative (Negative); Leukocyte Esterase,Urine Moderate (Negative); Nitrite,Urine Negative (Negative); Protein,Urine Negative (Neg-Trace); Specific Gravity,Urine 1.022 (1.010-1.025); Urobilinogen,Urine Normal (Normal)
[2019-04-01 11:56] LABS: Bacteria,Urine None Seen per hpf (None-Few); Hyaline Casts,Urine None Seen per lpf (None-Few); RBC,Urine 0-3 per hpf (0-3); Squamous Epithelial Cell,Urine Many per lpf (None-Few); WBC,Urine 30-50 per hpf (0-3)
[2019-04-01 12:03] LABS: Amphetamine Screen,Urine Negative ng/mL (Cutoff=1000); Barbiturate Screen,Urine Negative ng/mL (Cutoff=200); Benzodiazepines Screen,Urine Negative ng/mL (Cutoff=200); Cannabinoid Screen,Urine Negative ng/mL (Cutoff = 50); Cocaine Screen,Urine Positive ng/mL (Cutoff= 300); Opiate Screen,Urine Negative ng/mL (Cutoff=300); Phencyclidine Screen,Urine Negative ng/mL (Cutoff=25)
[2019-04-01 12:14] LABS: Color,Urine Light Yellow (Yellow)
[2019-04-01] MEDS ORDERED: Insulin LISPRO 300 UNITS/3 ML VIAL SQ STA (12:20)
[2019-04-01] MEDS ORDERED: Acetaminophen 325 MG TABLET PO PRN (14:09)
[2019-04-01] MEDS ORDERED: Ondansetron 4 MG/2 ML VIAL IVP PRN (14:09)
[2019-04-01] MEDS ORDERED: Naloxone 0.4 MG/ML INJ IVP PRN (14:09)
[2019-04-01] MEDS ORDERED: *HR* HYDROcodone/Acet 5/325 mg TABLET PO PRN (14:09)
[2019-04-01] MEDS ORDERED: *HR* Dextrose 50 % in Water (Syg) 50 ML SYRINGE IVP PRN (16:08)
[2019-04-01] MEDS ORDERED: D5% in Water 1,000 ML IVC PRN (16:08)
[2019-04-01] MEDS ORDERED: Dextrose Gel 15 GM/37.5 ML TUBE PO PRN ×2 (16:08)
--- NOTE | 2019-04-01 16:14 | Internal Med History&Physical ---
Date of Encounter: 04/01/19 Time of Encounter: 16:10 Internal Medicine - H&P: HPI Chief complaint: Hyperglycemia Admitted From: Emergency Dept Plans for Post Hospital Care: Home History of present illness: Ms. Kuhn is a 54 year old female past medical history of insulin dependent diabetes, history of drug abuse, bipolar, depression and chronic kidney disease stage 3 pt presented to ER with uncontrolled blood sugars / hyperglycemia with epigastric discomfort. Patient stated she is homeless and not have money to buy her insulin. So patient is not taking her insulin for few days. In the ER her blood sugar so elevated @ 447 with AG-11. She denied any CP / SOB. Her UDS showed Cocaine positive. Pt stated her snorted cocaine last on . Past Med Surg Social Fam HX - Past Medical History Medical history: diabetes, glaucoma, hepatitis, IV drug use, liver disease, renal disease, other Additional medical history: Retinopathy Psychiatric history: bipolar, depression - Past Surgical History Surgical History: no surgical history - Social History Smoking Status: Never smoker Smokeless Tobacco Status: No Alcohol use: none Drug use: cocaine, IV Drug Use - Family History Father Living Status: Still Living Hx Family Cardiac Disorders: No Internal Medicine - H&P: Meds Iron Polysaccharide Complex [Pro Fe] 180 mg PO DAILY 11/11/17 [History] Calcitriol [Rocaltrol] 0.25 mcg PO MOWEFR 04/01/19 [History] DiphenhydraMINE [Benadryl] 25 mg PO HS PRN 04/01/19 [History] Insulin ASPART [Novolog Flexpen] 0 unit SQ TIDWM 04/01/19 [History] Insulin Degludec [Tresiba Flextouch U-100] 20 unit SQ QAM 04/01/19 [History] Multivitamin [One Daily Essential] 1 tab PO DAILY 04/01/19 [History] Allergy/AdvReac Type Severity Reaction Status Date / Time No Known Allergies Allergy Verified 04/01/19 12:56 All Systems PM: A 10-system review of systems was performed and is negative for pertinent findings except as documented above in the HPI. Review of systems: All the systems are reviewed everything is benign except the systems and symptom s I mentioned in the history of present illness - Constitutional Vitals: Temp Pulse Resp BP Pulse Ox 97.7 F 73 16 118/69 98 04/01/19 15:15 04/01/19 15:15 04/01/19 15:15 04/01/19 15:15 04/01/19 15:15 General appearance: Present: cooperative, A&O X 3, no acute distress, answers questions appropriately Exam: a - Head Head exam: Present: atraumatic, normal inspection - Neck Neck exam general surgery: Present: supple - Respiratory Respiratory exam: Present: decreased breath sounds. Absent: rales, respiratory distress, rhonchi, wheezes - Cardiovascular Cardiovascular exam: Present: RRR, +S1, +S2. Absent: tachycardia - GI/Abdominal GI/Abdominal exam: Present: normal bowel sounds, soft. Absent: guarding, rebound, rigid, tenderness - Extremities Exam Extremities exam: Present: normal inspection. Absent: calf tenderness, pedal edema, tenderness - Back Exam Back exam: Absent: CVA tenderness (L), CVA tenderness (R) - Neurological Exam Neurological exam: Present: alert, oriented X3, no focal deficits, strengths equal and symetr throughout - Psychiatric Psychiatric exam: Present: depressed - Skin Skin exam: Absent: rash Internal Med - H&P Results - Labs CBC & Chem 7: 04/01/19 10:52 04/01/19 10:52 Labs: Short CBC 04/01/19 Range/Units 10:52 WBC 4.2 L (4.3-11.1) K/mcL Hgb 13.4 D (11.5-15.4) g/dL Hct 39.7 (35.3-44.9) % Plt Count 184 D (140-400) K/mcL Neutrophils # 2.1 (1.6-8.9) K/mcL BMP 04/01/19 10:52 Sodium 131 L Potassium 3.5 Chloride 92 L Carbon Dioxide 28 BUN 61 H Creatinine 2.30 H Glucose 447 H Calcium 10.4 H Liver Function 04/01/19 04/01/19 Range/Units 10:52 11:52 Total Bilirubin 0.7 (0.3-1.0) mg/dL AST TNP 60 H ALT 84 H (7-52) Units/L Alkaline Phosphatase 257 H (34-104) Units/L Albumin 4.9 (3.5-5.7) g/dL Urine 04/01/19 Range/Units 11:38 Urine Color Light Yellow (Yellow) Urine Clarity Clear (Clear) Urine pH 6.0 (5.0-8.0) pH Units Ur Specific [place] 1.022 (1.010-1.025) Urine Protein Negative (Neg-Trace) mg/dL Urine Glucose (UA) >=1000 H (Normal) mg/dL - Assessment and Plan (1) Hyperglycemia Current Visit: Yes Status: Acute Assessment and plan: Place the pt on tele for observation Her BS are severely elevated due to her non compliance with Insulin Started her on IV hydration since patient looks dehydrated Placed her on ISS - medium scale and Levemir 25 U BID cont close monitoring CM / SW consulted to arrange for insulin (2) Insulin dependent diabetes mellitus Current Visit: Yes Status: Acute Assessment and plan: as above (3) Crack cocaine use Current Visit: No Status: Acute Assessment and plan: Her UDS positive for cocaine Counseled the pt to quit doing drugs will monitor closely for withdrawal symptoms avoid BB (4) CKD (chronic kidney disease) Current Visit: No Status: Acute Assessment and plan: stable Cr At baseline Qualifiers: Chronic kidney disease stage: stage 3 (moderate) Qualified Code(s): N18.3 - Chronic kidney disease, stage 3 (moderate) (5) UTI (urinary tract infection) Current Visit: No Status: Acute Assessment and plan: UA is abnormal start her on empirical abx IV Rocephin Qualifiers: Urinary tract infection type: acute cystitis Hematuria presence: without hematuria Qualified Code(s): N30.00 - Acute cystitis without hematuria (6) DVT prophylaxis Current Visit: No Status: Acute Assessment and plan: SQ heparin - Time Spent With Patient Total time spent is greater than 50% in coordination of care (as documented) at patient's floor/unit and/or counseling patient:
[2019-04-01] MEDS ORDERED: *HR* Metformin 500 MG TABLET PO SCH (17:00)
[2019-04-01 17:23] LABS: Estimated Average Glucose 278 mg/dl
[2019-04-01] MEDS: Insulin LISPRO 300 UNITS/3 ML VIAL SQ SCH (18:03)
[2019-04-01] MEDS ORDERED: Insulin LISPRO 300 UNITS/3 ML VIAL SQ SCH (21:00)
[2019-04-01] MEDS ORDERED: Insulin DETEMIR 100 UNIT/ML X5UNITS SQ SCH (21:00)
[2019-04-01] MEDS: Insulin DETEMIR 100 UNIT/ML X5UNITS SQ SCH (22:42)
[2019-04-02] MEDS: 0.9 % Sodium Chloride 1,000 ML IVC SCH ×2 (05:17→09:48)
[2019-04-02] MEDS: cefTRIAXone 1,000 MG in Water for inj. (sterile) 10 ML IVP SCH ×2 (05:17→09:56)
[2019-04-02 07:21] LABS: Hematocrit 35.1 % (35.3-44.9); Hemoglobin 11.4 g/dL (11.5-15.4); Mean Corpuscular HGB Conc 32.5 g/dL (31.6-35.5); Mean Corpuscular Hemoglobin 28.5 pg (28.0-33.3); Mean Corpuscular Volume 87.8 fL (83.0-100.0); Mean Platelet Volume 11.6 fL (9.4-12.4); Platelet Count 148 K/mcL (140-400); Red Cell Distribution Width 12.8 % (11.5-14.5); White Blood Count 5.6 K/mcL (4.3-11.1)
[2019-04-02 07:29] VITALS: BP 103/60
--- NOTE | 2019-04-02 07:35 | Electrocardiograph Report ---
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
[2019-04-02] MEDS ORDERED: *HR* GlipiZIDE XL (24 HR) 10 MG TABLET PO SCH (08:00)
[2019-04-02 08:02] LABS: Calcium 9.5 mg/dL (8.6-10.3); Chol/HDL Ratio 2.6 (0-4.9); Magnesium 1.5 mg/dL (1.6-2.6); Phosphorous 3.9 mg/dL (2.7-4.5); Potassium 3.5 mEq/L (3.5-5.1)
[2019-04-02] MEDS: Insulin LISPRO 300 UNITS/3 ML VIAL SQ SCH (08:56)
[2019-04-02] MEDS ORDERED: Multivit/Ca/Min/Fe/FA 1 TAB TABLET PO SCH (09:00)
[2019-04-02] MEDS ORDERED: Iron Polysaccharide Complex 150 MG CAPSULE PO SCH (09:00)
[2019-04-02] MEDS ORDERED: Aspirin Enteric Coated 81 MG Tablet PO SCH (09:00)
[2019-04-02] MEDS: Insulin DETEMIR 100 UNIT/ML X5UNITS SQ SCH (09:49)
--- NOTE | 2019-04-02 10:29 | Discharge Summary ---
- NOTES TO OUTPATIENT PROVIDER Notes to Outpatient Provider: f/u with PCP in one week. Please take Insulin Levemir 10 U BID. and Regular Insulin with Sliding scale coverage at medium scale. Orders not resulted at time of discharge: Pending orders 04/01/19 11:38 Culture,Urine [RM] Stat Date of Encounter: 04/02/19 Time of Encounter: 10:25 - Discharge Diagnosis (1) Hyperglycemia Priority: Primary Status: Acute (2) Insulin dependent diabetes mellitus Priority: Secondary Status: Acute (3) Crack cocaine use Priority: Secondary Status: Acute (4) CKD (chronic kidney disease) Priority: Secondary Status: Acute Qualifiers: Chronic kidney disease stage: stage 3 (moderate) Qualified Code(s): N18.3 - Chronic kidney disease, stage 3 (moderate) (5) UTI (urinary tract infection) Priority: Secondary Status: Acute Qualifiers: Urinary tract infection type: acute cystitis Hematuria presence: without hematuria Qualified Code(s): N30.00 - Acute cystitis without hematuria (6) DVT prophylaxis Priority: Secondary Status: Acute Hospital course: Ms. Kuhn is a 54 year old female past medical history of insulin dependent diabetes, history of drug abuse, bipolar, depression and chronic kidney disease stage 3 pt presented to ER with uncontrolled blood sugars / hyperglycemia with epigastric discomfort. Patient stated she is homeless and not have money to buy her insulin. So patient is not taking her insulin for few days. In the ER her blood sugar was @ 447 with AG-11. She denied any CP / SOB. Her UDS showed Cocaine positive. Pt stated her snorted cocaine last on . She was admitted in the hospital and placed her on corrective therapist. She was started on insulin sliding scale and Levemir 25 U BID. This morning her BS dropped down to high 40's and 60's. So changed her Levemir to 10 U BID and recommended to continue ISS at medium. She does have abnormal UA concerning for UTI so gave her IV Rocephin here and switched to PO Omnicef today. I did trauma counsellor her to quit doing drugs. Pt is willing to go to [facility]. So will d/c her in a stable condition today. - Time Spent with Patient Total time spent providing and/or coordinating discharge services: - Discharge Medications Prescriptions: New Aspirin Enteric Coated [Aspirin EC] 81 mg PO DAILY tablet. Omeprazole [PriLOSEC] 40 mg PO DAILY@0630 capsule. Insulin DETEMIR [Levemir] 10 unit SQ BID [id number] Continued Iron Polysaccharide Complex [Pro Fe] 180 mg PO DAILY DiphenhydraMINE [Benadryl] 25 mg PO HS PRN PRN Reason: Sleep Multivitamin [One Daily Essential] 1 tab PO DAILY Calcitriol [Rocaltrol] 0.25 mcg PO MOWEFR Insulin ASPART [Novolog Flexpen] 0 unit SQ TIDWM Discontinued Insulin Degludec [Tresiba Flextouch U-100] 20 unit SQ QAM Home Medications: Iron Polysaccharide Complex [Pro Fe] 180 mg PO DAILY 11/11/17 [History] Calcitriol [Rocaltrol] 0.25 mcg PO MOWEFR 04/01/19 [History] DiphenhydraMINE [Benadryl] 25 mg PO HS PRN 04/01/19 [History] Insulin ASPART [Novolog Flexpen] 0 unit SQ TIDWM 04/01/19 [History] Multivitamin [One Daily Essential] 1 tab PO DAILY 04/01/19 [History] Aspirin Enteric Coated [Aspirin EC] 81 mg PO DAILY tablet. 04/02/19 [Rx] Cefdinir [Omnicef] 300 mg PO DAILY #5 capsule 04/02/19 [Rx] Insulin DETEMIR [Levemir] 10 unit SQ BID [id number] 04/02/19 [Rx] Omeprazole [PriLOSEC] 40 mg PO DAILY@0630 capsule. 04/02/19 [Rx] Allergies/Adverse Reactions: Allergy/AdvReac Type Severity Reaction Status Date / Time No Known Allergies Allergy Verified 04/01/19 12:56 Date of admission: 04/01/19 13:18 Primary care physician: PCP NONE Consults: 04/01/19 15:22 Consult to Upper Shaper [CONS] Routine Reason for Consult: homeless. - Constitutional Vitals: Temp Pulse Resp BP Pulse Ox 97.9 F 59 16 103/60 99 04/02/19 07:27 04/02/19 07:27 04/02/19 07:27 04/02/19 07:27 04/02/19 07:27 General appearance: Present: cooperative, A&O X 3, no acute distress, answers questions appropriately Exam: Gen: Alert, awake, Oriented to time,place and person Chest: Diminished breath sounds B/L, No wheezing, No crackles, No rales Heart: S1S2+ RRR No murmurs Abd: Soft, NT, BS +, No organomegaly Ext: No edema, pulses are palpable, No calf tenderness Neuro : No acute focal neuro deficits noticed Skin: No rash. - Patient Status Disposition: Transfer Other Condition: Good - Discharge Instructions Follow Up With: NONE,PCP [Primary Care Provider] - - Diet and Activity Activity: increase activity as tolerated Diet: low salt diet
[2019-04-03] MEDS ORDERED: cefTRIAXone 1,000 MG in Water for inj. (sterile) 10 ML IVP SCH (09:00)
== END 2019-04-02 14:42 | disposition other institution (70) ==
LOC: EMEROOARM 09:55 → 3BNU 09:55 → SUATTDRO 13:18 → 3BNU 14:35
PROVIDERS: ADMIT Internal Medicine; ATTEND Family Medicine